=== PATIENT | female | born 1955 | race African-American/Black ===

== ENCOUNTER 2017-05-16 13:17 | Inpatient (IN) | payer OTHER ==
[~2017-05-16] VITALS: Ht 160 cm; Wt 98.9 kg
[~2017-05-16 13:17] MED LIST: GLUCOTROL 5 MG T5 MG PO; HYZAAR 100-25 T1 TAB PO; LASIX20 MG; METHOTREXATE2.5 MG PO; PERCOCET 7.5/321 TAB PO; PROTONIX40 MG PO; TENORMIN50 MG PO; ZOCOR40 MG PO; ZYLOPRIM100 MG PO
[2017-05-16] MEDS ORDERED: CALAN SR240 MG PO (15:43)
[2017-05-16] MEDS ORDERED: POTASSIUM CHLORIDE (15:44)
[2017-05-16] MEDS ORDERED: GLIPIZIDE10 MG PO (15:44)
[2017-05-16] MEDS ORDERED: CALCIPOTRIENE60 ML TP (15:45)
[2017-05-16] MEDS ORDERED: BD ULTRA-FINE PEN ND (15:45)
[2017-05-16 15:48] VITALS: BP 143/79; BMI 42.2
[2017-05-16 16:00] VITALS: BP 143/79
--- NOTE | 2017-05-16 17:46 | NUR ---
PT REFUSED JAMES CATH
--- NOTE | 2017-05-16 19:29 | NUR ---
RECEIVED REPORT, WILL ASSUME CARE OF PT, PT TALKING ON PHONE, PLACE [place] HAT IN COMMODE, EXPLAIN HOW IMPORTANT IT IS TO KEEP UP WITH I & O, PT REFUSED A JAMES, BED IS LOW, SRX2, CALL LIGHT IN REACH, FAMILY AT BED SIDE, WILL CONTINUE PLAN OF CARE
[2017-05-16 20:00] VITALS: BP 114/63
--- NOTE | 2017-05-17 02:15 | NUR ---
ASSESSMENT COMPLETE, SEE FLOW SHEET, BED IS LOW, SRX2, CALL LIGHT IN REACH, FAMILY AT BED SIDE, WILL CONTINUE PLAN OF CARE
[2017-05-17 04:20] VITALS: BP 168/96
[2017-05-17 06:03] LABS: BASOPHILS 0.2 % (0-2); EOSINOPHILS 1.4 % (0-7); HEMATOCRIT 32.4 % (36.0-48.0); HEMOGLOBIN 10.4 g/dL (12-16); IMMATURE GRANULOCYTES 0.2 % (0-5); LYMPHOCYTES 19.1 % (15-50); MCH 27.9 pg (26.0-34.0); MCHC 32.1 g/dL (31.0-37.0); MCV 86.9 fL (80.0-100.0); MEAN PLATELET VOLUME 9.9 fL (7.4-10.4); MONOCYTES 11.2 % (2-11); NEUTROPHILS 67.9 % (40-80); PLATELET COUNT 243 10x3/uL (130-400); RBC 3.73 10x6/uL (4.00-5.40); RDW 15.4 % (11.5-14.5); WBC 11.9 10x3/uL (4.8-10.8)
[2017-05-17 07:05] LABS: ANION GAP 11.7 mmol/L (8-16); CALCIUM 8.2 mg/dL (8.5-10.1); CARBON DIOXIDE 30.9 mmol/L (21.0-32.0); CREATININE - SERUM 5.1 mg/dL (0.6-1.3); PHOSPHOROUS 4.3 mg/dL (2.5-4.9); POTASSIUM - SERUM 4.6 mmol/L (3.5-5.1)
[2017-05-17 08:00] VITALS: BP 167/93
--- NOTE | 2017-05-17 10:00 | NUR ---
NEW ORDER FOR US OF LEFT AND RIGHT VEIN MAPPING.
--- NOTE | 2017-05-17 12:00 | NUR ---
GLUCOSE LEVEL 159. TWO UNITS OF S/S INSULIN GIVEN
[2017-05-17 12:30] VITALS: BP 143/78
--- NOTE | 2017-05-17 12:46 | NUR ---
RESTING QUIETLY IN BED. NO DISTRESS. WILL CONTINUE TO MONITOR.
[2017-05-17 13:27] VITALS: Ht 160 cm; Wt 98.9 kg
--- NOTE | 2017-05-17 15:24 | NUR ---
PRN PERCOCET GIVEN FOR LEFT SIDE RIB PAIN/DISC
[2017-05-17 15:38] VITALS: BP 134/64
[2017-05-17 19:00] VITALS: BP 172/93
--- NOTE | 2017-05-17 19:37 | NUR ---
RECEIVED REPORT, WILL ASSUME CARE OF PT, PT TALKING ON PHONE, DENIES ANY NEEDS AT THIS TIME, BED IS LOW, SRX2, CALL LIGHT IN REACH, WILL CONTINUE PLAN OF CARE
--- NOTE | 2017-05-17 19:55 | NUR ---
ASSEMBLER 1ST SHIFT AT BEDSIDE TO OBTAIN VITALS, CALL LIGHT IN REACH. WILL CONTINUE WITH PLAN OF CARE.
[2017-05-18] VITALS: BP 168/80
--- NOTE | 2017-05-18 01:51 | NUR ---
ASSESSMENT COMPLETE, SEE FLOW SHEET, PT SLEEPING, BED IS LOW, SRX2, CALL LIGHT IN REACH, AT BED SIDE WILL CONTINUE PLAN OF CARE
[2017-05-18 04:00] VITALS: BP 178/102
[2017-05-18 06:06] LABS: ANION GAP 9.7 mmol/L (8-16); CALCIUM 8.4 mg/dL (8.5-10.1); CARBON DIOXIDE 33.2 mmol/L (21.0-32.0); CREATININE - SERUM 5.6 mg/dL (0.6-1.3)
[2017-05-18 06:08] LABS: BASOPHILS 0.2 % (0-2); EOSINOPHILS 2.4 % (0-7); HEMATOCRIT 33.5 % (36.0-48.0); HEMOGLOBIN 10.9 g/dL (12-16); IMMATURE GRANULOCYTES 0.3 % (0-5); LYMPHOCYTES 21.5 % (15-50); MCH 27.9 pg (26.0-34.0); MCHC 32.5 g/dL (31.0-37.0); MCV 85.9 fL (80.0-100.0); MEAN PLATELET VOLUME 9.4 fL (7.4-10.4); MONOCYTES 12.3 % (2-11); NEUTROPHILS 63.3 % (40-80); PLATELET COUNT 253 10x3/uL (130-400); RDW 15.2 % (11.5-14.5); WBC 10.1 10x3/uL (4.8-10.8)
[2017-05-18 06:10] LABS: POTASSIUM - SERUM 3.9 mmol/L (3.5-5.1)
--- NOTE | 2017-05-18 07:57 | NUR ---
PT IN BED AWAKE AND ALERT. PROVIDED PAIN MEDICATION ORDERED. DENIES FURTHER NEEDS AT THIS TIME. WILL CONTIUE TO MONITOR
[2017-05-18 08:01] VITALS: BP 169/84
--- NOTE | 2017-05-18 09:47 | NUR ---
PT SITTING UP IN BED WATCHING TV IV BUMEX DRIP INFUSING TO R HAND WITH NO PROBLEM, DENIES NEEDS WILL CONT TO MONITOR
[2017-05-18 11:52] VITALS: BP 167/83
[2017-05-18 16:07] VITALS: BP 153/76
--- NOTE | 2017-05-18 18:54 | NUR ---
PT SITTING UP IN BED WATCHING TV. AKUA COHN LPN OBTAINED CONSENTS FOR PROCEDURE TOMORROW. BUMEX DRIP STILL INFUSING TO R HAND W/O ANY ISSUES. PT DENIES ANY NEEDS
[2017-05-18 19:00] VITALS: BP 166/94
--- NOTE | 2017-05-18 19:30 | NUR ---
ALERT/AWAKE TALKING TO VISITORS. REQUESTED APPLEJUICE. RR EVEN U/L WITH 02 AT 3L/NC. IV IN R HAND WITH BUMEX INFUSING AT 10ML/HR. TELEMETRY SHOWS 66 SR ON MONITOR. ORIENTED TO CALL LIGHT FOR ANY NEEDS.
--- NOTE | 2017-05-18 23:30 | NUR ---
ADMIN PERCOCET 5/325 MG PER REQUEST FOR C/O HIP/LEG PAIN LEVEL 7 ON NUMBER SCALE. DESCRIBED ACHING/THROBBING.
[2017-05-19 04:00] VITALS: BP 176/98
--- NOTE | 2017-05-19 05:25 | NUR ---
TAKING SHOWER WITH HIBICLENS. IV CAME OUT.
--- NOTE | 2017-05-19 06:25 | NUR ---
RESITED IV IN LEFT FA 22 GUAGE. DAVID BLOOD FROM CATHETER FOR TRACTOR MECHANIC.
[2017-05-19 06:39] LABS: BASOPHILS 0.3 % (0-2); EOSINOPHILS 2.6 % (0-7); HEMATOCRIT 34.5 % (36.0-48.0); HEMOGLOBIN 11.2 g/dL (12-16); IMMATURE GRANULOCYTES 0.3 % (0-5); LYMPHOCYTES 24.7 % (15-50); MCH 28.1 pg (26.0-34.0); MCHC 32.5 g/dL (31.0-37.0); MCV 86.7 fL (80.0-100.0); MEAN PLATELET VOLUME 9.8 fL (7.4-10.4); MONOCYTES 11.7 % (2-11); NEUTROPHILS 60.4 % (40-80); PLATELET COUNT 292 10x3/uL (130-400); RBC 3.98 10x6/uL (4.00-5.40); RDW 15.3 % (11.5-14.5); WBC 11.1 10x3/uL (4.8-10.8)
[2017-05-19 06:47] LABS: ANION GAP 8.2 mmol/L (8-16); CALCIUM 8.5 mg/dL (8.5-10.1); CARBON DIOXIDE 33.4 mmol/L (21.0-32.0); CREATININE - SERUM 5.8 mg/dL (0.6-1.3); POTASSIUM - SERUM 3.6 mmol/L (3.5-5.1)
--- NOTE | 2017-05-19 07:30 | NUR ---
RECEIVED REPORT. ASSUMED CARE OF PATIENT. PATIENT NPO FOR SURGICAL PROCEDURE THIS AM. PATIETN ALERT/ORIENTED. RESP EVEN AND UNLABORED. AT BEDSIDE. CALL LIGHT WITHIN REACH. NO DISTRESS.
[2017-05-19 08:00] VITALS: BP 170/96
--- NOTE | 2017-05-19 08:03 | NUR ---
SURGERY LEFT WITH PATIENT VIA BED AT 0800. PATIENT LEFT UNIT IN NO DISTRESS.
--- NOTE | 2017-05-19 08:40 | NUR ---
SURGERY CALLED AT 0830 DUE TO PATIENT STATES SHE TOLD THE SURGERY NURSES THAT SHE HAD NOT BEEN PREOP'T. INFORMED SURGERY NURSE THAT THIS COLORIST FORMULATOR HAD NOT BEEN CALLED TO PREOP PATIENT AND SURGERY NURSE STATES THAT SHE WAS ON UNIT AND TOLD THE PATIENTS NURSE AND EVEN PULLED ALL PREOP ORDERS IN THE COMPUTER, UP WITH PATIENTS NURSE. SURGERY NURSE STATES THAT THE PATIENT NURSE STATED SHE WOULD GIVE THE PREOP MEDS AT THAT TIME. AFTER SURGERY NURSE DESCRIBED THE PATIENT NURSE THAT THIS TOOK PLACE WITH, THIS COLORIST FORMULATOR ACKNOLWEDGED WHOM SHE WAS DESCRIBING. APOLOGIZED TO SURGERY NURSE FOR MEDS NOT BEING ADMINISTERED. MEDS TAKEN TO SURGERY AT 0830 FOR ADMINISTRATION.
[2017-05-19 12:03] VITALS: BP 150/76
--- NOTE | 2017-05-19 12:05 | NUR ---
RECEIVED PATIENT FROM RECOVERY AT THIS TIME. EYES CLOSED, EASILY AROUSED. RESP EVEN AND UNLABORED. BP 150/76. AT BEDSIDE. PATIENT REQUESTING ICE CHIPS FOR SORE THROAT FROM INTUBATION. LEFT ARM ELEVATED ON PILLOW. 2 SITES WITH DRESSINGS CLEAN DRY AND INTACT. RIGHT CHEST HEMESPLIT. BIOPATCH VISIBLE. NO DISTRESS. DENIES ANY PAIN. CALL LIGHT WITHIN REACH.
--- NOTE | 2017-05-19 14:26 | NUR ---
JUICE TO FLOOR AT THIS TIME FOR PATIENT.
[2017-05-19 16:00] VITALS: BP 175/76
--- NOTE | 2017-05-19 16:42 | NUR ---
FSBS 153. 2 UNITS HUMULIN R ADMINISTERED PER SLIDING SCALE.
--- NOTE | 2017-05-19 18:00 | NUR ---
MEDICATED FOR PAIN AT THIS TIME. NO DISTRESS.
--- NOTE | 2017-05-19 18:07 | NUR ---
EXTRA PILLOWS PROVIDED. ELEVATED LEFT ARM. ICE PACK APPLIED. PATIENT RESTING WITH EYES CLOSED. FAMILY AT BEDSIDE. NO DISTRESS.
--- NOTE | 2017-05-19 19:17 | NUR ---
PT LYING IN BED WITH LT ARM ELEVATED ON PILLOW ITH ICE PACK ON TOP OF SITE. PT STATED ARM IS THROBBING, PT CAN HAVE ANOTHER PAIN MEDICATION AT 2200. USE DISTRACTION METHOD TO DIVERT PAIN. BED IS IN LOW POSITION, CALL LIGHT IN REACH
[2017-05-19 20:00] VITALS: BP 143/67
--- NOTE | 2017-05-19 20:16 | NUR ---
PT DAUGHTER CAME TO NURSES STATION REQUESTIONG COMPLETE BED CHANGE,PT FOUND BUG IN LINENS AND DAUGHTER KILLED IT. PT ALSO REQUESTED BATH AT THIS TIME, BROUGHT PATIENT BUCKET OF BATH SUPPLIES BUT DAUGHTER WANTED TO GIVE PT BATH, BED IN LOW PSOITION CALL LIGHT IS IN REACH.
[2017-05-20] VITALS: BP 146/81
[2017-05-20 04:00] VITALS: BP 150/77
[2017-05-20 06:07] LABS: BASOPHILS 0.3 % (0-2); EOSINOPHILS 2.3 % (0-7); HEMATOCRIT 31.9 % (36.0-48.0); HEMOGLOBIN 10.3 g/dL (12-16); IMMATURE GRANULOCYTES 0.3 % (0-5); LYMPHOCYTES 24.3 % (15-50); MCH 28.1 pg (26.0-34.0); MCHC 32.3 g/dL (31.0-37.0); MCV 87.2 fL (80.0-100.0); MEAN PLATELET VOLUME 9.8 fL (7.4-10.4); MONOCYTES 12.5 % (2-11); NEUTROPHILS 60.3 % (40-80); PLATELET COUNT 235 10x3/uL (130-400); RBC 3.66 10x6/uL (4.00-5.40); RDW 15.3 % (11.5-14.5); WBC 10.4 10x3/uL (4.8-10.8)
[2017-05-20 06:51] LABS: ANION GAP 9.7 mmol/L (8-16); CALCIUM 8.1 mg/dL (8.5-10.1); POTASSIUM - SERUM 3.7 mmol/L (3.5-5.1)
--- NOTE | 2017-05-20 07:10 | NUR ---
RECEIVED REPORT. ASSUMED CARE OF PATIENT. PATIENT RESTING WITH EYES CLOSED, LYING ON LEFT LATERAL SIDE WITH LEFT ARM ELEVATED ON PILLOWS EXTENDED AWAY FROM BODY. PATIENT WITH FAMILY AT BEDSIDE WITH EYES CLOSED WELL. PATIENT IS EASILY AROUSED. RESP EVEN AND UNLABORED. LEFT ARM WITH BRUISING NOTED. CALL LIGHT WITHIN REACH. NO DISTRESS.
[2017-05-20 08:34] VITALS: BP 161/70
--- NOTE | 2017-05-20 10:28 | NUR ---
MEDICATED FOR PAIN AT THIS TIME. NO DISTRESS.
--- NOTE | 2017-05-20 11:23 | NUR ---
FSBS 106. NO INSULIN REQUIRED PER SLIDING SCALE.
[2017-05-20 12:04] VITALS: BP 153/77
[2017-05-20 16:00] VITALS: BP 122/55
--- NOTE | 2017-05-20 16:32 | NUR ---
FSBS 92. NO INSULIN ADMINISTERED PER SLIDING SCALE.
--- NOTE | 2017-05-20 18:55 | NUR ---
SITTING IN BED, FAMILY AT BEDSIDE. CALL LIGHT WITHIN REACH. NO DISTRESS. DENIES NEEDS.
[2017-05-20 21:40] VITALS: BP 138/67
[2017-05-21 06:05] LABS: BASOPHILS 0.3 % (0-2); EOSINOPHILS 2.2 % (0-7); HEMATOCRIT 30.5 % (36.0-48.0); HEMOGLOBIN 9.7 g/dL (12-16); IMMATURE GRANULOCYTES 0.2 % (0-5); LYMPHOCYTES 20.2 % (15-50); MCH 27.7 pg (26.0-34.0); MCHC 31.8 g/dL (31.0-37.0); MCV 87.1 fL (80.0-100.0); MEAN PLATELET VOLUME 8.6 fL (7.4-10.4); MONOCYTES 13.9 % (2-11); NEUTROPHILS 63.2 % (40-80); RDW 15.2 % (11.5-14.5); WBC 9.6 10x3/uL (4.8-10.8)
[2017-05-21 06:09] LABS: PLATELET COUNT 178 10x3/uL (130-400)
[2017-05-21 06:24] LABS: ANION GAP 9.9 mmol/L (8-16); CALCIUM 7.9 mg/dL (8.5-10.1); CARBON DIOXIDE 32.5 mmol/L (21.0-32.0); CREATININE - SERUM 5.7 mg/dL (0.6-1.3); POTASSIUM - SERUM 3.4 mmol/L (3.5-5.1)
[2017-05-21 07:34] VITALS: BP 156/72
--- NOTE | 2017-05-21 08:26 | NUR ---
PATIENT IS SITTING UP IN BED. PATIENT IS AWAKE, ALERT, AND ORIENTED X4. DAUGHTER AT PATIENT'S BEDSIDE. PATIENT COMPLAINS OF PAIN IN HER LEFT LEG. PATIENT REPORTS HER PAIN LEVEL AN "8" ON A 0-10 SCALE. PRN PERCOCET GIVEN TO PATIENT FOR PAIN. PATIENT DENIES ANY FURTHER NEEDS AT PRESENT TIME. CALL LIGHT IN PATIENT'S REACH. WILL MONITOR PATIENT.
[2017-05-21 11:50] VITALS: BP 173/81
--- NOTE | 2017-05-21 12:55 | NUR ---
PATIENT TRANSFERRED VIA WHEELCHAIR TO DIALYSIS.
--- NOTE | 2017-05-21 13:37 | NUR ---
Nutrition follow-up: Diet: Renal ADA consistent CHO PO intake 100% of meals Labs reviewed no BM charted Wt: 230# -> down 9# from admit. Started dialysis today. RDN following.
--- NOTE | 2017-05-21 15:41 | NUR ---
PATIENT TRANSFERRED BACK TO HER ROOM VIA WHEELCHAIR FROM DIALYSIS.
--- NOTE | 2017-05-21 17:09 | NUR ---
Patient Name: KISHA NIELSEN Admission Status: Urgent Accout number: [id number] Admission Date: 05-16-2017 : 1955 Admission Diagnosis:TYPE 2 DIABETES MELLITUS WITH DIABETIC NEPHROPATHY Attending: HUNTER Current LOS: 5 Anticipated DC Date: 05-24-2017 Planned Disposition: Home Primary Insurance: [employer] PPO Discharge Planning Comments: * Is the patient Alert and Oriented? Yes 0 * How many steps to enter\exit or inside your home? 4-O/4-I 0 * PCP DR. CARLITO VILLATORO, [place] 0 * Pharmacy [facility] 0 * Preadmission Environment Home with Family 0 * ADLs Independent 0 * Equipment Cane 0 * Other Equipment NO MEDICAL EQUIPMENT PROVIDER PREFERECE 0 * List name and contact numbers for known caregivers / representatives who currently or will assist patient after discharge: ANDERS NIELSEN, SPOUSE, 0 * Community resources currently utilized None 0 * Please name any agencies selected above. NONE 0 * Additional services required to return to the preadmission environment? Yes * Can the patient safely return to the preadmission environment? Yes 0 * Has this patient been hospitalized within the prior 30 days at any hospital? No 0 CM MET WITH PT IN ROOM TO DISCUSS DISCHARGE PLANNING AND NEEDS. PT REPORTS LIVING AT HOME INDEPENDENTLY WITH HER SPOUSE. PT HAS A CANE WITH NO MEDICAL EQUIPMENT PROVIDER PREFERENCE. PT HAS NO OUTSIDE SERVICES ASSISTING IN THE HOME. CM DISCUSSED AVAILABILITY OF HOME HEALTH, REHAB SERVICES AND MEDICAL EQUIPMENT. PT REPORTS SHE WILL NEED OUTPATIENT DIALYSIS AND THE DOCTOR TOLD HER THAT IT WILL BE ARRANGED IN [place] THREE DAYS PER WEEK. PT REPORTS FAMILY WILL ASSIST WITH TRANSPORTATION TO DIALYSIS. PT REPORTS HER SPOUSE OR DAUGHTER WILL PICK HER UP FOR DISCHARGE HOME. CM TO FOLLOW UP WITH PHYSICIAN FOR ORDER TO ARRANGE OUTPATIENT HEMODIALYSIS AND ALSO WITH MANOJ HOLDER, PATIENT PATHWAYS COORDINATOR TO ARRANGE OUTPATIENT DIALYSIS CLINIC FOR DISCHARGE HOME. Cylinder Head Assembler: Humphrey Lorenzana
--- NOTE | 2017-05-21 19:30 | NUR ---
FRIEND/FAMILY IN BEDSIDE TALK TO PT.
[2017-05-21 20:59] VITALS: BP 123/69
[2017-05-22 01:20] VITALS: BP 135/77
--- NOTE | 2017-05-22 01:52 | NUR ---
REST IN BED, EYE CLOSE, BED LOW, CALL LIGHT WITHIN REACH.
[2017-05-22 05:04] VITALS: BP 124/61
[2017-05-22 05:27] LABS: BASOPHILS 0.2 % (0-2); EOSINOPHILS 1.2 % (0-7); HEMATOCRIT 33.2 % (36.0-48.0); HEMOGLOBIN 10.6 g/dL (12-16); IMMATURE GRANULOCYTES 0.3 % (0-5); LYMPHOCYTES 21.4 % (15-50); MCHC 31.9 g/dL (31.0-37.0); MCV 87.6 fL (80.0-100.0); MEAN PLATELET VOLUME 9.1 fL (7.4-10.4); MONOCYTES 18.2 % (2-11); NEUTROPHILS 58.7 % (40-80); PLATELET COUNT 208 10x3/uL (130-400); RBC 3.79 10x6/uL (4.00-5.40); RDW 15.3 % (11.5-14.5)
[2017-05-22 05:33] LABS: WBC 12.6 10x3/uL (4.8-10.8)
[2017-05-22 05:37] LABS: ANION GAP 9.1 mmol/L (8-16); CALCIUM 8.3 mg/dL (8.5-10.1); CARBON DIOXIDE 34.6 mmol/L (21.0-32.0); CREATININE - SERUM 5.5 mg/dL (0.6-1.3); POTASSIUM - SERUM 3.7 mmol/L (3.5-5.1)
--- NOTE | 2017-05-22 05:51 | NUR ---
PT BLOOD SUGAR IS 67, APPLE JUICE AND GRAHAMS CRACKER GIVEN.
--- NOTE | 2017-05-22 06:40 | NUR ---
RECHECK PT BLOOD SUGAR IS 103.
[2017-05-22 08:12] VITALS: BP 138/69
--- NOTE | 2017-05-22 08:15 | NUR ---
INTRODUCED MYSELF TO PT PRIMARY RN FOR TODAYS SHIFT. SHIFT ASSESSMENT COMPLETED. PT A&O SITTING UP IN BED RESTING QUIETLY. PT C/O L.ARM PAIN AND THAT SHE DOESNT GET RELIEF FROM CURRENT PAIN MANAGEMENT, WILL TALK TO DOCTOR ABOUT IT. PTS LEFT ARM HAS DRSG CDI TO L.FA FROM SX OF FISTULA PLACEMENT. PT HAS R.WRIST PIV IN PLACE WITH DRSG CDI AND SWAB CAPS IN USE. PROVIDED PT WITH AN ICE PACK AND ELEVATED L.ARM TO HELP WITH SWELLING AND PAIN. PT VOICED THANKS. PT HAS MULTIPLE FAMILY MEMBERS IN ROOM AND DENIES ANY FURTHER NEEDS AT THIS TIME. CL IN REACH, BED IN LOWEST, SIDE RAILS X2. WILL CPOC.
--- NOTE | 2017-05-22 10:20 | NUR ---
CHANGED PTS R.CHEST HEMESPLIT DRSG R/T IT BEING SOILED AND DRSG PEELING OFF. STERILE TECHNIQUE USED. BIOPATCH IN PLACE, CAPS IN USE, DRSG CDI, DATED AND INITIALED. PT RESTING IN BED WITH FAMILY AT BEDSIDE NO FURTHER NEEDS AT THIS TIME. CL IN REACH, BED IN LOWEST, SIDE RAILS X2. WILL CPOC.
[2017-05-22 10:41] VITALS: BP 117/63
[2017-05-22 11:47] VITALS: BP 122/63
--- NOTE | 2017-05-22 11:56 | NUR ---
FSBS 90. PT SITTING UP IN BED ABOUT TO EAT LUNCH. NO S/S INSULIN REQUIRED. PT C/O HER L.ARM STILL HURTING THROBBING, REQUESTED AND WAS PROVIDED WITH PRN PAIN MEDICATION. AT BEDSIDE. NO FURTHER NEEDS AT THIS TIME. WILL CPOC.
--- NOTE | 2017-05-22 12:22 | OP ---
PATIENT NAME: KISHA NIELSEN MEDICAL RECORD: [id number] :[birth year] LOCATION:D. D.2140 ADMISSION DATE:05/16/17 SURGEON: DAYLIN CARRANZA MD DATE OF OPERATION: 05/19/2017 REFERRED BY: Geovanni Castillo MD PREOPERATIVE DIAGNOSES: Diabetic nephropathy and end-stage renal disease needing dialysis and nephrotic syndrome. POSTOPERATIVE DIAGNOSES: Diabetic nephropathy and end-stage renal disease needing dialysis and nephrotic syndrome. OPERATION PERFORMED: 1. Implantation of a left forearm loop PTFE AV graft utilizing 6-mm diameter standard wall thickness straight [place] Propaten PTFE graft. 2. Insertion of a right internal jugular HemoSplit tunneled dialysis catheter using ultrasound as well as fluoroscopic guidance. SURGEON: Daylin Carranza MD ANESTHESIA: General with an LMA per FLOOR NURSE. PREOPERATIVE NOTE: Ms. Nielsen is a 61-year-old female from [facility] who has diabetes and has been known to have diabetic nephropathy and chronic kidney disease for some time. She is seeing Dr. Melo Coles in [place]. Over the last 6 months, she has suffered a significant decline in renal function and was admitted to the hospital with nephrotic syndrome, fluid overload, hypoxia, and near uremia. She has responded well to diuresis yet shows diminished creatinine clearance and Dr. Castillo wants to go ahead and start dialysis, so she is brought to the operating room at this time for insertion of a tunneled dialysis catheter and also either creation of an AV fistula or implantation of an AV graft in the left arm. She is right handed. PROCEDURE IN DETAIL: With the patient under general anesthesia with an LMA by FLOOR NURSE in the supine position, she was prepped and draped in a sterile manner. The left arm was examined with ultrasound after application of topical nitroglycerin paste and the use of a Leslie drain as a proximal venous tourniquet. The patient had fairly small veins, cephalic veins in particular, but adequate median cubital vein draining to the cephalic vein in the upper arm and a good brachial artery. She could be a candidate for a translocated basilic vein fistula and possibly could mature a cephalic vein fistula in the upper arm; however, she needs to start dialysis now and I thought it was best if she had a graft implanted and so I chose to implant a forearm loop graft. I made a transverse incision and exposed the median cubital vein and brachial artery. Branches and tributaries were controlled with Silastic loops or ligated with Vicryl ties or clips and the vessels controlled with Silastic loops. A counter incision was made on the radial aspect of the forearm distally, just above the wrist and I took the 6-mm standard wall thickness Propaten PTFE graft and placed it in subcutaneous tunnels with the arterial limb medial and the venous limb lateral. The graft was shortened and beveled on each end. The vein was occluded and opened and then flushed proximally and distally with heparinized saline and an end-to-side graft to vein anastomosis approximately 12 mm in length was made with running 6-0 Prolene. The suture line was treated with Evicel and after a proper elapsed time, the graft was gently flushed with OPERATIVE REPORT [id number] KISHA NIELSEN heparinized saline and the suture line found to be hemostatic. The loops were released on the vein and a vascular clamp applied to the PTFE graft. It was then pulled through the tunnel to prepare for the arterial anastomosis. The artery was occluded with Silastic loops, opened for a distance of about 5 mm. It was flushed proximally and distally with heparinized saline and a graft to artery end-to-side anastomosis was then done with running 6-0 Prolene. The suture line was treated with Evicel and after suitable time had elapsed, the clamps and loops were released and excellent flow was established in the fistula and in the digital arteries. The patient's wounds were irrigated with Ancef/gentamicin solution, infiltrated with 0.25% Marcaine without epinephrine and closed with interrupted inverted 3-0 Vicryl and running intracuticular 4-0 Monocryl and Dermabond glue. They were dressed with Maxorb Ag, Tegaderm, and Cavilon skin prep. The right neck was then approached. I used ultrasound to locate the right internal jugular vein. It was of normal caliber and collapsible without any sonographic abnormality. I made an incision at the base of the neck and then with ultrasound guidance, inserted a needle from that incision into the internal jugular vein. Under fluoroscopy, a guidewire was advanced into the right atrium and serial dilators passed over the wire and lastly, a dilator peel-away introducer sheath. I chose a 19-cm HemoSplit catheter, made an entry site for just beneath the clavicle and placed the catheter in a subcutaneous tunnel bringing it up to the cervical incision where it was then inserted through the peel-away introducer. The catheter tip was positioned appropriately deep in the right atrium. There were no complications, kinks or other problems seen on x-ray. Both lumens of the catheter aspirated blood easily. They were then flushed easily with saline and lastly heparin locked, clamped and capped. The catheter was sutured to the skin near the entry site with 2-0 silk. The cervical incision closed with interrupted inverted 3-0 Vicryl. That incision and the entry site were closed and sealed further with Dermabond glue and dressed with Maxorb Ag. A chlorhexidine containing disc was applied also to the catheter at the exit site and then both sites were dressed with Cavilon and Tegaderm. The patient then in stable condition was awakened and taken to the recovery room. Blood loss during the operation was insignificant and unreplaced. All sponges, instruments and needles were accounted for. No drain was used. No surgical specimen was submitted for histopathology. The patient should be able to have dialysis today via her new tunneled dialysis catheter and should be able to go home, then whenever okay with Dr. Castillo. I will plan to see her back in my office in about 2 weeks to check her incisions and the forearm loop graft, etc. TRANSINT:[id number] Voice Confirmation ID: [id number] DOCUMENT ID: [id number] DAYLIN CARRANZA MD at 1222 CC: GEOVANNI CASTILLO MD [id number] DICTATION DATE: 05/19/17 1152 MEASUREMENT DEPARTMENT CHIEF CLERK: 05/19/[address] [facility] [address] [id number]
--- NOTE | 2017-05-22 12:53 | NUR ---
Patient Name: KISHA NIELSEN Encounter No: [id number] : 1955 Primary Insurance: AET[employer] PPO Anticipated DC Date: 05-24-2017 Planned Disposition: Home DCP follow-up note: CM SPOKE TO RENAL NURSE JACKELIN, RECEIVED ORDER FOR ARRANGEMENT OF OUTPATIENT DIALYSIS CLINIC PLACEMENT FOR PATIENT. CM SPOKE TO MANOJ HOLDER, PATIENT PATHWAYS COORDINATOR WHO WILL ARRANGE OUTPATIENT DIALYSIS CLINIC FOR DISCHARGE HOME. CM SPOKE TO LINDSAY [employer] 'S INSURANCE, , WHO WAS ABLE TO INFORM CM THAT [facility] IN [place] IS IN NETWORK WITH INSURANCE. CM WAITING ARRANGEMENT OF OUTPATIENT DIALYSIS CLINIC. CM TO FOLLOW AND ASSIST NEEDED. Paper Maker: Humphrey Lorenzana
--- NOTE | 2017-05-22 14:07 | NUR ---
PT GOING DOWN STAIRS FOR DIALYSIS. NO CURRENT NEEDS. WILL CTM.
--- NOTE | 2017-05-22 17:59 | NUR ---
PT STARTED VOMITING UP HER DINNER THAT SHE WAS EATING. CALLED AND REC'D ORDER FOR IV ZOFRAN AND WILL PROVIDE TO PT. PT ALSO IN SEVERE PAIN TO L.ARM AND LOW BACK WILL ALSO PROVIDE PRN PAIN MEDICATION. REFILLED PTS ICE PACKS AND PROVIDED COLD RAG. PT VOICED THANKS AND IS GOING TO TRY AND GET SOME REST. CL IN REACH, BED IN LOWEST, SIDE RAILS X2 AND DAUGHTER AT BEDSIDE. WILL CPOC.
[2017-05-22 20:39] VITALS: BP 123/58
--- NOTE | 2017-05-22 20:55 | NUR ---
C/O LEFT ARM PAIN LEVEL 8 ON NUMBER SCALE. ADMIN PERCOCET PO 2 TABS. CHECKED BS AT 103. REQUESTED ICE PACK REFILLED FOR HER ARM. ELEVATED ON PILLOWS. NO OTHER NEEDS REQUESTED.
[2017-05-23 00:07] VITALS: BP 163/80
--- NOTE | 2017-05-23 03:40 | NUR ---
PATIENT FINANCIAL COUNSELOR TAKING VS. PATIENT DENIES ANY NEEDS OR DISCOMFORTS.
[2017-05-23 05:12] VITALS: BP 145/71
[2017-05-23 05:26] LABS: BASOPHILS 0.3 % (0-2); HEMATOCRIT 32.4 % (36.0-48.0); HEMOGLOBIN 10.5 g/dL (12-16); IMMATURE GRANULOCYTES 0.3 % (0-5); LYMPHOCYTES 21.4 % (15-50); MCH 28.5 pg (26.0-34.0); MCHC 32.4 g/dL (31.0-37.0); MCV 87.8 fL (80.0-100.0); MEAN PLATELET VOLUME 9.5 fL (7.4-10.4); MONOCYTES 15.6 % (2-11); NEUTROPHILS 61.4 % (40-80); PLATELET COUNT 201 10x3/uL (130-400); RBC 3.69 10x6/uL (4.00-5.40); RDW 15.3 % (11.5-14.5); WBC 10.9 10x3/uL (4.8-10.8)
[2017-05-23 05:57] LABS: ANION GAP 12.5 mmol/L (8-16); CALCIUM 8.6 mg/dL (8.5-10.1); CARBON DIOXIDE 30.3 mmol/L (21.0-32.0); CREATININE - SERUM 4.8 mg/dL (0.6-1.3); PHOSPHOROUS 5.3 mg/dL (2.5-4.9); POTASSIUM - SERUM 3.8 mmol/L (3.5-5.1)
--- NOTE | 2017-05-23 07:30 | NUR ---
AM ROUNDS COMPLETED. PT LYING BACK IN BED WITH EYES CLOSED. RR NONLABORED ON RA. SON AT BEDSIDE. NO S/S OF DISTRESS OR NEEDS AT THIS TIME. CL IN REACH, BED IN LOWEST, SIDE RAILS X2. WILL CPOC.
[2017-05-23 09:40] VITALS: BP 105/83
--- NOTE | 2017-05-23 11:00 | NUR ---
PT BEING TRANSFERRED TO DIALYSIS FOR TREATMENT. NO FURTHER NEEDS AT THIS TIME.
--- NOTE | 2017-05-23 14:43 | NUR ---
PT BACK FROM DIALYSIS AND STARTING THROWING UP. CLEAR LIQUID. CLEANED PT UP AND PROVIDED HER WITH PRN ZOFRAN. PT ALSO STATES HER LEFT ARM PAIN IS STILL SEVERELY THROBBING. PROVIDED HER WITH HER PRN PAIN MEDICATION WELL. PT NOW RESTING IN BED WITH SON AT BEDSIDE AND DENIES ANY FURTHER NEEDS AT THIS TIME. WILL CPOC.
--- NOTE | 2017-05-23 16:31 | NUR ---
FSBS 189 DID NOT TREAT PER PT REQUEST. PT BEEN RUNNING LOW LATELY AND HASNT BEEN EATING. PT WAS EATING FRUIT WHEN I HAD CHECKED IT AND IS THINKING IT WAS JUST HIGH R/T THAT. NO FURTHER NEEDS AT THIS TIME. WILL CTM.
--- NOTE | 2017-05-23 16:57 | NUR ---
Patient Name: KISHA NIELSEN Encounter No: [id number] : 1955 Primary Insurance: AET[employer] PPO Anticipated DC Date: 05-24-2017 Planned Disposition: Home DCP follow-up note: CM RECEIVED CALL FROM MANOJ HOLDER, PATIENT PATHWAYS COORDINATOR WHO IS WORKING TO ARRANGE OUTPATIENT DIALYSIS CLINIC FOR PT'S DISCHARGE HOME. THE LAB TESTS THAT ARE REQUIRED FOR CLINIC ARRANGEMENT WERE NOT ORDERED UNTIL TODAY AND THEY ARE SEND OUT LABS. RESULTS MAY BE BACK TOMORROW, AT THE EARLIEST. PLANNED CLINIC SCHEDULE, PENDING PT ACCEPTANCE AT CLINIC IS: [facility] IN [place], T//, 1100AM. CM SPOKE TO RENAL NURSE EMRE WHO REPORTS THAT SHE IS AWARE THAT PT CANNOT START NEW CLINIC ON SUNDAY AND IF THE HEP PANEL IS RETURNED AND CLINIC ACCEPTS, PLANNED DISCHARGE WILL BE SUNDAY AFTER DIALYSIS AT THE HOSPITAL FOR PT TO ADMIT TO OUTPATIENT CLINIC IN [place] ON NEXT SUNDAY. CM WAITING LAB RESULTS AND ARRANGEMENT OF OUTPATIENT DIALYSIS CLINIC. CM TO FOLLOW AND ASSIST NEEDED. Test Engineering Manager: Humphrey Lorenzana
[2017-05-23 19:00] VITALS: BP 107/71
--- NOTE | 2017-05-23 20:15 | NUR ---
ALERT/AWAKE TALKING ON PHONE. ADMIN BUPRENEX 1.5MG IV PER REQUEST FOR C/O LT ARM PAIN LEVEL 7 ON NUMBER SCALE. DESCRIBED THROBBING. CHECKED BS AT 226, REQUESTED 2 UNITS HUMULIN R INSULIN GIVEN INSTEAD OF 4 UNITS, DUE TO HAD JUST HAD FRUIT AND JUICE.
--- NOTE | 2017-05-24 04:07 | NUR ---
RESTING WITH EYES CLOSED. RR EVEN U/L. ON 02 AT 3L. FAMILY MEMBER PRESENT IN ROOM.
[2017-05-24 05:39] LABS: ANION GAP 13.5 mmol/L (8-16); CALCIUM 8.9 mg/dL (8.5-10.1); CARBON DIOXIDE 31.6 mmol/L (21.0-32.0); CREATININE - SERUM 5.9 mg/dL (0.6-1.3); POTASSIUM - SERUM 4.1 mmol/L (3.5-5.1)
[2017-05-24 05:42] LABS: BASOPHILS 0.3 % (0-2); EOSINOPHILS 0.5 % (0-7); HEMATOCRIT 34.3 % (36.0-48.0); HEMOGLOBIN 10.9 g/dL (12-16); IMMATURE GRANULOCYTES 0.2 % (0-5); LYMPHOCYTES 21.4 % (15-50); MCH 27.9 pg (26.0-34.0); MCHC 31.8 g/dL (31.0-37.0); MCV 87.9 fL (80.0-100.0); MEAN PLATELET VOLUME 9.4 fL (7.4-10.4); MONOCYTES 16.1 % (2-11); NEUTROPHILS 61.5 % (40-80); PLATELET COUNT 246 10x3/uL (130-400); WBC 12.6 10x3/uL (4.8-10.8)
--- NOTE | 2017-05-24 05:50 | NUR ---
ADMIN BUPRENEX 0.15MG IV PER REQUEST FOR C/O LEFT ARM PAIN LEVEL 7 ON NUMBER SCALE. ADMIN SCHED MEDS AND 2 UNITS HUMULIN R INSULIN FOR BS 190. NO OTHER NEEDS VOICED.
[2017-05-24 06:22] VITALS: BP 125/67
--- NOTE | 2017-05-24 07:36 | NUR ---
AM ROUNDING- RECEIVED REPORT FROM CERTIFIED NURSE OPERATING ROOM NURSE KISHA. PT IS CURRENLTY LAYING IN BED ON BACK WITH EYES OPEN RESTING. PT DENIES ANY PAIN AT CURRENT TIME. ON 02 AT 3L VIA NC. NO MONITOR. IV SEEN TO RIGHT WRIST THAT IS CURRENTLY SALINE LOCKED. RESERVE LEFT ARM FOR AVF. LEFT CHEST HEMOSPLIT SEEN FOR DIALYSIS. GAVE PT GRAPE JUICE REQUESTED. NO OTHER NEED AT CURRENT TIME. WILL CONTINUE TO MONITOR AND CONTINUE WITH PLAN OF CARE.
[2017-05-24 08:27] VITALS: BP 110/50
[2017-05-24 09:15] LABS: HEPATITIS C ANTIBODY <0.1 (0.0-0.9)
[2017-05-24 12:05] VITALS: BP 121/59
--- NOTE | 2017-05-24 13:14 | NUR ---
YANCY BENÍTEZ NP REGARDING PTS DAUGHTERS CONCERNS FOR PT NOT BEING D/C YET. WILL AWAIT CALLBACK AND CONTINUE TO MONITOR.
--- NOTE | 2017-05-24 13:44 | NUR ---
RECEIVED CALLBACK FROM JACKELIN ARCOS. I INFORMED MARGARITA BENÍTEZ OF PTS DAUGHTERS CONCERNS REGARDING PT BEING D/C TODAY. MARGARITA BENÍTEZ STATES WHAT THEY ARE WAITING ON IS PTS HEP PROFILE RESULTS TO COME BACK DUE TO [facility] [place] NEEDING RESULTS. WILL CALL PTS DAUGHTER AND INFORM HER OF THIS.
--- NOTE | 2017-05-24 14:10 | NUR ---
Nutrition Follow Up: Pt was in HD at the time of RD visit. Interview deferred at this time. Pt is eating 58% meal avg on a renal ADA diet. Wt loss since admit noted - likely r/t fluid. No BM since admit. Labs reviewed. Meds noted. Rec continue current diet. RD following.
--- NOTE | 2017-05-24 14:51 | NUR ---
Visyis Coordinator: Patient Pathways: Patient has been accepted at [facility] on a Sunday//Sunday @ 11:15am. This clinic doesn't start patient's on Sunday's so the patient can start in-center on May 25 @ 6:30am. Welcome Letter given to CM for patient. MAURICIO STARK.
--- NOTE | 2017-05-24 15:09 | NUR ---
CALLED PTS DAUGHTER AND INFORMED HER OF WHAT MARGARITA BENÍTEZ STATES ABOUT PT D/C HOME TODAY. DAUGHTER THANKED ME FOR CALLING HER AND INFORMING HER.
--- NOTE | 2017-05-24 15:56 | NUR ---
Patient Name: KISHA NIELSEN Encounter No: [id number] : 1955 Primary Insurance: [employer] PPO Anticipated DC Date: 05-24-2017 Planned Disposition: Home DCP follow-up note: CM RECEIVED CALL FROM MANOJ HOLDER OF [facility], CLINIC HAS ACCEPTED PT FOR DIALYSIS TOMORROW MORNING FOR ADMIT AT 0630; PT WILL HAVE DIALYSIS ON SUNDAY AT 1115 AM. CM RECEIVED WELCOME LETTER, COPY IN CHART, CM MET WITH PT AND SON IN ROOM, PROVIDED WELCOME LETTER, PT ALREADY HAD [facility] NAVIGATOR. PT REPORTS SHE WILL RETURN HOME TO [place] FOR DIALYSIS THERE AND WILL MAKE ARRANGEMENTS WITH THE [facility] FOR UNIT ARRANGEMENTS WHERE HER SON LIVES PRIOR TO GOING TO VISIT; PT ASSURES CM THAT SHE KNOWS THIS NEEDS TO BE DONE AHEAD OF TIME. PT REPORTS FAMILY TO ASSIST WITH TRANSPORT TO AND FROM DIALYSIS AT HOME IN [place]. PT'S SON HERE FOR DISCHARGE TRANSPORT HOME TODAY. CM DISCUSSED REHAB, HOME HEALTH AND MEDICAL EQUIPMENT AVAILABILITY; PT DENIES DISCHARGE NEEDS. CM CALLED RENAL NURSE JACKELIN AND INFORMED OF ARRANGEMENTS, PT WILL DISCHARGE SHORTLY. CM NOTIFIED LOGISTICS ANALYST NURSE. Humphrey Lorenzana, CASE MANAGEMENT
--- NOTE | 2017-05-24 16:09 | NUR ---
D/C INSTRUCTIONS EXPLAINED TO PT. D/C INSTRUCTIONS SIGNED BY PTS SON ( REQUESTED BY PT) AND PLACED IN CHART. IV TO RIGHT WRIST REMOVED WITH CATH TIP INTACT. COVERED SITE WITH 2X2 GAUZE PADS AND SECURED WITH TAPE. HEART MONITOR REMOVED AND RETURNED TO [facility] IN TELEMETRY. AWAITING PT TO GET BELONGINGS TOGETHER. WILL D/C VIA WHEELCHAIR.
--- NOTE | 2017-05-24 16:21 | NUR ---
PT D/C VIA WHEELCHAIR.
== END 2017-05-24 16:22 | disposition home or self-care (01) | DRG 673 ==
LOC: D.M2 13:17
PROVIDERS: Surgery; ADMIT Internal Medicine
PROC: 05HM33Z Insertion of Infusion Device into Right Internal Jugular Vein, Percutaneous Approach (ICD-10-PCS; 2017-05-19)
PROC: B5131ZA Fluoroscopy of Right Jugular Veins using Low Osmolar Contrast, Guidance (ICD-10-PCS; 2017-05-19)
PROC: B543ZZA Ultrasonography of Right Jugular Veins, Guidance (ICD-10-PCS; 2017-05-19)
PROC: 5A1D60Z (ICD-10-PCS; 2017-05-19)
PROC: 03180KF Bypass Left Brachial Artery to Lower Arm Vein with Nonautologous Tissue Substitute, Open Approach (ICD-10-PCS; principal; 2017-05-19 08:00)
DX: I12.0 Hypertensive chronic kidney disease with stage 5 chronic kidney disease or end stage renal disease (principal); N18.6 End stage renal disease; E11.21 Type 2 diabetes mellitus with diabetic nephropathy; E11.22 Type 2 diabetes mellitus with diabetic chronic kidney disease; E11.40 Type 2 diabetes mellitus with diabetic neuropathy, unspecified

== ENCOUNTER 2018-01-29 05:20 | Day surgery (SDC) | payer BC, MEDICARE ==
[2018-01-28 15:40] LABS: BASOPHILS 0.3 % (0-2); EOSINOPHILS 1.6 % (0-7); HEMATOCRIT 30.6 % (36.0-48.0); HEMOGLOBIN 9.7 g/dL (12-16); IMMATURE GRANULOCYTES 0.2 % (0-5); LYMPHOCYTES 18.8 % (15-50); MCH 27.7 pg (26.0-34.0); MCHC 31.7 g/dL (31.0-37.0); MCV 87.4 fL (80.0-100.0); MEAN PLATELET VOLUME 8.4 fL (7.4-10.4); MONOCYTES 11.5 % (2-11); NEUTROPHILS 67.6 % (40-80); PLATELET COUNT 242 10x3/uL (130-400); RDW 15.6 % (11.5-14.5); WBC 8.7 10x3/uL (4.8-10.8)
[2018-01-28 15:53] LABS: APTT 34.2 SECONDS (22.8-39.4); INR 1.19 (0.85-1.17); PROTIME 14.7 SECONDS (11.6-15.0)
[2018-01-28 16:36] LABS: ANION GAP 13.7 mmol/L (8-16); CALCIUM 8.3 mg/dL (8.5-10.1); CARBON DIOXIDE 29.1 mmol/L (21.0-32.0); POTASSIUM - SERUM 3.8 mmol/L (3.5-5.1)
[~2018-01-29] VITALS: Ht 160 cm; Wt 94.3 kg
--- NOTE | ~2018-01-29 | OP ---
PATIENT NAME: KISHA NIELSEN MEDICAL RECORD: [id number] :[birth year] LOCATION:[facility] ADMISSION DATE: SURGEON: DAYLIN CARRANZA MD DATE OF OPERATION: 01/29/2018 PREOPERATIVE DIAGNOSES: 1. End-stage renal disease and dependence on renal dialysis. 2. Minimally tender firm 2-cm diameter subcutaneous nodule over the right lateral chest wall just above the costal margin. POSTOPERATIVE DIAGNOSES: 1. End-stage renal disease and dependence on renal dialysis. 2. Minimally tender firm 2-cm diameter subcutaneous nodule over the right lateral chest wall just above the costal margin. OPERATION PERFORMED: Laparoscopic implantation of peritoneal dialysis catheter with omentectomy and attachment to subcutaneous or presternal extension and then an additional portion of the operation, excision of subcutaneous lesion from the right lateral chest wall. SURGEON: Daylin Carranza MD REFERRING PHYSICIAN: Pee Coles MD PREOPERATIVE NOTE: Ms. Nielsen is a very nice 62-year-old -[place] female from [place]. She has end-stage renal disease and is on chronic hemodialysis. Her dialysis access graft has been problematic and required several interventions, and she is hoping that she can change to peritoneal dialysis. She does have an obese, protuberant abdomen and I recommended laparoscopic PD catheter placement to include a subcutaneous tubing extension to place a more remote exit site in the upper abdomen or lower chest. The patient brought to my attention a subcutaneous nodule, which is quite firm, somewhat irregular in its margins, and located in the right lateral chest wall near the costal margin, is to be excised today also. DESCRIPTION OF PROCEDURE: Under general endotracheal anesthesia, the patient was prepped and draped in a sterile manner. I decided that I would place her catheter on the right side using a Merit PD catheter system. I used templates to sabina the sites for incision. The first template measured the distance between the top of the pubic symphysis and the site in the right rectus sheath where the new catheter should enter. A vertical incision was made there to facilitate placement of the catheter. Using the stencils, I then identified where I prefer the exit site, which was in the right upper quadrant below her subcostal cholecystectomy scar and I marked sites for incision there and made an incision about an inch and a half in length. Both incisions were carried down to the rectus sheath. Her tissues were noted to be extremely hard and tough and difficult to cut and Bovie through and difficult to bluntly dissect as well. I created a tunnel between the 2 incisions in preparation for a catheter. I then inserted a 5-mm XCEL Optiview port with a 5-mm 30-degree angled scope within it. This was inserted through a stab wound in the left upper quadrant. Pneumoperitoneum was established with carbon dioxide. A second 5-mm port was placed in the left lower quadrant. On viewing the abdomen, I noted that there was a relatively thin, but quite mobile omental apron down in the pelvis and I thought an omentopexy would be advisable. There was a great deal of omentum adherent in the right upper quadrant in the region of the old cholecystectomy OPERATIVE REPORT [id number] KISHA NIELSEN subcostal incision, but the omentum descending from the left side was still quite significant. At this point, I went ahead and did the omentopexy. I lifted the omentum carefully from the pelvis and left lower quadrant and elevated it upward onto the anterior abdominal wall in the hypochondrium. I made a small incision there in the skin and used a Kavin-Anjel suture passer to insert a 0 Vicryl through the anterior abdominal wall and pass through a lappet of omentum. Then, I picked up the stitch on other side and pulled it back through the abdominal wall at a slightly different spot and tied the suture pulling the omentum up to the abdominal wall thereby accomplishing the omentopexy. The colon and other viscera were safely visualized. I then inserted a needle and guidewire through the anterior rectus sheath through the lower incision. I tunneled the guidewire in the substance of the rectus muscle as far inferiorly as possible before popping through into the peritoneal space. I passed a dilator peel-away sheath over the guidewire and then took the coiled Merit catheter and inserted it through the peel-away sheath as it was removed. The coiled catheter reached down just behind the pubic symphysis in the pelvis. I buried the Dacron felt cuff beneath the anterior rectus sheath and the substance of the rectus muscle and there placed a pursestring 0 Vicryl suture to snug the rectus sheath up around the catheter. I made the incision in the upper abdomen and I then created a subcutaneous tunnel just anterior to the rectus sheath. I then desufflated the abdomen and measured the distance from one incision to the other through that subcutaneous tunnel just anterior to the rectus sheath and it was 18 cm from the marker below to where I planned to position the marker above. Both catheters, the intra-abdominal catheter and the subcutaneous extension catheter were both shortened and then attached to each other end-to-end with a titanium connector. This was also secured with 2-0 Prolene ties. The catheter was then pulled through the subcutaneous tunnel up to the upper incision, where it came out just right. It was then placed in upwards and laterally directed subcutaneous tunnel to the right and then inferiorly and out through the skin. This tunnel was very tight around the catheter and the lower portion of the catheter was definitely directed inferiorly as desired. The superficial Dacron felt cuff was less than a couple of centimeters up in the subcutaneous tissue above the skin exit site. The catheter was then accessed and flushed easily with about 200 cc of saline. It was then heparin locked, clamped and capped. The wounds were irrigated with Ancef-gentamicin solution and infiltrated with 0.25% Marcaine without epinephrine. The abdomen was then reinsufflated and another look obtained, which revealed no injury to any of the adjacent organs or other complications visible. The instrumentation and ports were removed. Those incisions were then infiltrated with 0.25% Marcaine and skin closure performed with interrupted inverted 3-0 Vicryl and Dermabond glue. All the incisions were sealed with glue and dressed with Maxorb Ag, Tegaderm, and Cavilon skin prep. The catheter was further fixed to the skin at the exit site with Mastisol and quarter-inch Steri-Strips. A Biopatch chlorhexidine ring was applied and over that a Tegaderm and then the catheter was coiled and all were covered with a 4 x 4 Medipore dressing. Next, the subcutaneous mass was palpated. I made a transverse incision over it and noted it to be fixed to the overlying skin like an inclusion cyst. I carefully the mass from the overlying skin and then dissected it from the surrounding fatty tissue. There was no real good border there. The tissue was ecchymotic and inflamed around the lesion. I did not encounter any fluid or pus. Bleeding was controlled with very discrete use of electrocautery. The wound was infiltrated with Marcaine with epinephrine and closed with interrupted OPERATIVE REPORT [id number] KISHA NIELSEN inverted 3-0 Vicryl and then running intracuticular 4-0 Monocryl and Dermabond glue. That site was then also dressed with Maxorb Ag, Tegaderm, and Cavilon skin prep. At that point, the patient was awakened from her anesthetic and extubated and taken to the recovery room. In the recovery room, she was very stable, awake, and comfortable. The accounting analyst reported to me that when she was moved from the table, she was noted to have passed a small bloody gelatinous stool. When the patient was alert enough, I inquired she had been passing any bloody stools and she said yes she had. She just had colonoscopy yesterday and says she was told to expect that she would be passing some bloody mucinous stools as indeed she had been. This placed my mind at rest, though I did order an abdominal x-ray with a radiologic marker at the site of the omentopexy on the abdominal wall. I think it is very unlikely that there was any colonic or intestinal injury during the entire procedure. The patient will be discharged later today assuming her abdomen remains nontender and nondistended. She should be able to go home and resume her renal diet and all of her home medications, though I would ask her not to resume Plavix before probably Sunday this weekend. She has been on Lovenox since having stopped the Plavix and she should continue that daily until Sunday morning and then discontinue it. She is to see [facility] peritoneal dialysis nurse specialist later this week or next week to have her catheter flushed and the dressing changed, and she is to see me in my office next week. I plan to remove all the rest of her dressings at that time. Today, blood loss was about 10 cc and unreplaced. All sponges, instruments, and needles were accounted for. No drain was used. The surgical specimens consisted of the excised subcutaneous lesion from the right lateral chest wall. TRANSINT:[id number] Voice Confirmation ID: [id number] DOCUMENT ID: [id number] DAYLIN CARRANZA MD at 2012 CC: PEE COLES [id number] DICTATION DATE: 01/29/18 1432 TRAFFIC WORKFORCE REPRESENTATIVE: 01/29/18 1615 [facility] 01/29/[address] [place] [address]
[~2018-01-29 05:20] MED LIST changes: +ASPIRIN EC81 M1 PO; +BD ULTRA-FINE PEN ND; +CALAN SR240 MG PO; +CALCIPOTRIENE60 ML TP; +GLIPIZIDE10 MG PO; +LOVENOX40 MG/0.4 SC; +POTASSIUM CHLORIDE; +TOUJEO SOL300 UNIT/1 SC; +XARELTO15 MG PO
[2018-01-29 06:47] VITALS: Ht 160 cm; Wt 94.3 kg
[2018-01-29] MEDS ORDERED: HYDROCODON-ACE1 EAC7 PO (14:01)
== END 2018-01-29 16:25 | disposition home or self-care (01) ==
LOC: D.OPS 05:20 → D.PAN 08:00 → D.OPS 08:00
PROVIDERS: Anesthesiology
DX: E11.22 Type 2 diabetes mellitus with diabetic chronic kidney disease (principal); I12.0 Hypertensive chronic kidney disease with stage 5 chronic kidney disease or end stage renal disease; N18.6 End stage renal disease; Z99.2 Dependence on renal dialysis; Z01.812 Encounter for preprocedural laboratory examination

== ENCOUNTER → 2018-03-11 13:35 | Outpatient (CLI) | payer BC, MEDICARE ==
[2018-01-29 06:47] VITALS: BMI 36.9
--- NOTE | ~2018-03-11 | HEMODYNAMI ---
PATIENT:KISHA NIELSEN MEDICAL RECORD: [id number] : 59 LOCATION:SU[facility]IR ADMISSION DATE: 03/11/18 Generatedon:03/11/201815:24 Patient name: KISHA NIELSEN Patient #: [id number] SSN: DO B: 1955 Date of study: 03/11/2018 Page: Of Hemodynamic Procedure Report Patient Data Patient Demographics Procedure consent was obtained First Name: KISHA Gender: Female Last Name: GIA : 1955 Patient #: [id number] Age: 62 year(s) Race: Black Additional ID: [id number] Contact details Address: [facility] [address] State: [place] City: [place] Zip code: [address] Admission Admission Data Admission Date: 03/11/2018 Admission Time: 13:35 Procedure Procedure Types Cath Procedure Peripheral Cath Diagnostic Procedure Cath Peripheral Miscellaneous Peritoneogram Procedure Description Procedure Date Procedure Date: 03/11/2018 Procedure Start Time: 15:18 Procedure Staff Name Function Jean Santiago MD Performing Physician Sharri Rojas RT Senior Partner Sharri Rojas RT Monitor Elvira Corado RN Nurse Scotty Weber RT Scrub Procedure Data Cath Procedure Fluoroscopy Diagnostic fluoroscopy Total fluoroscopy Time: 0 time: 0 min min Diagnostic fluoroscopy Total fluoroscopy dose: 29 dose: 29 mGy mGy Contrast Material Contrast Material Type Amount (ml) Isovue 300 15 Hemodynamics Rest Pre Cath Intra NCS Post Cath Procedure Log Time Note 15:10:50 Time tracking: Regular hours (M-F 7:00 - 5:00) 15:11:45 Signed procedure consent form obtained from patient. 15:11:50 Family in waiting room. 15:12:01 Use device set IR Diagnostic 15:12:04 Sterile Angiographic Pack opened to sterile field. 15:12:05 Bag Decanter (2002) opened to sterile field. 15:12:35 - 15:15:34 Physician arrived 15:17:46 --------ALL STOP TIME OUT------ 15:17:47 Final Timeout: patient, procedure, and site verified with staff and physician. All members of the team are in agreement. 15:18:00 Procedure started. 15:18:00 Full Disclosure recording started 15:19:14 [facility] .035 260 glide wire ([id number]) opened to sterile field. 15:21:59 pd cath repositioned and functioning properly 15:22:12 Tegaderm 6 x 8 (1628) opened to sterile field. 15:22:21 Procedure ended.(Physican Out) 15:22:37 Contrast amount:Isovue 300 15ml. 15:22:42 Fluoroscopy time 00.00 minutes. 15:22:47 Fluoroscopy dose: 29 mGy 15:22:47 Flurop Dose total: 29 15:23:21 Procedure and supply charges have been captured, reviewed, submitted an d are correct. Device Usage Item Name Manufacture Quantity Catalog Hospital Part Current Minimal Lot# / Number Charge Number Stock Stock Serial# Code Sterile Cardinal 1 [id number] 5 Angiographic Health Pack Bag Decanter Microtek 1 [id number] 5 () [employer] Inc[employer] [facility] 1 [id number] [id number] 5 [id number] .035 260 glide wire ([id number]) Tegaderm 6 x 3M 1 1628 [id number] 5 8 (1628) Signature Audit [place] Stage Time Signature Unsigned Intra-Procedure 03/11/2018 Sharri Rojas 3:24:33 PM RT(R) Signatures Monitor : Sharri Rojas RT Signature : Date : Time : [facility] [address] [id number]
[~2018-03-11 13:35] MED LIST changes: +HYDROCODON-ACE1 EAC7 PO
== END | disposition home or self-care (01) ==
LOC: D.RAD 13:35
DX: N18.6 End stage renal disease (principal); T82.41XA Breakdown (mechanical) of vascular dialysis catheter, initial encounter

== ENCOUNTER 2018-04-12 06:07 | Day surgery (SDC) | payer BC, MEDICARE ==
[~2018-04-12] VITALS: Ht 162.6 cm; Wt 92.3 kg
[2018-04-12 06:34] LABS: BASOPHILS 0.4 % (0-2); EOSINOPHILS 2.6 % (0-7); HEMATOCRIT 33.2 % (36.0-48.0); HEMOGLOBIN 10.4 g/dL (12-16); IMMATURE GRANULOCYTES 0.2 % (0-5); LYMPHOCYTES 21.6 % (15-50); MCH 27.1 pg (26.0-34.0); MCHC 31.3 g/dL (31.0-37.0); MCV 86.5 fL (80.0-100.0); MEAN PLATELET VOLUME 8.6 fL (7.4-10.4); MONOCYTES 12.6 % (2-11); NEUTROPHILS 62.6 % (40-80); PLATELET COUNT 220 10x3/uL (130-400); RBC 3.84 10x6/uL (4.00-5.40); RDW 15.5 % (11.5-14.5); WBC 8.2 10x3/uL (4.8-10.8)
[2018-04-12 06:36] LABS: CALCIUM 8.9 mg/dL (8.5-10.1); CARBON DIOXIDE 28.2 mmol/L (21.0-32.0); CREATININE - SERUM 5.5 mg/dL (0.6-1.3); POTASSIUM - SERUM 4.2 mmol/L (3.5-5.1)
[2018-04-12 06:38] LABS: APTT 41.7 SECONDS (22.8-39.4); INR 3.18 (0.85-1.17); PROTIME 31.9 SECONDS (11.6-15.0)
[2018-04-12] MEDS ORDERED: FUROSEMIDE40 MG PO (07:33)
[2018-04-12] MEDS ORDERED: OMEPRAZOLE CAP 20M (07:33)
[2018-04-12] MEDS ORDERED: GLYCOLAX527 GM PO (07:34)
[2018-04-12 07:35] VITALS: BP 120/68; Ht 162.6 cm; Wt 92.3 kg
== END 2018-04-12 09:50 | disposition home or self-care (01) ==
LOC: D.OPS 06:07
PROVIDERS: Surgery
DX: N18.6 End stage renal disease (principal); Z53.9 Procedure and treatment not carried out, unspecified reason

== ENCOUNTER 2018-05-14 08:30 | Day surgery (SDC) | payer BC, MEDICARE ==
[~2018-05-14] VITALS: Ht 162.6 cm; Wt 92.1 kg
--- NOTE | ~2018-05-14 | OP ---
PATIENT NAME: KISHA NIELSEN MEDICAL RECORD: [id number] :[birth year] LOCATION:D.OPS ADMISSION DATE: SURGEON: DAYLIN CARRANZA MD DATE OF OPERATION: 05/14/2018 She was an outpatient. Referred by Dr. Pee Coles. PREOPERATIVE DIAGNOSES: Mechanical complication or malfunction of peritoneal dialysis catheter, also end-stage renal disease and dependence on renal hemodialysis on renal dialysis. POSTOPERATIVE DIAGNOSIS: ANESTHESIA: General endotracheal per CERTIFIED PHARMACY TECH. REFERRING PHYSICIAN: Pee Coles MD SURGEON: Daylin Carranza MD PREOPERATIVE NOTE: Ms. Nielsen is a very nice 62-year-old -Cypriot female with end-stage renal disease who had a peritoneal dialysis catheter laparoscopically implanted earlier this year. It had functioned well until just recently when it stopped draining freely. She is returned to the operating room now outside of her global period to have a repeat laparoscopy and revision. DESCRIPTION OF THE PROCEDURE: Under general endotracheal anesthesia, the patient was placed in supine position, prepped and draped in sterile manner. The abdomen was entered through a small incision in the left upper quadrant using a 5 mm 0-degree laparoscope within a 0-degree 5-mm Optiview Xcel port. Pneumoperitoneum was established and the patient was placed in Trendelenburg position. We immediately found that the coiled dialysis catheter was entrapped in adhesions to the fimbriated structures of the right fallopian tube. I introduced instruments through 2 other 5-mm ports and continued to perform the operation using the 0-degree 5-mm diameter port. No other abnormalities were identified. I the fallopian tube from the coiled catheter and then flushed and aspirated the catheter and demonstrated that it functioned well. The fallopian tube was freed from the few other adhesions, which were present and it was then removed and divided with a Harmonic scalpel leaving the ovary and a portion of the tube present. The excised salpinx was removed then along with the instrumentation through one of the 5-mm port sites. Irrigation with saline was performed and there was no bleeding. Again, further inspection revealed no sign of injury to any surrounding structures. The instrumentation was removed and the carbon dioxide pneumoperitoneum allowed to escape. The catheter was heparin locked and the incision sites infiltrated with 0.25% Marcaine and closed with interrupted inverted 3-0 Vicryl and then Dermabond glue. The sites were dressed with Maxorb Ag, Tegaderm, and Cavilon skin prep. The patient was awakened from her anesthetic and in stable condition taken to the recovery room. OPERATIVE REPORT [id number] KISHA NIELSEN PLAN: The patient will go home today. She can resume dialysis exchanges as per her [facility] peritoneal nurse specialist and Dr. Pee Coles. Note, the patient is chronically anticoagulated with Xarelto, which she had discontinued for a few days prior to this procedure. She may resume her Xarelto on Sunday of this week. She will come back to see me if there are any problems. She is given no new prescriptions. She is to continue her usual renal diet and home medications, etc. TRANSINT:[id number] Voice Confirmation ID: [id number] DOCUMENT ID: [id number] DAYLIN CARRANZA MD at 2205 CC: PEE COLES [id number] DICTATION DATE: 05/27/181904 TRIM CARPENTER: 05/28/18 0241 [facility] 05/14/18 [address] [place] [address]
[~2018-05-14 08:30] MED LIST changes: +FUROSEMIDE40 MG PO; +GLYCOLAX527 GM PO; +OMEPRAZOLE CAP 20M
[2018-05-14 08:52] LABS: BASOPHILS 0.4 % (0-2); HEMATOCRIT 34.2 % (36.0-48.0); HEMOGLOBIN 10.8 g/dL (12-16); IMMATURE GRANULOCYTES 0.1 % (0-5); LYMPHOCYTES 21.5 % (15-50); MCH 26.7 pg (26.0-34.0); MCHC 31.6 g/dL (31.0-37.0); MCV 84.4 fL (80.0-100.0); MEAN PLATELET VOLUME 8.6 fL (7.4-10.4); RBC 4.05 10x6/uL (4.00-5.40); RDW 15.4 % (11.5-14.5); WBC 8.4 10x3/uL (4.8-10.8)
[2018-05-14 08:54] LABS: PLATELET COUNT 268 10x3/uL (130-400)
[2018-05-14 08:58] LABS: ANION GAP 12.4 mmol/L (8-16); APTT 29.7 SECONDS (22.8-39.4); CALCIUM 8.6 mg/dL (8.5-10.1); CARBON DIOXIDE 31.3 mmol/L (21.0-32.0); INR 1.1 (0.85-1.17); POTASSIUM - SERUM 4.7 mmol/L (3.5-5.1); PROTIME 13.8 SECONDS (11.6-15.0)
[2018-05-14 09:31] VITALS: BP 150/82; Ht 162.6 cm; Wt 92.1 kg
[2018-05-14] MEDS ORDERED: ULTRAM50 MG PO (17:22)
== END 2018-05-14 19:45 | disposition home or self-care (01) ==
LOC: D.OPS 08:30
PROVIDERS: Surgery
DX: T85.691A Other mechanical complication of intraperitoneal dialysis catheter, initial encounter (principal); K66.0 Peritoneal adhesions (postprocedural) (postinfection); N18.6 End stage renal disease; Z99.2 Dependence on renal dialysis; Z01.812 Encounter for preprocedural laboratory examination

== ENCOUNTER 2019-07-04 07:16 | Day surgery (SDC) | payer BC, MEDICARE, MEDICAID ==
[~2019-07-04] VITALS: Ht 162.6 cm; Wt 93.4 kg
[~2019-07-04 07:16] MED LIST changes: +ULTRAM50 MG PO
[2019-07-04 07:54] LABS: BASOPHILS 0.4 % (0-2); EOSINOPHILS 1.7 % (0-7); HEMATOCRIT 33.7 % (36.0-48.0); HEMOGLOBIN 11.4 g/dL (12-16); IMMATURE GRANULOCYTES 1.9 % (0-5); LYMPHOCYTES 8.7 % (15-50); MCH 28.1 pg (26.0-34.0); MCHC 33.8 g/dL (31.0-37.0); MCV 83.2 fL (80.0-100.0); MEAN PLATELET VOLUME 9.1 fL (7.4-10.4); MONOCYTES 12.7 % (2-11); NEUTROPHILS 74.6 % (40-80); PLATELET COUNT 253 10x3/uL (130-400); RBC 4.05 10x6/uL (4.00-5.40); RDW 16.4 % (11.5-14.5); WBC 11.2 10x3/uL (4.8-10.8)
[2019-07-04 08:01] LABS: INR 1.18 (0.85-1.17); PROTIME 14.5 SECONDS (11.6-15.0)
[2019-07-04 08:11] LABS: ANION GAP 8.4 mmol/L (8-16); CARBON DIOXIDE 31.3 mmol/L (21.0-32.0); CREATININE - SERUM 4.2 mg/dL (0.6-1.3); POTASSIUM - SERUM 3.7 mmol/L (3.5-5.1)
[2019-07-04 08:16] LABS: CALCIUM 6.8 mg/dL (8.5-10.1)
--- NOTE | 2019-07-04 08:18 | NUR ---
MELINDA MAO APN PAGED REGARDING CRITICAL LOW CALCIUM LEVEL
--- NOTE | 2019-07-04 08:30 | NUR ---
MELINDA MAO SENIOR APPLICATIONS ARCHITECT RETURNS CALL REGARDING LOW CALCIUM LEVEL, ORDER RECEIVED FOR CALCIUM GLUCONATE 1 AMP IV
[2019-07-04] MEDS ORDERED: ASPIRIN325 MG PO (08:59)
[2019-07-04] MEDS ORDERED: OMEPRAZOLE20 M1 PO (09:00)
[2019-07-04] MEDS ORDERED: TOPROL XL50 MG PO (09:01)
[2019-07-04] MEDS ORDERED: LISINOPRIL20 MG PO (09:01)
[2019-07-04] MEDS ORDERED: POT CHLORIDE TAB 8ME (09:02)
[2019-07-04] MEDS ORDERED: ZYLOPRIM100 MG PO (09:03)
[2019-07-04 09:04] VITALS: Ht 162.6 cm; Wt 93.4 kg
--- NOTE | 2019-07-04 10:08 | NUR ---
Patients infusion is complete at 10AM. MV
--- NOTE | 2019-07-04 12:24 | NUR ---
PD CATH PREPPED INTO FIELD/ REMOVED PER DR CARRANZA
--- NOTE | 2019-07-04 12:29 | NUR ---
OLD PD CATHETER DISPOSED OF PER DR MCKEON REQUEST-SH
[2019-07-04] MEDS ORDERED: HYDROCODON-ACE1 EAC7 PO (12:50)
--- NOTE | 2019-07-04 13:27 | NUR ---
PATIENT HAS A FULL LIQUID TRAY AND IT TOLERATING IT WITH NO N/V. MV
--- NOTE | 2019-07-11 10:07 | OP ---
PATIENT NAME: KISHA NIELSEN MEDICAL RECORD: [id number] :[birth year] LOCATION:D.OPS ADMISSION DATE: SURGEON: DAYLIN CARRANZA MD DATE OF OPERATION: 07/04/2019 REFERRING PHYSICIAN: Pee Coles MD PREOPERATIVE DIAGNOSIS: Infected peritoneal dialysis catheter. POSTOPERATIVE DIAGNOSIS: Infected peritoneal dialysis catheter. OPERATION PERFORMED: Removal. SURGEON: Daylin Carranza MD ANESTHESIA: General with LMA per HOGSHEAD LINER. PREOPERATIVE NOTE: Ms. Nielsen is a 63-year-old -Congolese female with end-stage renal disease and dependence on dialysis, who has failed peritoneal dialysis due to recurring infections and I have been asked to remove the catheter. This is a Merit catheter with a subcutaneous extension to an exit site high in the right upper quadrant. DESCRIPTION OF PROCEDURE: Under anesthesia in supine position, the patient was prepped and draped in a sterile manner. An incision was made over the palpable catheter just beneath the costal margin, and the catheter and the superficial cuff were exposed and dissected from the surrounding tissues. The catheter was transected external to the exit site and the catheter then pulled through and gentle traction applied, which demonstrated a solid fixation of the rest of the catheter. I then opened the incision, which was below and to the right of the umbilicus and exposed the catheter and with electrocautery, dissected the deep cuff from its position within the rectus sheath. The catheter was then easily removed by traction. The abdominal wall defect there was closed with a few interrupted [id number] 0 Vicryl sutures. With gentle traction, the entire catheter was freed and both segments with the titanium connector were then removed intact. I saw no evidence of any leak or any other tube malfunction or problem with the junction at the connector. The catheter was discarded. The wounds were irrigated with antibiotic solution and infiltrated with 0.25% Marcaine and closed with interrupted inverted 3-0 Vicryl and running intracuticular 4-0 Stratafix. The incisions were sealed with Dermabond glue and dressed with Maxorb Ag, Tegaderm, and Cavilon skin prep. The patient was then awakened and taken to the recovery room. There was minimal blood loss during the procedure, perhaps 5 cc. Sponges, instruments, and needles were accounted for. No drain was used and no surgical specimen submitted. I plan for the patient to go home today and follow up with me in my office in about 2 weeks. I did give her a prescription for 19 tablets of [place] 5/325 to take 1 or 2 p.o. q.4 hours p.r.n. for pain. TRANSINT:[id number] Voice Confirmation ID: [id number] DOCUMENT ID: [id number] OPERATIVE REPORT [id number] KISHA NIELSEN JAMES MD at 1007 CC: PEE COLES [id number] DICTATION DATE: 07/09/19 155 ENVIRONMENTAL ENGINEERING MANAGER: 07/09/19 1827 [facility] 07/04/19 [address] [place] [address]
== END 2019-07-04 14:45 | disposition home or self-care (01) ==
LOC: D.OPS 07:16
PROVIDERS: Surgery; ATTEND Internal Medicine Nephrology
DX: T85.71XA Infection and inflammatory reaction due to peritoneal dialysis catheter, initial encounter (principal); Y83.9 Surgical procedure, unspecified as the cause of abnormal reaction of the patient, or of later complication, without mention of misadventure at the time of the procedure; E11.22 Type 2 diabetes mellitus with diabetic chronic kidney disease; N18.6 End stage renal disease; Z99.2 Dependence on renal dialysis

== ENCOUNTER 2020-04-16 17:22 | Inpatient (IN) | payer BC, MEDICARE, MEDICAID ==
[~2020-04-16] VITALS: Ht 162.6 cm; Wt 94.9 kg
[~2020-04-16 17:22] MED LIST changes: +ASPIRIN325 MG PO; +LISINOPRIL20 MG PO; +OMEPRAZOLE20 M1 PO; +POT CHLORIDE TAB 8ME; +TOPROL XL50 MG PO
[2020-04-16 18:18] LABS: BASOPHILS 0.2 % (0-2); EOSINOPHILS 0 % (0-7); HEMATOCRIT 32.5 % (36.0-48.0); HEMOGLOBIN 10.6 g/dL (12-16); IMMATURE GRANULOCYTES 0.3 % (0-5); LYMPHOCYTES 2.8 % (15-50); MCH 28.8 pg (26.0-34.0); MCHC 32.6 g/dL (31.0-37.0); MCV 88.3 fL (80.0-100.0); MEAN PLATELET VOLUME 10.7 fL (7.4-10.4); MONOCYTES 0.6 % (2-11); NEUTROPHILS 96.1 % (40-80); RBC 3.68 10x6/uL (4.00-5.40); RDW 15.5 % (11.5-14.5); WBC 11.5 10x3/uL (4.8-10.8)
[2020-04-16 18:28] LABS: PLATELET COUNT 189 10x3/uL (130-400)
--- NOTE | 2020-04-16 19:46 | NUR ---
CALL TO ICU. NURSE BUSY WILL CALL BACK FOR REPORT.
--- NOTE | 2020-04-16 20:25 | NUR ---
PT ARRIVED VIA STRETHER FROM ER IN STABLE CONDITION. IS A&OX4. PERFORMED ADMISSION ASSESSMENT AT THIS TIME AND WILL DOC IN FLOW SHEET.
--- NOTE | 2020-04-16 20:26 | NUR ---
REPORT CALLED TO [facility] ICU. LAB NOTIFIED LAB DRAW IS STAT.
[2020-04-16 20:57] LABS: ANION GAP 21.4 mmol/L (8-16); CALCIUM 7.8 mg/dL (8.5-10.1); CARBON DIOXIDE 22.5 mmol/L (21.0-32.0); CREATININE - SERUM 17.9 mg/dL (0.6-1.3); POTASSIUM - SERUM 5.9 mmol/L (3.5-5.1)
[2020-04-16 21:00] VITALS: BP 142/102
[2020-04-16 21:03] LABS: ALBUMIN 2.7 g/dL (3.4-5.0); BILIRUBIN - TOTAL 0.6 mg/dL (0.2-1.3); PROTEIN - SERUM 7.6 g/dL (6.4-8.2)
--- NOTE | 2020-04-16 21:07 | NUR ---
PT IS JUST NOW STARTING DIAYLSIS AND PER DIAYLSIS NURSE SHE SAYS THEY WILL GIVE THE VANC WHILE DOING DIAYSIS BUT THEY WOULD WAIT FOR ME TO GIVE THE ZOYCIN UNTILL AFTER.
[2020-04-16 21:50] LABS: ERYTHROCYTE SEDIMENTATION RATE 58 mm/hr (0-30)
[2020-04-16 22:00] VITALS: BP 130/76
--- NOTE | 2020-04-16 23:11 | NUR ---
PT IS AWAKE A&OX4 STILL GITTING DIALYSIS AT THIS TIME. VSS. PT VOICED"I NEED TO BE CLEANED UP AGAIN". PT HAS GOTTEN KAYEXALATE IN ER. PT HAD LARGE LIQUID BROWN BM IN BED. SHE VOICED"IT JUST COMES OUT WITH NO WARNING". CLEANED HER WAND DID FULL BED CHANGE. PT ROLLED SELF AND TOLERATED WELL. STILL WAITING FOR DIAYSIS TO GET DONE TO GIVE ANTIBITOICS THAT ARE ORDERED. RE-ASSESSMENT ALSO DONE AT THIS TIME AND WILL DOC IN FLOW SHEET. BED IS LEFT LOW,SIDE RAISLX2,CALL LIGTH WITHIN REACH. WILL CONINTUE TO MONITOR
[2020-04-16] MEDS ORDERED: HYDRALAZINE20 MG/ML PO (23:37)
[2020-04-16 23:38] VITALS: BP 128/68; BMI 35.4
[2020-04-17] VITALS (16 sets, daily range): BP systolic 105–190; BP diastolic 60–107; Ht 162.6 cm; Wt 94.9 kg
--- NOTE | 2020-04-17 00:42 | NUR ---
DIALYSIS IS NOW DONE. VSS. PT IS RESTING WITH EYES CLOSED. BED IS LOW,SIDE RAISLX2,CALL LIGTH WITHIN REACH. BED ALARM IS ON
--- NOTE | 2020-04-17 00:47 | NUR ---
PT USED CALL LIGHT TO ASK"CAN I HAVE ANOTHER PAIN PILL". IT IS TIME TO GIVE ONE. DOCUMENTED ON DEC. PT HAS CHRONIC PAIN IN HER LEFT FOOT. VSS. NO OTHER NEEDS OR C/O VOICED. BED IS LEFT LOW,SIDE RAISLX2,CALL LIGHT WITHIN REACH. WILL CONINTUE TO MONITOR
--- NOTE | 2020-04-17 00:58 | NUR ---
DIAYSIS IS LEAVING AT THIS TIME.
--- NOTE | 2020-04-17 01:42 | NUR ---
PT USED CALL LIGHT AND VOICED"I THINK I POOPED AGAIN". WHEN CHECKING SHE HAD ANOTHER MEDICUM LIQUID BROWN BM. HELPED CLEAN HER UP BY HER ROLLING BACK AND FORTH AND CHANGED MOISTURE WICKING CHUCKS PADS. VSS. SHE VOICE"MY PAIN HAS DECREASED SOME". HELPED HER COVER UP AND BED LEFT LOW,SIDE RAISLX2,CALL LGIHT WITHIN REACH. WILL CONINTUE TO MONITOR
--- NOTE | 2020-04-17 03:07 | NUR ---
PT IS RESTING IN BED WITH EYES CLOSED. AWAKES EASILY. VSS. RE-ASSESSMENT DONE AND WILL DOC IN FLOW SHEET. PT VOICES NO NEEDS OR C/O AT THIS TIME. BED IS LOW,SIDE RAISLX2,CALL LIGHT WITHIN REACH. WILL CONITNUE TO MONITOR
--- NOTE | 2020-04-17 04:45 | NUR ---
PT IS RESTING IN BED WITH EYES CLOSED. AWAKES EASILY. WHEN ASKED IF SHE HAS ANY PAIN SHE VOICES "O YES, MY FOOT IS HURTING". WILL PROVIDE PT WITH PAIN MED ORDEREED PRN FOR PAIN. VSS. NO OTHER NEEDS OR C/O VOICED. BED IS LOW,SIDE RAISLX2,CALL LIGHT WITHIN REACH. BED IS LOW,SIDE RAISLX2,CALL LIGHT WIHTIN REACH. BED ALARM IS ON. WILL CONINTUE TO MONITOR
--- NOTE | 2020-04-17 06:15 | NUR ---
PT IS RESTING IN BED WITH EYES CLOSED. VSS. BED IS LOW,SIDE RAISLX2,CALL LIGHT WITHIN REACH. BED ALARM IS ON
[2020-04-17 06:39] LABS: BASOPHILS 0.2 % (0-2); EOSINOPHILS 1.2 % (0-7); HEMATOCRIT 31.2 % (36.0-48.0); HEMOGLOBIN 10.2 g/dL (12-16); IMMATURE GRANULOCYTES 0.3 % (0-5); LYMPHOCYTES 6.5 % (15-50); MCH 28.8 pg (26.0-34.0); MCHC 32.7 g/dL (31.0-37.0); MCV 88.1 fL (80.0-100.0); MEAN PLATELET VOLUME 9.1 fL (7.4-10.4); MONOCYTES 12.8 % (2-11); PLATELET COUNT 160 10x3/uL (130-400); RBC 3.54 10x6/uL (4.00-5.40); RDW 15.3 % (11.5-14.5); WBC 9.9 10x3/uL (4.8-10.8)
[2020-04-17 06:58] LABS: ALBUMIN 2.5 g/dL (3.4-5.0); ANION GAP 15.6 mmol/L (8-16); BILIRUBIN - TOTAL 0.52 mg/dL (0.2-1.3); CALCIUM 7.7 mg/dL (8.5-10.1); PROTEIN - SERUM 7.3 g/dL (6.4-8.2)
[2020-04-17 06:59] LABS: CREATININE - SERUM 10.7 mg/dL (0.6-1.3); POTASSIUM - SERUM 4.6 mmol/L (3.5-5.1)
--- NOTE | 2020-04-17 07:50 | NUR ---
pt asst with bed demarco. voids 200cc cloudy yellow urine.
--- NOTE | 2020-04-17 14:20 | NUR ---
DR BARBOSA HERE. OK TO DC TO FLOOR OUT OF ICU ORDERED. PT C/O PAIN TO L FOOT. PO PAIN MEDS GIVEN.
--- NOTE | 2020-04-17 20:45 | NUR ---
PT IS OOB TO BATHROOM AFTER SETUP FOR BATH. BATHED SELF AND CHANGED GOWN INDEPENDENTLY.
[2020-04-18] VITALS (8 sets, daily range): BP systolic 104–137; BP diastolic 52–71
[2020-04-18 06:49] LABS: HEMATOCRIT 31.3 % (36.0-48.0); HEMOGLOBIN 9.9 g/dL (12-16); MCH 28.2 pg (26.0-34.0); MCHC 31.6 g/dL (31.0-37.0); MCV 89.2 fL (80.0-100.0); MEAN PLATELET VOLUME 9.5 fL (7.4-10.4); PLATELET COUNT 166 10x3/uL (130-400); RBC 3.51 10x6/uL (4.00-5.40); RDW 15.6 % (11.5-14.5); WBC 8.9 10x3/uL (4.8-10.8)
[2020-04-18 07:09] LABS: ANION GAP 18.3 mmol/L (8-16); CALCIUM 7.1 mg/dL (8.5-10.1); CARBON DIOXIDE 24.6 mmol/L (21.0-32.0); CREATININE - SERUM 12.5 mg/dL (0.6-1.3); EOSINOPHILS 1 % (0-7); LYMPHOCYTES 26 % (15-50); MONOCYTES 2 % (2-11); NEUTROPHILS 70 % (40-80); PLATELET ESTIMATE NORMAL; POTASSIUM - SERUM 4.9 mmol/L (3.5-5.1)
[2020-04-18 07:10] LABS: TARGET CELLS OCC
--- NOTE | 2020-04-18 08:00 | NUR ---
AWAKES EASILY SKIN WARM AND DRY. IV RIGHT FOREARM SALINE LOCK. NO REDNESS OR SWELLING NOTED. MONITOR SR. AMBULATING IN ROOM, WITH SOME UNSTEADY GAIT. DENIES PAIN OR DISCOMFORT. STATES SHE DOES MAKE URINE. BREAKFAST TRAY SERVED FAIR APPETITE.
--- NOTE | 2020-04-18 11:00 | NUR ---
RESTING IN BED WITH EYES CLOSED. AT BEDSIDE. RESP RATE DEEP AND REGULAR. NO DISTRESS.
--- NOTE | 2020-04-18 13:00 | NUR ---
AWAKE FOR LUNCH. ASSIST PATIENT WITH TRAY. APPETITE FAIR. NO DISTRESS. MOST PATIENT PAIN IS HER HEELS. HEEL PROTECTORS PROVIDED.
--- NOTE | 2020-04-18 16:47 | NUR ---
AMBULATING IN ROOM. STATES SHE MADE ALOT OF URINE TODAY. DINNER TRAY SERVED. AT BEDSIDE. NO DISTRESS.
--- NOTE | 2020-04-18 19:00 | NUR ---
REPORT RECEIVED. PT RESTING IN BED, C/O PAIN IN HEELS. ASSESSMENT COMPLETED, SEE FLOWSHEET. PIV IN RIGHT WRIST TO SALINE LOCK. WILL CONTINUE TO MONITOR.
--- NOTE | 2020-04-18 21:00 | NUR ---
PT RESTING IN BED, PM MEDS GIVEN WITHOUT DIFFICULTY.
--- NOTE | 2020-04-18 23:00 | NUR ---
NO CHANGES IN PATIENT STATUS. WILL CONTINUE TO MONITOR.
[2020-04-19] VITALS (8 sets, daily range): BP systolic 146–155; BP diastolic 69–88
--- NOTE | 2020-04-19 01:00 | NUR ---
DCED OLD PIV. NEW PIV PLACED IN RIGHT FOREARM. OLD CATH TIP INTACT.
--- NOTE | 2020-04-19 03:00 | NUR ---
PT RESTING IN BED, NO ACUTE DISTRESS NOTED.
--- NOTE | 2020-04-19 05:00 | NUR ---
PT RESTING IN BED, WILL CONTINUE TO MONITOR.
[2020-04-19 05:10] LABS: BASOPHILS 0.3 % (0-2); EOSINOPHILS 4.6 % (0-7); HEMATOCRIT 31.4 % (36.0-48.0); HEMOGLOBIN 10.2 g/dL (12-16); IMMATURE GRANULOCYTES 0.7 % (0-5); LYMPHOCYTES 22.9 % (15-50); MCH 28.7 pg (26.0-34.0); MCHC 32.5 g/dL (31.0-37.0); MCV 88.2 fL (80.0-100.0); MEAN PLATELET VOLUME 8.6 fL (7.4-10.4); MONOCYTES 18.3 % (2-11); NEUTROPHILS 53.2 % (40-80); PLATELET COUNT 149 10x3/uL (130-400); RBC 3.56 10x6/uL (4.00-5.40); RDW 15.2 % (11.5-14.5); WBC 7.1 10x3/uL (4.8-10.8)
[2020-04-19 05:29] LABS: ANION GAP 16.7 mmol/L (8-16); CARBON DIOXIDE 25.1 mmol/L (21.0-32.0); CREATININE - SERUM 13.8 mg/dL (0.6-1.3); POTASSIUM - SERUM 4.8 mmol/L (3.5-5.1)
[2020-04-19 05:47] LABS: CALCIUM 6.6 mg/dL (8.5-10.1)
--- NOTE | 2020-04-19 06:27 | NUR ---
DR BARBOSA SPOKEN WITH REGARDING CRITICAL CALCIUM THIS AM.
--- NOTE | 2020-04-19 07:20 | NUR ---
SHIFT REPORT RECEIVED. PT ALERT AND ORIENTED. RESTING IN BED. VSS. REPORTS PAIN 7/10 TO BILATERAL FEET. NO FEVER NOTED. ON ROOM AIR. HAS 20G PIV TO RFA S.L. CALL LIGHT IN REACH. SAFETY MEASURES IN PLACE. WILL CONTINUE TO MONITOR.
--- NOTE | 2020-04-19 08:00 | NUR ---
MEAL TRAY DELIVERED AND SET UP. NO FURTHER NEEDS AT THIS TIME.
--- NOTE | 2020-04-19 11:16 | NUR ---
BATH SET UP. COMPLETE LINEN CHANGE PROVIDED. PT BATHES SELF.
--- NOTE | 2020-04-19 11:22 | NUR ---
Nutrition Follow-up: Pt sleeping soundly at time of visit this AM. RD did not disturb. Chart reviewed. Noted pt with fair appetite and plans for HD tomorrow. Diet: Renal Wt: 206.8# (04/18); 206# (04/16) Labs noted: K+ 4.8, Ca 6.6, Alb 2.4 Meds reviewed -Encourage PO intake and honor food preferences within diet restrictions. -Monitor wt. -RD following.
--- NOTE | 2020-04-19 16:26 | NUR ---
NOT IN ROOM AT THIS TIME. WENT TO CT.
--- NOTE | 2020-04-19 19:20 | NUR ---
PT RECEIVED WITH EYES OPEN. NO NEEDS MADE KNOWN AT THIS TIME. PT UP TO BATHROOM AND BACK TO BED.
--- NOTE | 2020-04-19 23:01 | NUR ---
SPOKE TO ONCALL RENAL PHYSICIAN TO REPORT NAUSEA AND B/P. HAD GIVEN PRN APRESSOLINE PRIOR TO VOMITING, AND TREMOR NOTED TO RIGHT ARM. RECEIVED ORDER TO D/C APRESSOLINE AND START LABETALOL 10MG Q2H FOR B/P >160 AND 20MG Q2H FOR B/P >190 WITH PULSE >60, AND ZOFRAN FOR NAUSEA.
--- NOTE | 2020-04-19 23:28 | NUR ---
REPORT GIVEN TO RECEIVING NURSE. ROOM BEING CLEANED AT THIS TIME.
--- NOTE | 2020-04-19 23:51 | NUR ---
PT TRANSFERRED VIA WHEELCHAIR TO RM 2138. TOLERATED WELL. CHART AND PERSONAL BELONGINGS WITH PT.
--- NOTE | 2020-04-19 23:56 | NUR ---
PT RECIEVED FROM ICU TO ROOM 2137 VIA WC PROPELLED BY STAFF. PT IS ALERT AND ORIENTED X 3. DENIES ANY PAIN OR DISCOMFORT AT THIS TIME. SHE TRANSFERRED HERSELF TO THE BED. EXTRA WARM BLANKET PROVIDED PER HER REQUEST. VSS. PT REQUESTED NOT TO BE AWOKEN A LOT TONIGHT. SR'S ARE UP X 2 IN BED. CALL LIGHT AND BEDSIDE TABLE ARE WITHIN EASY REACH.
[2020-04-20 00:06] VITALS: BP 123/72
--- NOTE | 2020-04-20 02:20 | NUR ---
PT VOICED COMPLAINT OF BACK PAIN LEVEL OF 7. MEDICATED PER MAR.
[2020-04-20 04:11] VITALS: BP 121/67
--- NOTE | 2020-04-20 04:33 | NUR ---
PT IS RESTING IN BED WITH EYES CLOSED. NO DISTRESS NOTED.
[2020-04-20 06:32] LABS: BASOPHILS 0.5 % (0-2); EOSINOPHILS 3.8 % (0-7); HEMATOCRIT 31.5 % (36.0-48.0); HEMOGLOBIN 10.3 g/dL (12-16); IMMATURE GRANULOCYTES 0.5 % (0-5); LYMPHOCYTES 20.5 % (15-50); MCH 28.7 pg (26.0-34.0); MCHC 32.7 g/dL (31.0-37.0); MCV 87.7 fL (80.0-100.0); MEAN PLATELET VOLUME 8.5 fL (7.4-10.4); MONOCYTES 7.1 % (2-11); NEUTROPHILS 67.6 % (40-80); PLATELET COUNT 149 10x3/uL (130-400); RBC 3.59 10x6/uL (4.00-5.40); RDW 15.2 % (11.5-14.5); WBC 8.4 10x3/uL (4.8-10.8)
[2020-04-20 06:52] LABS: ANION GAP 20.5 mmol/L (8-16); CARBON DIOXIDE 23.5 mmol/L (21.0-32.0)
[2020-04-20 07:03] LABS: CALCIUM 6.8 mg/dL (8.5-10.1)
--- NOTE | 2020-04-20 07:50 | NUR ---
REPORT RECIEVED. PT LYING ON RIGHT SIDE. SHE HAS A R FA PIV THAT IS SL. PT IS A L ARM RESERVE FOR AN UPPER ARM FISTULA. BED LOCKED AND IN LOWEST POSITION, CALL LIGHT WITHIN REACH. WILL CTM
[2020-04-20 08:00] VITALS: BP 155/71
[2020-04-20] MEDS ORDERED: PLAVIX75 MG PO (10:06)
[2020-04-20] MEDS ORDERED: LIPITOR20 MG PO (10:07)
[2020-04-20] MEDS ORDERED: ASPIRIN325 MG PO (10:08)
--- NOTE | 2020-04-20 14:14 | NUR ---
Nutrition Follow-up: Ate ~50% of breakfast this AM but reports N/V; states N/V has been going on for a couple of mos with wt fluctuation (~10-15#). Agreed to try Nepro. Diet: Renal Wt: 208.8# (04/20); 206# (04/16) Last BM: 04/16 per pt Labs noted: Ca 6.8 Meds noted: Calcitriol, Tums -Encourage PO intake and honor food preferences within diet restrictions. -Nepro sent with lunch today for pt trial. -Monitor wt; noted daily wts ordered. -RD following.
--- NOTE | 2020-04-20 15:12 | NUR ---
DC PAPERWORK GONE OVER AND SIGNED WITH PT, ALL QUESTIONS ANSWERED. PIV REMOVED CATH TIP FULLY INTACT. ALL VALUBLES REMOVED FROM ROOM, PT WHEELED TO FRONT ENTRANCE.
== END 2020-04-20 15:13 | disposition home or self-care (01) | DRG 640 ==
LOC: D.ER 17:22 → D.ICU 17:35 → D.M2 17:35 → D.CVICU 17:35 → D.ICU 17:36 → D.CVICU 04-17 19:37 → D.M2 04-19 23:50
PROVIDERS: Family Medicine; ADMIT Internal Medicine Nephrology; ATTEND Internal Medicine Nephrology
PROC: 5A1D70Z Performance of Urinary Filtration, Intermittent, Less than 6 Hours Per Day (ICD-10-PCS; principal; 2020-04-16)
DX: E87.5 Hyperkalemia (principal); N18.6 End stage renal disease; N04.9 Nephrotic syndrome with unspecified morphologic changes; I13.2 Hypertensive heart and chronic kidney disease with heart failure and with stage 5 chronic kidney disease, or end stage renal disease; L97.422 Non-pressure chronic ulcer of left heel and midfoot with fat layer exposed; N25.81 Secondary hyperparathyroidism of renal origin; S91.309A Unspecified open wound, unspecified foot, initial encounter; E11.22 Type 2 diabetes mellitus with diabetic chronic kidney disease; Z99.2 Dependence on renal dialysis; I50.9 Heart failure, unspecified; E11.621 Type 2 diabetes mellitus with foot ulcer

== ENCOUNTER 2021-02-15 09:13 | Inpatient (IN) | payer MEDICARE, BC, MEDICAID ==
[~2021-02-15] VITALS: Ht 162.6 cm; Wt 94.8 kg
[~2021-02-15 09:13] MED LIST changes: +HYDRALAZINE20 MG/ML PO; +LIPITOR20 MG PO; +PERCOCET 10-321 EAC1 PO; -PERCOCET 7.5/321 TAB PO; +PLAVIX75 MG PO
[2021-02-15] MEDS ORDERED: RELPAX40 MG PO (09:20)
[2021-02-15 09:52] LABS: BASOPHILS 0.6 % (0-2); EOSINOPHILS 2.2 % (0-7); HEMATOCRIT 39.4 % (36.0-48.0); HEMOGLOBIN 12.5 g/dL (12-16); IMMATURE GRANULOCYTES 1.4 % (0-5); LYMPHOCYTE ABS# 2.16 10x3/uL (1.18-3.74); LYMPHOCYTES 19.5 % (15-50); MCH 28.2 pg (26.0-34.0); MCHC 31.7 g/dL (31.0-37.0); MCV 88.9 fL (80.0-100.0); MEAN PLATELET VOLUME 8.6 fL (7.4-10.4); MONOCYTES 12.4 % (2-11); NEUTROPHIL ABS# 7.06 10x3/uL (1.56-6.13); NEUTROPHILS 63.9 % (40-80); RBC 4.43 10x6/uL (4.00-5.40); RDW 15.5 % (11.5-14.5); WBC 11.1 10x3/uL (4.8-10.8)
[2021-02-15 09:57] LABS: PLATELET COUNT 283 10x3/uL (130-400)
[2021-02-15 10:01] LABS: ANION GAP 11.9 mmol/L (8-16); CALCIUM 8.9 mg/dL (8.5-10.1); CARBON DIOXIDE 30.3 mmol/L (21.0-32.0); CREATININE - SERUM 7.2 mg/dL (0.6-1.3); POTASSIUM - SERUM 4.2 mmol/L (3.5-5.1)
[2021-02-15 10:15] LABS: ALBUMIN 2.6 g/dL (3.4-5.0); BILIRUBIN - TOTAL 0.35 mg/dL (0.2-1.3); C-REACTIVE PROTEIN 4.2 mg/dL (0.0-0.9); PROTEIN - SERUM 9.3 g/dL (6.4-8.2)
[2021-02-15 11:06] VITALS: BP 157/96
[2021-02-15 12:06] VITALS: BP 178/90
--- NOTE | 2021-02-15 12:14 | NUR ---
ARRIVED TO UNIT PER W/C. IV TO RIGHT A/C FLUSHES WELL AND CAPPED WITH ORANGE CAP. DAUGHTER REPORT PATIENT HAS PSORIASIS. SMALL SORE TO RIGHT LAST TOE, CALLOUSED SCABBED AND APPEARS TO BE HEALING. SUNDAY STENT WAS PLACED IN RIGHT FEMORAL DRESSING REMOVED. LEFT FOOT GREAT TOE NECROTIC WITH ODOR, TOP OF TOE BY NAIL DRAINING WRAPPED WITH 2X2 AND GUAZE. 2ND TO LAST AND LAST TOE WITH CALLOUSED SCABBED AREAS. BEHIND LEFT CALF CLOSE TO ANKLE 2 BLISTERS CLOSED REDNESS TO AREA, TIGHT WITH SLIGHT SWELLING. JEWERLY GIVEN TO DAUGHTER TO TAKE HOME.
[2021-02-15 12:44] VITALS: BP 178/90; BMI 35.9
--- NOTE | 2021-02-15 15:36 | NUR ---
SHOOK MACHINE OPERATOR CALLS [facility] TO GET RECORDS ON PATIENT. HOSPITAL STATES PATIENT HAS NEVER BEEN A PATIENT AT THIS [facility].
[2021-02-15 16:00] VITALS: BP 144/87
[2021-02-15 18:07] LABS: ERYTHROCYTE SEDIMENTATION RATE 66 mm/hr (0-30)
--- NOTE | 2021-02-15 19:30 | NUR ---
PT IN BED, AAO X 4, RESP EVEN AND UNLABORED, NO DISTRESS NOTED, PT C/O PAIN TO RIGHT FOOT, TOES BLACK TO RIGHT FOOT, PAIN MED TO BED GIVEN, CL IN REACH, SR UP X 2.
[2021-02-15 20:00] VITALS: BP 124/72
[2021-02-16] VITALS: BP 113/53
[2021-02-16 04:00] VITALS: BP 127/69
[2021-02-16 06:16] LABS: BASOPHILS 0.6 % (0-2); EOSINOPHILS 2.3 % (0-7); HEMATOCRIT 37.6 % (36.0-48.0); HEMOGLOBIN 11.9 g/dL (12-16); LYMPHOCYTE ABS# 1.52 10x3/uL (1.18-3.74); LYMPHOCYTES 19.5 % (15-50); MCH 28.3 pg (26.0-34.0); MCHC 31.6 g/dL (31.0-37.0); MCV 89.5 fL (80.0-100.0); MEAN PLATELET VOLUME 8.6 fL (7.4-10.4); MONOCYTES 11.8 % (2-11); NEUTROPHIL ABS# 5.04 10x3/uL (1.56-6.13); NEUTROPHILS 64.8 % (40-80); PLATELET COUNT 287 10x3/uL (130-400); RDW 15.8 % (11.5-14.5)
[2021-02-16 06:36] LABS: WBC 7.8 10x3/uL (4.8-10.8)
[2021-02-16 06:37] LABS: ALBUMIN 2.2 g/dL (3.4-5.0); ANION GAP 16.3 mmol/L (8-16); BILIRUBIN - TOTAL 0.35 mg/dL (0.2-1.3); CALCIUM 8.4 mg/dL (8.5-10.1); CARBON DIOXIDE 25.8 mmol/L (21.0-32.0); CREATININE - SERUM 8.5 mg/dL (0.6-1.3); POTASSIUM - SERUM 4.1 mmol/L (3.5-5.1); PROTEIN - SERUM 8.2 g/dL (6.4-8.2); VANCOMYCIN - RANDOM 32.2 ug/mL (10.0-20.0)
--- NOTE | 2021-02-16 07:52 | NUR ---
NURSE PAGES SURGERY TO ASK ABOUT PLAN FOR DAY ON PATIENT.
[2021-02-16 08:53] VITALS: BP 134/77
--- NOTE | 2021-02-16 09:20 | NUR ---
PATIENT TAKEN TO XRAY
--- NOTE | 2021-02-16 10:10 | NUR ---
PATIENT BACK IN ROOM
[2021-02-16 11:56] VITALS: BP 119/84
--- NOTE | 2021-02-16 12:39 | NUR ---
PATIENT TAKEN DOWN TO DIALYSIS
[2021-02-16 14:29] VITALS: Ht 162.6 cm; Wt 94.8 kg
--- NOTE | 2021-02-16 19:00 | NUR ---
PT IN BED, PT REQUESTING PAIN MED AT THIS TIME, PT AAO X 4, RESP EVEN AND UNLABORED, NO DISTRESS NOTED, CL IN REACH, SR UP X 2.
[2021-02-16 19:46] VITALS: BP 126/94
[2021-02-16 23:14] VITALS: BP 145/83
--- NOTE | 2021-02-17 04:50 | NUR ---
I have reviewed this patient and I concur with the Shift Assessment completed by the Licensed Practical Nurse today this shift.
[2021-02-17 05:09] VITALS: BP 124/53
[2021-02-17 06:26] LABS: BASOPHILS 0.6 % (0-2); EOSINOPHILS 1.9 % (0-7); HEMATOCRIT 36.5 % (36.0-48.0); HEMOGLOBIN 11.6 g/dL (12-16); IMMATURE GRANULOCYTES 1.1 % (0-5); LYMPHOCYTE ABS# 1.55 10x3/uL (1.18-3.74); LYMPHOCYTES 18.4 % (15-50); MCH 28.4 pg (26.0-34.0); MCHC 31.8 g/dL (31.0-37.0); MCV 89.2 fL (80.0-100.0); MEAN PLATELET VOLUME 8.8 fL (7.4-10.4); MONOCYTES 8.3 % (2-11); NEUTROPHIL ABS# 5.89 10x3/uL (1.56-6.13); NEUTROPHILS 69.7 % (40-80); PLATELET COUNT 256 10x3/uL (130-400); RBC 4.09 10x6/uL (4.00-5.40); RDW 15.7 % (11.5-14.5); WBC 8.4 10x3/uL (4.8-10.8)
[2021-02-17 06:44] LABS: ANION GAP 11.7 mmol/L (8-16); BILIRUBIN - TOTAL 0.31 mg/dL (0.2-1.3); CARBON DIOXIDE 29.5 mmol/L (21.0-32.0); POTASSIUM - SERUM 4.2 mmol/L (3.5-5.1); PROTEIN - SERUM 7.3 g/dL (6.4-8.2); VANCOMYCIN - RANDOM 24.7 ug/mL (10.0-20.0)
[2021-02-17 08:17] VITALS: BP 111/67
[2021-02-17 11:36] VITALS: BP 113/61
[2021-02-17 15:58] VITALS: BP 149/80
[2021-02-17 19:28] VITALS: BP 110/68
[2021-02-18 00:45] VITALS: BP 116/50
[2021-02-18 06:33] LABS: BASOPHILS 0.2 % (0-2); EOSINOPHILS 0.1 % (0-7); HEMATOCRIT 33.9 % (36.0-48.0); HEMOGLOBIN 10.9 g/dL (12-16); IMMATURE GRANULOCYTES 0.4 % (0-5); LYMPHOCYTE ABS# 1.33 10x3/uL (1.18-3.74); LYMPHOCYTES 8.9 % (15-50); MCH 28.3 pg (26.0-34.0); MCHC 32.2 g/dL (31.0-37.0); MCV 88.1 fL (80.0-100.0); MEAN PLATELET VOLUME 8.9 fL (7.4-10.4); MONOCYTES 5.8 % (2-11); NEUTROPHIL ABS# 12.63 10x3/uL (1.56-6.13); NEUTROPHILS 84.6 % (40-80); PLATELET COUNT 276 10x3/uL (130-400); RBC 3.85 10x6/uL (4.00-5.40); RDW 15.6 % (11.5-14.5)
[2021-02-18 06:35] LABS: WBC 14.9 10x3/uL (4.8-10.8)
--- NOTE | 2021-02-18 07:10 | NUR ---
Sitting up in bed, awake/alert/oriented, T/R self ad aleah, cont of B/B with BRPs per self ad aleah, c/o throbbing pain to left great toe rated 9/10, medicated as ordered (see MAR), call light/phone/water within reach, no s/s of acute distress observed.
[2021-02-18 07:21] LABS: ALBUMIN 2.1 g/dL (3.4-5.0); ANION GAP 17.3 mmol/L (8-16); BILIRUBIN - TOTAL 0.31 mg/dL (0.2-1.3); CALCIUM 8.1 mg/dL (8.5-10.1); CARBON DIOXIDE 25.5 mmol/L (21.0-32.0); POTASSIUM - SERUM 4.8 mmol/L (3.5-5.1)
[2021-02-18 08:51] VITALS: BP 142/63
[2021-02-18 13:06] VITALS: BP 143/53
--- NOTE | 2021-02-18 13:39 | NUR ---
Nutrition Follow-up: POD 1 L hallux amputation. Eating well. Diet: Renal PO intake: 100% x 3 meals No new wt; last wt: 209# (02/16) Labs noted: Na 134, K+ 4.8, Glu 183, Ca 8.1, Alb 2.1 Meds noted: Lasix -Change to renal carb consistent diet. -RD will follow up within 5-7 days if pt still admitted.
[2021-02-18 15:51] VITALS: BP 187/79
[2021-02-18 20:19] VITALS: BP 143/75
[2021-02-19 00:59] VITALS: BP 96/60
[2021-02-19 05:47] VITALS: BP 124/61
--- NOTE | 2021-02-19 07:10 | NUR ---
Lying in bed, awake/alert/oriented, T/R self ad aleah, cont of B/B with BRPs per self ad aleah, c/o sharp aching left leg pain rated 9/10, medicated as ordered (see MAR), call light/phone/water within reach, no s/s of acute distress observed.
[2021-02-19 07:28] LABS: ALBUMIN 2.2 g/dL (3.4-5.0); ANION GAP 13.5 mmol/L (8-16); BILIRUBIN - TOTAL 0.3 mg/dL (0.2-1.3); CALCIUM 8.1 mg/dL (8.5-10.1); CARBON DIOXIDE 28.9 mmol/L (21.0-32.0); CREATININE - SERUM 7.1 mg/dL (0.6-1.3); POTASSIUM - SERUM 4.4 mmol/L (3.5-5.1); VANCOMYCIN - RANDOM 32.9 ug/mL (10.0-20.0)
[2021-02-19 07:48] LABS: BASOPHILS 0.6 % (0-2); EOSINOPHILS 2.4 % (0-7); HEMOGLOBIN 10.5 g/dL (12-16); IMMATURE GRANULOCYTES 0.7 % (0-5); LYMPHOCYTE ABS# 1.86 10x3/uL (1.18-3.74); LYMPHOCYTES 17.8 % (15-50); MCH 28.3 pg (26.0-34.0); MCHC 31.8 g/dL (31.0-37.0); MCV 88.9 fL (80.0-100.0); MEAN PLATELET VOLUME 8.7 fL (7.4-10.4); MONOCYTES 10.9 % (2-11); NEUTROPHIL ABS# 7.08 10x3/uL (1.56-6.13); NEUTROPHILS 67.6 % (40-80); PLATELET COUNT 251 10x3/uL (130-400); RBC 3.71 10x6/uL (4.00-5.40); RDW 16.1 % (11.5-14.5); WBC 10.5 10x3/uL (4.8-10.8)
[2021-02-19 08:26] VITALS: BP 119/53
[2021-02-19 15:20] VITALS: BP 117/59
--- NOTE | 2021-02-19 19:00 | NUR ---
REPORT RECEIVED AND CARE OF PT ASSUMED. PT LYING IN SUPINE POSITION WITH EYES CLOSED AND EASY RESPIRATIONS. IV TO RIGHT AC SALINE LOCKED. LEFT FISTULA HEP LOCKED. DRESSING ON LEFT FOOT CLEAN AND DRY. WILL MONITOR FOR NEEDS.
[2021-02-19 21:01] VITALS: BP 148/45
--- NOTE | 2021-02-19 21:35 | NUR ---
HS MEDICATIONS GIVEN TO INCLUDE MORPHINE PER REQUEST FOR PAIN.
--- NOTE | 2021-02-19 22:41 | NUR ---
GAVE PERCOCET PO PER REQUEST FOR CONTINUED SEVERE PAIN IN LEFT FOOT. WILL MONITOR FOR EFFECTIVENESS.
--- NOTE | 2021-02-20 07:20 | NUR ---
RECIEVE REPORT. ALERT AND ORIENTED X4. SITTING UP IN BED. DENIES ANY NEEDS. CONTINUE PLAN OF CARE AND SAFETY PRECAUTIONS.
[2021-02-20 07:28] LABS: BASOPHILS 0.9 % (0-2); HEMATOCRIT 35.6 % (36.0-48.0); HEMOGLOBIN 11.3 g/dL (12-16); IMMATURE GRANULOCYTES 0.8 % (0-5); LYMPHOCYTES 23.9 % (15-50); MCH 28.7 pg (26.0-34.0); MCHC 31.7 g/dL (31.0-37.0); MCV 90.4 fL (80.0-100.0); MEAN PLATELET VOLUME 8.8 fL (7.4-10.4); MONOCYTES 15.1 % (2-11); NEUTROPHIL ABS# 4.47 10x3/uL (1.56-6.13); NEUTROPHILS 56.3 % (40-80); PLATELET COUNT 233 10x3/uL (130-400); RBC 3.94 10x6/uL (4.00-5.40); RDW 16.2 % (11.5-14.5); WBC 7.9 10x3/uL (4.8-10.8)
[2021-02-20 08:07] LABS: ALBUMIN 2.2 g/dL (3.4-5.0); BILIRUBIN - TOTAL 0.35 mg/dL (0.2-1.3); CALCIUM 8.1 mg/dL (8.5-10.1); CARBON DIOXIDE 27.8 mmol/L (21.0-32.0); CREATININE - SERUM 8.5 mg/dL (0.6-1.3); POTASSIUM - SERUM 4.8 mmol/L (3.5-5.1); PROTEIN - SERUM 8.1 g/dL (6.4-8.2); VANCOMYCIN - RANDOM 27.9 ug/mL (10.0-20.0)
[2021-02-20 08:27] VITALS: BP 139/58
[2021-02-20 12:10] VITALS: BP 137/54
[2021-02-20] MEDS ORDERED: NEURONTIN 300300 MG PO (14:01)
[2021-02-20] MEDS ORDERED: CHRONULAC30 ML PO (14:02)
[2021-02-20] MEDS ORDERED: LEVOFLOXACIN500 MG PO ×2 (14:03→14:12)
--- NOTE | 2021-02-20 14:49 | NUR ---
RX FOR JIMUIN CALLED TO [facility] IN [place] REQUESTED BY PT.
--- NOTE | 2021-02-20 17:31 | NUR ---
ALERT AND ORIENTED X4. SITTING UP ON SIDE OF BED. SPOUSE AT BEDSIDE. DC LT AC IV TIP INTACT. DISCHARGE INSTRUCTIONS GIVEN VERBALLY AND WRITTEN. DISCHARGE PAPERS SIGNED ON CHART. ESCORT TO RIDE VIA WHEELCHAIR. REMAINS FREE FROM INJURY. DRESSING CHANGE DIRECTIONS PROVIDED. WRITTEN PRESCRIPTION PROVIDED.
--- NOTE | 2021-02-20 18:38 | MORECARE ---
CASE MANAGEMENT DISCHARGE SUMMARY PATIENT: KISHA NIELSEN UNIT: [id number] ADM DATE: 02/15/21 AGE: 65 : 57 SEX: F ROOM/BED: D.2136 AUTHOR: KODY,DOC PHYSICIAN: REFERRING PHYSICIAN: KAREN JONES MD DATE OF SERVICE: 02/20/21 Case Management Discharge Planning Summary DCP REVIEW SUMMARY ANTICIPATED D/C DATE: 02/20/2021 EXPECTED LOS : 5 CASE STATUS: DCP Complete INITIAL REVIEW: 02/15/2021 INITIAL REVIEWER: Trish Hendrix FINAL DISCHARGE DISPOSITION: 01 : Home or Self Care (Routine Discharge) FINAL REVIEWER: FINAL REVIEW DATE: DCP Focus Questions & Answers DCP Screen QUESTION: ANSWER High Risk Factors: : None Walking limitation: Patient stated self rated walking limitation present? : Yes Age: : 47 - 66 Prior living environment: : Lives with others Disability ranking: : Grade 3: Moderate disability DCP Evaluation QUESTION: ANSWER Patient's ability to cope with chronic illness : d. No chronic illness Would patient like to participate in any Care Coordination programs (if applicable): : Not applicable Mental health screen: : No mental health history DCP Re-evaluation QUESTION: ANSWER Would patient like to participate in any Care Coordination programs (if applicable): : Not applicable PATIENT: KISHA NIELSEN ENCOUNTER: [id number] MEDICAL RECORD#: [id number] ADMISSION DATE: 02/15/2021 DISCHARGE DATE: 02/20/2021 ATTENDING MD: MALIK: AGE: 65 MARITAL STATUS: M DC PLAN ID: [id number] FACILITY: [facility] PRINTED ON: 02/20/21 18:38 CT All edits/amendments must be made on the electronic document DICTATION DATE: 02/20/211836 HUMAN RESOURCE ADVISER: DM 02/20/211836 RPT#: [id number] DC DATE:02/20/21 STATUS: DIS IN [facility] [address] [place] [address] END OF REPORT
--- NOTE | 2021-02-20 18:50 | MORECARE ---
CASE MANAGEMENT DISCHARGE SUMMARY PATIENT: KISHA NIELSEN UNIT: [id number] ADM DATE: 02/15/21 AGE: 65 : 59 SEX: F ROOM/BED: D.3896 AUTHOR: KODY,DOC PHYSICIAN: REFERRING PHYSICIAN: KAREN JONES MD DATE OF SERVICE: 02/20/21 Case Management Discharge Planning Summary COMMENTS ENTERED DATE: 02/20/21 18:44 CT COMMENT TYPE: Discharge Planning REVIEWER: Trish Hendrix CM met with patient to complete DC plan and to evaluate needs. Patient lives at home with , Giorgio [phone]. Patient's stated that their home is safe and has electricity and running water. Patient stated that she has no problems paying for medications and she fills her medications at [facility] in [place]. At discharge, the patient plans to return home and feels this is a safe discharge. CM discussed availability of home health, rehab services, and medical equipment. Patient declined HHS, SNF, IPR, and DME. Patient stated that she is NWB, s/p left tow amputation and assistance with ADLs will be provided by her . Patient voiced no other needs at this time and is satisfied with DC plan. DC IMM delivered, explained, signed by the patient, and placed in chart. Signed form also left with the patient. CM will continue to follow and will assist as needed with dc plans/needs. DCP REVIEW SUMMARY ANTICIPATED D/C DATE: 02/20/2021 EXPECTED LOS : 5 CASE STATUS: DCP Complete INITIAL REVIEW: 02/15/2021 INITIAL REVIEWER: Trish Hendrix FINAL DISCHARGE DISPOSITION: 01 : Home or Self Care (Routine Discharge) FINAL REVIEWER: FINAL REVIEW DATE: DCP Focus Questions & Answers DCP Screen QUESTION: ANSWER High Risk Factors: : None Walking limitation: Patient stated self rated walking limitation present? : Yes Age: : 47 - 66 Prior living environment: : Lives with others Disability ranking: : Grade 3: Moderate disability DCP Evaluation QUESTION: ANSWER Family / Caregiver's ability to cope with chronic illness: : a. Adequate (ability to meet patient's medical needs, ensures patient attends medical appts.) Patient's ability to cope with chronic illness : a. Adequate (0-3 ED visits in 6 mos., adequate financial resources, attends scheduled appts.) Patient's current cognitive status: : *Oriented to person, place, situation, time and present Patient and/or caregiver agree upon recommended discharge plan? : Yes Physical Status: : Independent with ADL's Family / Caregiver's ability to cope with chronic illness: : a. Adequate (ability to meet patient's medical needs, ensures patient attends medical appts.) Partial Dependence, assistance required for: : Ambulation / Mobility Living Arrangements: : Home with Spouse/Significant Other Baseline cognitive status: : *Oriented to person, place, situation, time and present Patient with capacity for self-care or can be cared for in same environment as prior to hospitalization? : Yes Other Equipment comments: : walker at home - patient NWB Physical environment modification needed / anticipated for discharge: : N/A Medication Management: : Patient states can afford medications Physical environment referral comments (if applicable): : Pt's will provide assistance with ADLs during recovery Pharmacy name(s): : [facility] Planned post hospital services available for patient? : N/A Does Patient have transportation to get home and to follow-up medical appointments when discharged from the hospital? : Yes Planned post hospital services covered by insurance plan? : N/A Would patient like to participate in any Care Coordination programs (if applicable): : Not applicable Does the patient have electricity at home? : Yes Does the patient have running water in their house? : Yes Equipment in use: : Walker - Standard Other Equipment comments: : Pt states she has walker at home. Mental health screen: : No mental health history DCP Re-evaluation QUESTION: ANSWER Would patient like to participate in any Care Coordination programs (if applicable): : Not applicable PATIENT: KISHA NIELSEN ENCOUNTER: [id number] MEDICAL RECORD#: [id number] ADMISSION DATE: 02/15/2021 DISCHARGE DATE: 02/20/2021 ATTENDING MD: MALIK: AGE: 65 MARITAL STATUS: M DC PLAN ID: [id number] FACILITY: [facility] PRINTED ON: 02/20/21 18:50 CT All edits/amendments must be made on the electronic document DICTATION DATE: 02/20/211849 FILL MANAGER: ILIANA 02/20/211849 RPT#: [id number] DC DATE:02/20/21 STATUS: DIS IN [facility] [address] [place] [address] END OF REPORT
== END 2021-02-20 17:33 | disposition home or self-care (01) | DRG 255 ==
LOC: D.ER 09:13 → D.M2 09:51
PROVIDERS: Emergency Medicine; Family Medicine; Internal Medicine Nephrology; Podiatrist Foot & Ankle Surgery; ADMIT Family Medicine; ATTEND Family Medicine
PROC: 5A1D70Z Performance of Urinary Filtration, Intermittent, Less than 6 Hours Per Day (ICD-10-PCS; 2021-02-16)
PROC: 0Y6Q0Z1 Detachment at Left 1st Toe, High, Open Approach (ICD-10-PCS; principal; 2021-02-17 12:30)
DX: E11.52 Type 2 diabetes mellitus with diabetic peripheral angiopathy with gangrene (principal); N18.6 End stage renal disease; I96 Gangrene, not elsewhere classified; I12.0 Hypertensive chronic kidney disease with stage 5 chronic kidney disease or end stage renal disease; M86.172 Other acute osteomyelitis, left ankle and foot; E11.69 Type 2 diabetes mellitus with other specified complication; E11.22 Type 2 diabetes mellitus with diabetic chronic kidney disease; E11.621 Type 2 diabetes mellitus with foot ulcer; L97.522 Non-pressure chronic ulcer of other part of left foot with fat layer exposed; D63.1 Anemia in chronic kidney disease

== ENCOUNTER 2021-02-25 14:35 | Inpatient (IN) | payer MEDICARE, BC, MEDICAID ==
[~2021-02-25] VITALS: Ht 162.6 cm; Wt 93.9 kg
[~2021-02-25 14:35] MED LIST changes: +CHRONULAC30 ML PO; +LEVOFLOXACIN500 MG PO; +NEURONTIN 300300 MG PO; +RELPAX40 MG PO
[2021-02-25 16:02] LABS: BASOPHILS 0.4 % (0-2); EOSINOPHILS 0.4 % (0-7); HEMATOCRIT 40.3 % (36.0-48.0); HEMOGLOBIN 12.8 g/dL (12-16); IMMATURE GRANULOCYTES 0.6 % (0-5); LYMPHOCYTES 15.4 % (15-50); MCH 28.6 pg (26.0-34.0); MCHC 31.8 g/dL (31.0-37.0); MCV 90.2 fL (80.0-100.0); MEAN PLATELET VOLUME 9.1 fL (7.4-10.4); MONOCYTES 7.2 % (2-11); NEUTROPHIL ABS# 10.88 10x3/uL (1.56-6.13); PLATELET COUNT 254 10x3/uL (130-400); RBC 4.47 10x6/uL (4.00-5.40); RDW 16.4 % (11.5-14.5); WBC 14.3 10x3/uL (4.8-10.8)
[2021-02-25 16:24] LABS: ANION GAP 21.3 mmol/L (8-16); CALCIUM 8.5 mg/dL (8.5-10.1); CARBON DIOXIDE 24.8 mmol/L (21.0-32.0); CREATININE - SERUM 10.8 mg/dL (0.6-1.3); POTASSIUM - SERUM 5.1 mmol/L (3.5-5.1)
[2021-02-25 16:29] LABS: ALBUMIN 2.6 g/dL (3.4-5.0); BILIRUBIN - TOTAL 0.42 mg/dL (0.2-1.3); MAGNESIUM - SERUM 2.5 mg/dL (1.8-2.4); PHOSPHOROUS 7.3 mg/dL (2.5-4.9); PROTEIN - SERUM 8.8 g/dL (6.4-8.2)
--- NOTE | 2021-02-25 17:29 | NUR ---
PATIENT HAS CALMED DOWN CONSIDERABLY AND IS MUCH LESS AGITATED ALTHOUGH SHE IS STILL RESTLESS. FAMILY IS AT BEDSIDE. DR. FORMAN IS AWARE OF RESTLESSNESS AND VITAL SIGNS AT THIS TIME AND DOES NOT WANT TO GIVE ANY FURTHER MEDICATIONS. NO DISTRESS NOTED.
[2021-02-25 17:30] VITALS: BP 164/124
[2021-02-25 18:00] VITALS: BP 166/96
[2021-02-25 20:03] VITALS: BP 153/86
[2021-02-25 23:52] VITALS: BP 107/45
--- NOTE | 2021-02-26 01:05 | NUR ---
PT LETHARGIC. AWAKENS TO PAIN. PT AT BEDSIDE. PT OXYGEN SATURATION 80 ON RA PLACED ON BNC AT 6L AND INCREASED TO 98%. PT WILL NOT AWAKEN LONG ENOUGHT TO TAKE MEDICATIONS. WILL CONTINUE TO MONITOR.
[2021-02-26 03:28] VITALS: BP 108/59
[2021-02-26 08:00] VITALS: BP 103/60
[2021-02-26 10:25] VITALS: BMI 47.2
--- NOTE | 2021-02-26 10:39 | NUR ---
PATIENT LYING SUPINE EYES RESTING, VERY LETHARGIC AND EYES BARELY OPEN TO STERNUM RUB, MEDICATIONS NOT GIVEN DUE TO PATIENT NOT BEING ALERT ENOUGH TO SWALLOW, DIALYSIS NOTIFIED AND NEPHROLOGY NOTIFIED WELL FOR BOBBI ORDER, DARYA OWEN
[2021-02-26 12:00] VITALS: BP 101/63
--- NOTE | 2021-02-26 12:05 | NUR ---
DRESSING TO LEFT FOOT REMOVED BY EMRE, GREAT TOE AMPUTATION AND STITCHES IN PLACE, WOUND IS DRY AND BLACK, NEW DRESSING APPLIED AND DATED
[2021-02-26 12:39] VITALS: Ht 162.6 cm; Wt 93.9 kg
[2021-02-26 16:31] LABS: BILIRUBIN NEGATIVE (NEGATIVE); KETONE NEGATIVE (NEGATIVE); NITRITE NEGATIVE (NEGATIVE); UROBILINOGEN NORMAL mg/dL (< 2)
[2021-02-26 16:32] LABS: BACTERIA MODERATE HPF (NONE SEEN); WHITE CELLS - URINE >50 HPF (0-4)
[2021-02-26 16:33] LABS: AMORPHOUS SEDIMENT MODERATE LPF (NONE SEEN)
[2021-02-26 16:49] VITALS: BP 165/93
--- NOTE | 2021-02-26 17:00 | NUR ---
IN AND OUT CATH PERFORMED ON PATIENT WITH HELP OF RN, PATIENT TOLERATED WITH PAIN AND DISCOMFORT, PATIENT WAS GIVEN NARCAN AND HALDOL PATIENT IS FOAMING AT THE MOUTH AND HER BODY IS SHAKING, TACH 156 HR, CONSULTED CARDIOLOGY AND GENERAL DOCTOR URGENTLY, NOTIFIED DR. FIORE WELL, BED IN [facility]
--- NOTE | 2021-02-26 19:32 | NUR ---
PATIENT RESTING IN BED WITH NO S/S OF DISTRESS AND DENIES NEEDS AT THIS TIME. BED IN LOWEST POSITION AND CALL LIGHT IN REACH. ENCOURAGED PATIENT TO CALL WITH NEEDS.
[2021-02-26 19:57] VITALS: BP 128/77
[2021-02-26 19:57] LABS: BASOPHILS 0.2 % (0-2); EOSINOPHILS 0.1 % (0-7); HEMATOCRIT 39.6 % (36.0-48.0); HEMOGLOBIN 12.7 g/dL (12-16); IMMATURE GRANULOCYTES 0.4 % (0-5); LYMPHOCYTES 3.5 % (15-50); MCH 28.7 pg (26.0-34.0); MCHC 32.1 g/dL (31.0-37.0); MCV 89.6 fL (80.0-100.0); MONOCYTES 4.7 % (2-11); NEUTROPHIL ABS# 15.51 10x3/uL (1.56-6.13); NEUTROPHILS 91.1 % (40-80); PLATELET COUNT 231 10x3/uL (130-400); RBC 4.42 10x6/uL (4.00-5.40); RDW 16.3 % (11.5-14.5)
[2021-02-26 20:18] LABS: ALBUMIN 2.7 g/dL (3.4-5.0); ANION GAP 20.2 mmol/L (8-16); BILIRUBIN - TOTAL 0.52 mg/dL (0.2-1.3); CALCIUM 8.5 mg/dL (8.5-10.1); CREATININE - SERUM 9.8 mg/dL (0.6-1.3); POTASSIUM - SERUM 5.2 mmol/L (3.5-5.1); PROTEIN - SERUM 8.6 g/dL (6.4-8.2)
--- NOTE | 2021-02-26 20:34 | NUR ---
ADMINISTERED MEDS PER ORDERS. PATIENT LIZETTE WELL. ENCOURAGED PATIENT TO CALL WITH NEEDS.
[2021-02-26 21:19] LABS: ERYTHROCYTE SEDIMENTATION RATE 75 mm/hr (0-30)
[2021-02-27 01:38] VITALS: BP 167/101
[2021-02-27 05:44] VITALS: BP 168/85
--- NOTE | 2021-02-27 07:00 | NUR ---
REPORT RECEIVED. PATIENT IS LETHARGIC BUT RESPONDS TO SPEECH. NO VERBAL RESPONSES AT THIS TIME. AT BEDSIDE. NO S/S OF DISTRESS OBSERVED. RR EVEN AND UNLABORED ON 6L VIA NC. RT EJ, PATENT, SL, DRSG C/D/I. UNABLE TO SWALLOW AT THIS TIME, PO MEDS HELD. BED ALARM ON. WILL CPOC.
[2021-02-27 08:07] VITALS: BP 174/97
--- NOTE | 2021-02-27 10:53 | NUR ---
RICHARD ANDREA, DR. LOPEZ, AND RICHARD FOX AT BEDSIDE TALKING WITH PATIENTS .
--- NOTE | 2021-02-27 11:25 | NUR ---
I have reviewed this patient and I concur with the Shift Assessment completed by the Licensed Practical Nurse today this shift.
[2021-02-27 12:06] VITALS: BP 164/69
--- NOTE | 2021-02-27 15:46 | NUR ---
RECIEVED TELEPHONE ORDER FROM EMRE NIELSEN APN TO MI RODRIGUEZ
[2021-02-27 16:55] VITALS: BP 117/42
--- NOTE | 2021-02-27 16:55 | NUR ---
HELD LOPRESSOR PER ORDER FOR HR OF 73
[2021-02-27 20:00] VITALS: BP 172/84
[2021-02-28] VITALS (11 sets, daily range): BP systolic 114–164; BP diastolic 67–91
--- NOTE | 2021-02-28 03:09 | NUR ---
I have reviewed this patient and I concur with the Shift Assessment completed by the Licensed Practical Nurse today this shift.
[2021-02-28 07:09] LABS: BASOPHILS 0.4 % (0-2); EOSINOPHILS 0.6 % (0-7); HEMATOCRIT 41.2 % (36.0-48.0); IMMATURE GRANULOCYTES 0.3 % (0-5); LYMPHOCYTE ABS# 1.33 10x3/uL (1.18-3.74); LYMPHOCYTES 10.4 % (15-50); MCH 28.4 pg (26.0-34.0); MCHC 31.6 g/dL (31.0-37.0); MEAN PLATELET VOLUME 9.6 fL (7.4-10.4); MONOCYTES 7.5 % (2-11); NEUTROPHIL ABS# 10.38 10x3/uL (1.56-6.13); NEUTROPHILS 80.8 % (40-80); PLATELET COUNT 286 10x3/uL (130-400); RBC 4.58 10x6/uL (4.00-5.40); RDW 16.3 % (11.5-14.5); WBC 12.9 10x3/uL (4.8-10.8)
--- NOTE | 2021-02-28 07:13 | NUR ---
RECEIVE SHIFT REPORT. RESTING IN BED WITH EYES CLOSED. AROUSES SLIGHTLY TO VOICE. DAUGHTER AT BEDSIDE. WILL CONTINUE POC AND SAFETY PRECAUTIONS.
[2021-02-28 07:35] LABS: CALCIUM 8.4 mg/dL (8.5-10.1); CARBON DIOXIDE 23.6 mmol/L (21.0-32.0); VANCOMYCIN - RANDOM 40.2 ug/mL (10.0-20.0)
[2021-02-28 07:48] LABS: CREATININE - SERUM 12.7 mg/dL (0.6-1.3)
[2021-02-28 07:52] LABS: POTASSIUM - SERUM 6.6 mmol/L (3.5-5.1)
--- NOTE | 2021-02-28 08:00 | CN ---
PATIENT NAME:KISHA NIELSEN MEDICAL RECORD: [id number] : 59 LOCATION:D. D.2127 ADMIT DATE: 02/25/21 ACCOUNT: [id number] CONSULTING PHYSICIAN: GHADA ABRAMS MD REFERRING PHYSICIAN: ZULEMA FIORE MD DATE OF CONSULTATION: 02/27/2021 HISTORY OF PRESENT ILLNESS: A 65-year-old female with chronic renal insufficiency, on dialysis in [place], actually presented there with mental status changes with lethargy, was recently started on increased pain medication secondary to a big toe amputation, actually became quite responsive with Narcan and then became more somnolent and also had tachycardia. We are asked to see her concerning her cardiac arrhythmias. PAST MEDICAL HISTORY: Includes; 1. History of chronic renal insufficiency. 2. Hypertension. 3. Peripheral vascular disease. 4. Peripheral neuropathy. MEDICATIONS: Include lactulose 20 grams b.i.d., Lasix 40 b.i.d., Percocet 10/325 q.6 p.r.n., Neurontin 300 t.i.d., Relpax 40 mg every day, aspirin 81 every day, Plavix 75 every day. SOCIAL HISTORY: Unobtainable secondary to patient factors. REVIEW OF SYSTEMS: Unobtainable secondary to patient factors. PHYSICAL EXAMINATION: GENERAL: Lethargic, in no acute distress, appears stated age. VITAL SIGNS: Blood pressure 174/97, pulse currently 79 and regular. HEENT: Normocephalic, atraumatic. NECK: No bruits noted. HEART: Regular, II/ systolic ejection murmur. LUNGS: Limited exam. Fairly good air excursion. ABDOMEN: Soft, nontender. EXTREMITIES: Pulses are decreased. No edema. IMPRESSION: In reviewing strips, difficult to assess for something such as an AVNRT versus a sinus tachycardia, responded well to IV beta blockade and will continue this on a scheduled basis. Again, she was switched to p.o. once lethargy becaomes less of an issues. Echocardiographic study has been ordered as well. TRANSINT:[id number] Voice Confirmation ID: [id number] DOCUMENT ID: [id number] GHADA ABRAMS MD at 0800 CC: [id number] DICTATION DATE: 02/27/21 0948 MILK HOUSE WORKER: 02/27/212006 ADM IN [facility] [address] [place] [id number]
--- NOTE | 2021-02-28 09:52 | NUR ---
TALKED WITH JACKELIN BREAUX WITH RENAL REGARDING PT'S K+ 6.6 AND NO DIALYSIS ORDERS. STATES SHE WILL PLACE ORDERS AND LET THEM KNOW TO DO TODAY.
--- NOTE | 2021-02-28 15:52 | NUR ---
PATIENT IN DIALYSIS AND HYPOTENSIVE. DR. ADKINS WANTS PATIENT TRANSFERRED TO ICU FROM DIALYSIS.
--- NOTE | 2021-02-28 16:21 | NUR ---
PT ARRIVED ON UNIT VIA BED, HOOKED TO MONITORS, ON 6L NC, VSS, WILL CON'T TO MONTIOR
[2021-03-01] VITALS (38 sets, daily range): BP systolic 96–171; BP diastolic 54–96
--- NOTE | 2021-03-01 02:56 | NUR ---
I have reviewed this patient and I concur with the Shift Assessment completed by the Licensed Practical Nurse today this shift.
[2021-03-01 05:21] LABS: BASOPHILS 0.4 % (0-2); EOSINOPHILS 2.4 % (0-7); HEMATOCRIT 39.5 % (36.0-48.0); HEMOGLOBIN 12.5 g/dL (12-16); IMMATURE GRANULOCYTES 0.5 % (0-5); LYMPHOCYTE ABS# 1.82 10x3/uL (1.18-3.74); LYMPHOCYTES 12.7 % (15-50); MCH 28.5 pg (26.0-34.0); MCHC 31.6 g/dL (31.0-37.0); MEAN PLATELET VOLUME 9.9 fL (7.4-10.4); MONOCYTES 10.3 % (2-11); NEUTROPHIL ABS# 10.57 10x3/uL (1.56-6.13); NEUTROPHILS 73.7 % (40-80); PLATELET COUNT 281 10x3/uL (130-400); RBC 4.39 10x6/uL (4.00-5.40); RDW 16.3 % (11.5-14.5); WBC 14.3 10x3/uL (4.8-10.8)
[2021-03-01 05:48] LABS: ANION GAP 14.7 mmol/L (8-16); CALCIUM 8.8 mg/dL (8.5-10.1); CARBON DIOXIDE 29.5 mmol/L (21.0-32.0); VANCOMYCIN - RANDOM 32.7 ug/mL (10.0-20.0)
[2021-03-01 05:52] LABS: CREATININE - SERUM 8.8 mg/dL (0.6-1.3); POTASSIUM - SERUM 5.2 mmol/L (3.5-5.1)
--- NOTE | 2021-03-01 07:25 | NUR ---
laying in bed resting, at bedside, pt somewhat confused, denies pain at this time, call light in reach, will monitor
--- NOTE | 2021-03-01 08:00 | NUR ---
at bedside assisting with breakfast tray, tolerated well
--- NOTE | 2021-03-01 10:00 | NUR ---
Nutrition follow-up: Diet order: Renal at bedside feeding pt breakfast; pt mus be fed or she will not eat PO intake fair to good at this time. Wt: 207# labs reviewed; K still high but trending down Will continue to provide food choices and honor food preferences within diet restrictions. Follow-up on progress toward goals: 03/03/21
[2021-03-01 11:11] LABS: ANA REFLEX - ANTICHROMATIN ABS 0.2 AI (0.0-0.9); ANA REFLEX - CENTROMERE B ABS <0.2 AI (0.0-0.9); ANA REFLEX - DBL STRANDED DNA 1 IU/mL (0-9); ANA REFLEX - DIRECT Positive (Negative); ANA REFLEX - JO-1 AB <0.2 AI (0.0-0.9); ANA REFLEX - RNP ANTIBODIES 3.1 AI (0.0-0.9); ANA REFLEX - SCL-70 <0.2 AI (0.0-0.9); ANA REFLEX - SJOGRENS AB SSA <0.2 AI (0.0-0.9); ANA REFLEX - SJOGRENS AB SSB 2.7 AI (0.0-0.9); ANA REFLEX - SMITH AB <0.2 AI (0.0-0.9)
--- NOTE | 2021-03-01 11:24 | NUR ---
RESTING COMFORTABLE, AT BEDSIDE
--- NOTE | 2021-03-01 11:58 | NUR ---
at bedside assisting with lunch tray
--- NOTE | 2021-03-01 15:19 | NUR ---
pt started on dialysis at this time
--- NOTE | 2021-03-01 18:25 | NUR ---
resting comfortable, no needs voiced, family at bedside, will monitor
[2021-03-02] VITALS (24 sets, daily range): BP systolic 93–145; BP diastolic 48–128
[2021-03-02 05:23] LABS: BASOPHILS 0.5 % (0-2); EOSINOPHILS 3.5 % (0-7); HEMATOCRIT 39.3 % (36.0-48.0); HEMOGLOBIN 12.4 g/dL (12-16); IMMATURE GRANULOCYTES 0.3 % (0-5); LYMPHOCYTES 11.6 % (15-50); MCH 28.2 pg (26.0-34.0); MCHC 31.6 g/dL (31.0-37.0); MCV 89.3 fL (80.0-100.0); MEAN PLATELET VOLUME 9.9 fL (7.4-10.4); MONOCYTES 12.4 % (2-11); NEUTROPHIL ABS# 6.79 10x3/uL (1.56-6.13); NEUTROPHILS 71.7 % (40-80); PLATELET COUNT 260 10x3/uL (130-400); RDW 16.2 % (11.5-14.5)
[2021-03-02 05:40] LABS: WBC 9.5 10x3/uL (4.8-10.8)
[2021-03-02 05:53] LABS: ANION GAP 12.3 mmol/L (8-16); CALCIUM 8.6 mg/dL (8.5-10.1); CARBON DIOXIDE 28.9 mmol/L (21.0-32.0); CREATININE - SERUM 5.5 mg/dL (0.6-1.3); POTASSIUM - SERUM 4.2 mmol/L (3.5-5.1); VANCOMYCIN - RANDOM 26.1 ug/mL (10.0-20.0)
--- NOTE | 2021-03-02 07:20 | NUR ---
LAYING IN BED RESTING COMFORTABLE, NO NEEDS VOICED, WILL MONITOR
--- NOTE | 2021-03-02 08:30 | NUR ---
DAUGHTER ASSISTING PT WITH BREAKFAST TRAY, TOLERATED WELL, CALL LIGHT IN REACH, WILL MONITOR
--- NOTE | 2021-03-02 12:00 | NUR ---
DAUGHTER AT BEDSIDE, REPOSITIONED FOR COMFORT, CALL LIGHT IN REACH, WILL MONITOR
--- NOTE | 2021-03-02 12:15 | EC ---
PATIENT:KISHA NIELSEN DATE OF SERVICE: 02/25/21 SEX: F MEDICAL RECORD: [id number] DATE OF : 59 LOCATION:[facility] D230 AGE OF PATIENT: 65 ADMISSION DATE: 02/25/21 REFERRING PHYSICIAN: INTERPRETING PHYSICIAN: GHADA ABRAMS MD ECHOCARDIOGRAM REPORT ECHO CHARGES 4 ECHO COMPLETE Date: 02/28/21 CLINICAL DIAGNOSIS: SVT ECHOCARDIOGRAPHIC MEASUREMENTS (adult normal given) AC root (d.<3.7cm) 3.0 cm LV Septum d (<1.2 cm> 1.1 cm Valve Excursion 1.5 cm LV Septum (systole) 1.5 cm Left Atria (s.<4.0cm> 3.6 cm LVPW d(<1.2cm) 1.0 cm RV (d.<2.3cm) 2.5 cm LVPW (sytole) 1.1 cm LV diastole(<5.6CM) 5.1 cm MV E-F(>70mm/sec) cm LV systole 3.6 cm LVOT Diameter 1.6 cm MV exc.(>10mm) 1.6 cm Est.ejection fraction (50-75%) % DOPPLER: LVIT cm/sec A 74 cm/sec E 51 cm/sec LA cm/sec RVSP 17 mmHg LVOT 80 cm/sec AOP1/2T m/s Asc. Ao 97 cm/sec RVOT 73 cm/sec RA cm/sec PA 76 cm/sec AV Gradient Peak 3.8 mmHg AV Mean 1.8 mmHg AV Area 1.9 cm MV Gradient Peak 3.4 mmHg MV Mean 2.1 mmHg MV Area cm COMMENTS: Real Estate Firm Manager: Tracy MARTINEZ Economic Adviser: 3 Dr. Miller TAPE# Pericardial Effusion N DATE OF SERVICE: Adequate 2D, color flow imaging, spectral Doppler, and M-Mode. FINDINGS: No LVH. LV internal dimension is normal. Wall motion is normal. EF is greater than or equal to 55%. Aortic valve is tricuspid. No evidence of stenosis by Doppler interrogation. Left atrium is normal at 3.6 cm. Mitral valve shows no prolapse. Trace MR. Right side is grossly normal. Trace TR. TRANSINT:[id number] Voice Confirmation ID: [id number] DOCUMENT ID: [id number] ECHOCARDIOGRAM REPORT [id number] GIA,KISHA GHADA POOL MD at 1215 CC: [id number] DICTATION DATE: 03/01/21 1338 AUDIOLOGY TECHNICIAN: 03/01/21 1612 ADM IN [place] [id number] [place] [id number]
--- NOTE | 2021-03-02 16:50 | NUR ---
DINNER TRAY SERVED, NO NEEDS VOICED, CALL LIGHT IN REACH, WILL MONITOR
[2021-03-03] VITALS (19 sets, daily range): BP systolic 113–172; BP diastolic 73–108
[2021-03-03 04:43] LABS: BASOPHILS 0.9 % (0-2); EOSINOPHILS 6.1 % (0-7); HEMATOCRIT 38.4 % (36.0-48.0); HEMOGLOBIN 12.2 g/dL (12-16); IMMATURE GRANULOCYTES 0.6 % (0-5); LYMPHOCYTE ABS# 1.44 10x3/uL (1.18-3.74); LYMPHOCYTES 14.9 % (15-50); MCH 28.5 pg (26.0-34.0); MCHC 31.8 g/dL (31.0-37.0); MCV 89.7 fL (80.0-100.0); MEAN PLATELET VOLUME 9.3 fL (7.4-10.4); MONOCYTES 14.6 % (2-11); NEUTROPHIL ABS# 6.08 10x3/uL (1.56-6.13); NEUTROPHILS 62.9 % (40-80); PLATELET COUNT 249 10x3/uL (130-400); RBC 4.28 10x6/uL (4.00-5.40); RDW 16.3 % (11.5-14.5); WBC 9.7 10x3/uL (4.8-10.8)
[2021-03-03 05:09] LABS: ANION GAP 13.2 mmol/L (8-16); CALCIUM 8.4 mg/dL (8.5-10.1); CARBON DIOXIDE 28.3 mmol/L (21.0-32.0); POTASSIUM - SERUM 4.5 mmol/L (3.5-5.1)
[2021-03-03 05:21] LABS: CREATININE - SERUM 7.5 mg/dL (0.6-1.3); VANCOMYCIN - RANDOM 25.2 ug/mL (10.0-20.0)
--- NOTE | 2021-03-03 10:03 | NUR ---
Nutrition follow-up: Diet changed to renal puree, mechanical soft per speech pathologist PO intake 75-100% of meals if fed Labs reviewed Wt: 207# today; admit wt was 275#? Nurse reports pt is awake, alert but confused Please get a current wt to chart due to large wt descrepancy. RDN will reassess: 03/07/21
--- NOTE | 2021-03-03 17:25 | NUR ---
PATIENT RECIEVED TO [facility] AT 1645 NO CURRENT PAIN OR DISTRESS. RESIDENT SLIGHTLY CONFUSED. BUT ABLE TO BE REDIRECTED. DOES HAVE ALTERED MENTAL STATUS ON OCCASION. RESPIRATIONS EVEN AND UNLABORED ON ROOM AIR. LUNG SOUNDS CLEAR. HEART SOUNDS REGULAR RATE AND RYTHYM. TELE SR. SKING TO BACK AND BUTTOCKS FREE OF WOUNDS OR LESIONS. LEGS WITH DRY AREAS, SCALY AREA TO BILATERAL OUTER ANKLE. ELBOWS DRY AND SCALY. LEFT TOE AMPUTATION NOTED, DRESSING C/D/I. RIGHT SIDED IJ , DRESSING C/D/I. PATIENT IS ALLERGIC TO CODIENE.
--- NOTE | 2021-03-03 17:58 | NUR ---
PATIENT ATE WELL NO CURRENT PAIN OR DISTRESS NOTED. IN VERY GOOD MOOD. NO CONFUSION AT THE MOMENT. SON IN ROOM IJ TO RIGHT SIDE. FLUSHES WELL
--- NOTE | 2021-03-03 19:46 | NUR ---
REPORT RECEIVED. PT A&O, UP IN BED WITH FAMILY AT BEDSIDE. NO S/S OF DISTRESS OBSERVED. RR EVEN & UNLABOREDO ON RA. IJ TO R JUGULAR SL, SWAB CAPS IN USE. DRESSING TO L FOOT FOR L GREAT TOE AMPUTATION. PAIN 0/10 AT THIS TIME. BED LOCKED AND LOWERED, CL IN REACH. ASSESSMENT COMPLETE. WILL CONT POC.
[2021-03-04 00:02] VITALS: BP 144/81
[2021-03-04 04:59] LABS: BASOPHILS 0.7 % (0-2); HEMOGLOBIN 12.2 g/dL (12-16); IMMATURE GRANULOCYTES 0.7 % (0-5); LYMPHOCYTE ABS# 1.39 10x3/uL (1.18-3.74); LYMPHOCYTES 14.5 % (15-50); MCH 28.5 pg (26.0-34.0); MCHC 32.1 g/dL (31.0-37.0); MCV 88.8 fL (80.0-100.0); MEAN PLATELET VOLUME 8.8 fL (7.4-10.4); MONOCYTES 13.2 % (2-11); NEUTROPHILS 63.9 % (40-80); PLATELET COUNT 207 10x3/uL (130-400); RBC 4.28 10x6/uL (4.00-5.40); WBC 9.6 10x3/uL (4.8-10.8)
[2021-03-04 05:07] VITALS: BP 165/82
[2021-03-04 05:17] LABS: ANION GAP 14.8 mmol/L (8-16); CALCIUM 8.8 mg/dL (8.5-10.1); CARBON DIOXIDE 28.6 mmol/L (21.0-32.0); CREATININE - SERUM 6.7 mg/dL (0.6-1.3); POTASSIUM - SERUM 4.4 mmol/L (3.5-5.1); VANCOMYCIN - RANDOM 21.3 ug/mL (10.0-20.0)
--- NOTE | 2021-03-04 08:00 | NUR ---
RESIDENT AWAKE AND ALERT. ABLE TO MAKE NEEDS KNOWN. CONFUSION GOOD THIS MORNING. IJ DRESSING C/D/I PATENT. DRESSING TO LEFT GREAT TOE CHANGED. RESP EVEN AND UNLABORED. LUNG SOUNDS CLEAR. HEART SOUNDS REGULAR RATE AND RYTHYM. LEFT ARM FISTULA TRILL AND BRUIT NORMAL.
[2021-03-04 08:13] VITALS: BP 131/59
[2021-03-04] MEDS ORDERED: FLORINEF 0.1 M0.1 MG PO (12:40)
[2021-03-04] MEDS ORDERED: MIDODRINE HCL5 MG PO (12:41)
--- NOTE | 2021-03-04 12:44 | NUR ---
RECIEVED BEDSIDE REPORT. RESIDENT RESTING IN BED. RESP EVEN AND UNLABORED. NO CURRENT PAIN OR DISTRESS VOICED. IJ TO RIGHT. PATENT.
--- NOTE | 2021-03-04 16:35 | NUR ---
I have reviewed this patient and I concur with the Shift Assessment completed by the Licensed Practical Nurse today this shift.
--- NOTE | 2021-03-04 16:45 | NUR ---
REPORT FROM DIALYSIS, 1.5 LITERS OF FLUID TAKEN. BLOOD PRESSURE LOWERED SEVERAL TIMES. AFTER DIALYSIS B/P UP 135/64.
--- NOTE | 2021-03-04 17:16 | NUR ---
PATIENT DISCHARGED HOME WITH SON, VIA W/C AND FAMILY VEHICLE DISCHARGE PAPERWORK SIGNED AND WENT OVER FOLLOW UP AND MEDICATION LIST. PATIENT HAPPY TO BE GOING HOME.
== END 2021-03-04 17:18 | disposition home or self-care (01) | DRG 917 ==
LOC: D.ER 14:35 → D.ICU 18:17 → D.M2 18:17 → D.ICU 02-28 16:21 → D.M2 03-03 16:51
PROVIDERS: Emergency Medicine; Family Medicine; ADMIT Internal Medicine Nephrology; ATTEND Internal Medicine Nephrology
DX: T40.601A Poisoning by unspecified narcotics, accidental (unintentional), initial encounter (principal); G92 Toxic encephalopathy; N18.6 End stage renal disease; I12.0 Hypertensive chronic kidney disease with stage 5 chronic kidney disease or end stage renal disease; N25.81 Secondary hyperparathyroidism of renal origin; E11.52 Type 2 diabetes mellitus with diabetic peripheral angiopathy with gangrene; I96 Gangrene, not elsewhere classified; E11.22 Type 2 diabetes mellitus with diabetic chronic kidney disease; E11.65 Type 2 diabetes mellitus with hyperglycemia; Z99.2 Dependence on renal dialysis; D63.1 Anemia in chronic kidney disease; E87.5 Hyperkalemia

== ENCOUNTER 2021-03-26 18:02 | Inpatient (IN) | payer MEDICARE, BC, MEDICAID ==
[2021-03-26] VITALS (13 sets, daily range): BP systolic 72–160; BP diastolic 45–93
[~2021-03-26] VITALS: Ht 162.6 cm; Wt 96.1 kg
[~2021-03-26 18:02] MED LIST changes: +FLORINEF 0.1 M0.1 MG PO; +MIDODRINE HCL5 MG PO
[2021-03-26 18:58] LABS: BASOPHILS 0.3 % (0-2); EOSINOPHILS 0 % (0-7); HEMATOCRIT 34.7 % (36.0-48.0); HEMOGLOBIN 11.1 g/dL (12-16); LYMPHOCYTES 3.3 % (15-50); MCH 28.2 pg (26.0-34.0); MCV 88.1 fL (80.0-100.0); MEAN PLATELET VOLUME 7.3 fL (7.4-10.4); MONOCYTES 4.6 % (2-11); NEUTROPHILS 91.8 % (40-80); RBC 3.94 10x6/uL (4.00-5.40); RDW 16.6 % (11.5-14.5)
[2021-03-26 19:00] LABS: PLATELET COUNT 274 10x3/uL (130-400)
[2021-03-26 19:05] LABS: APTT 26.7 SECONDS (22.8-39.4); INR 1.33 (0.85-1.17); PROTIME 15.3 SECONDS (11.6-15.0)
[2021-03-26 19:07] LABS: CALC OSMOLALITY 304 mosm/kg (275-300); CALCIUM 7.7 mg/dL (8.5-10.1); CHLORIDE - SERUM 101 mmol/L (98-107); CREATININE - SERUM 11.8 mg/dL (0.6-1.3); POTASSIUM - SERUM 4.3 mmol/L (3.5-5.1); SODIUM 142 mmol/L (136-145); UREA NITROGEN 54 mg/dL (7-18); eGFR NON AFRICAN AMERICAN 3 mL/min (90-120)
[2021-03-26 19:08] LABS: GLUCOSE 227 mg/dL (74-106)
--- NOTE | 2021-03-26 19:13 | NUR ---
REPORT RECEIVED FROM [facility]. PT HAS SNORING RESPIRATIONS, AROUSABLE TO TACTILE STIMULI.
--- NOTE | 2021-03-26 19:13 | NUR ---
REPORT RECEIVED FROM [facility]. PT HAS SNORING RESPIRATIONS. ON 2L NC WITH SPO2 100%. SHE SLIGHTLY AROUSES TO TACTILE STIMULI, NOTED TO BE MOVING LOWER EXTREMETIES INDEPENDENLY. AIRWAY SUCTIONED D/T COPIOUS SECRETIONS. PT CHANGED INTO HOSPITAL GOWN. ON OVEN TENDER SINUS RHYTHM OF 80. STRAIGHT CATH URINE COLLECTED AND SENT TO LAB, PT THEN MOVED TO T4 FOR INTUBATION PER EDP ORDER.
[2021-03-26 19:27] LABS: ALBUMIN 2.8 g/dL (3.4-5.0); ALKALINE PHOSPHATASE 105 U/L (30-120); ALT (SGPT) 14 U/L (10-68); BILIRUBIN - TOTAL 0.49 mg/dL (0.2-1.3); CKMB 3.8 U/L (0.0-3.6); CREATINE KINASE 88 UL (21-215); MAGNESIUM - SERUM 2.3 mg/dL (1.8-2.4); PROTEIN - SERUM 8.1 g/dL (6.4-8.2); THYROID STIMULATING HORMONE 0.54 uIU/mL (0.36-3.74)
[2021-03-26 19:35] LABS: TROPONIN-I 1.151 ng/mL (0.000-0.060)
[2021-03-26 20:09] LABS: UDS - AMPHET NEGATIVE QUAL (NEGATIVE); UDS - BARB NEGATIVE QUAL (NEGATIVE); UDS - BENZO NEGATIVE QUAL (NEGATIVE); UDS - COCAINE NEGATIVE QUAL (NEGATIVE); UDS - OPIATE NEGATIVE QUAL (NEGATIVE); UDS - PCP NEGATIVE QUAL (NEGATIVE); UDS - THC NEGATIVE QUAL (NEGATIVE)
--- NOTE | 2021-03-26 20:09 | NUR ---
ETOMIDATE 20MG IVP ADMINISTERED SUCCINYLCHOLINE 100MG IVP ADMINISTERED PT INTUBATED WITH 7.5 ETT 23 @ LIP.
[2021-03-26 20:15] LABS: BILIRUBIN NEGATIVE (NEGATIVE); KETONE NEGATIVE (NEGATIVE); NITRITE NEGATIVE (NEGATIVE); UROBILINOGEN NORMAL mg/dL (< 2)
[2021-03-26 20:17] LABS: BACTERIA FEW HPF (NONE SEEN); SQUAMOUS EPITHELIAL 0-5 HPF (0-4)
--- NOTE | 2021-03-26 23:24 | NUR ---
PT REPOSITIONED TO LEFT SIDE, HEELS BRIDGED. NOTED BANDAGE ON LEFT FOOT. FAMILY REPORTS PT HAD AMPUTATION APPROX 3 WEEKS AGO. NOTED SMALL WOUND ON RIGHT 5TH TOE, ULCERATION NOTED THAT APPEARS DRY AND DARK COLORED. VALENTINA SANCHEZ APRN NOTIFIED OF SKIN INTEGRITY.
[2021-03-27] VITALS (44 sets, daily range): BP systolic 82–167; BP diastolic 37–89; BMI 35.9
[2021-03-27 01:03] LABS: BASOPHILS 0.1 % (0-2); EOSINOPHILS 0.1 % (0-7); HEMATOCRIT 34.5 % (36.0-48.0); HEMOGLOBIN 11.2 g/dL (12-16); IMMATURE GRANULOCYTES 0.4 % (0-5); LYMPHOCYTE ABS# 1.54 10x3/uL (1.18-3.74); MCH 28.3 pg (26.0-34.0); MCHC 32.5 g/dL (31.0-37.0); MCV 87.1 fL (80.0-100.0); MEAN PLATELET VOLUME 9.2 fL (7.4-10.4); MONOCYTES 11.2 % (2-11); NEUTROPHIL ABS# 10.84 10x3/uL (1.56-6.13); NEUTROPHILS 77.2 % (40-80); PLATELET COUNT 246 10x3/uL (130-400); RBC 3.96 10x6/uL (4.00-5.40); RDW 15.1 % (11.5-14.5); WBC 14.1 10x3/uL (4.8-10.8)
[2021-03-27 01:31] LABS: SARS-CoV-2 ANTIGEN NEGATIVE- SARS-COV-2 (NEGATIVE)
[2021-03-27 01:33] LABS: ALBUMIN 2.7 g/dL (3.4-5.0); ANION GAP 18.6 mmol/L (8-16); BILIRUBIN - TOTAL 0.42 mg/dL (0.2-1.3); CALCIUM 7.7 mg/dL (8.5-10.1); CARBON DIOXIDE 24.9 mmol/L (21.0-32.0); CREATININE - SERUM 12.1 mg/dL (0.6-1.3); MAGNESIUM - SERUM 2.4 mg/dL (1.8-2.4); POTASSIUM - SERUM 4.5 mmol/L (3.5-5.1); PROTEIN - SERUM 7.8 g/dL (6.4-8.2)
[2021-03-27 01:34] LABS: TROPONIN-I 2.188 ng/mL (0.000-0.060)
--- NOTE | 2021-03-27 02:01 | NUR ---
SPOKE WITH DR. PEPPER AT THIS TIME R/T INCREASE IN TROPONIN, DR. PEPPER BELIEVES RISE IN TROPONIN IS SECONDARY TO RENAL FAILURE.
--- NOTE | 2021-03-27 02:43 | NUR ---
PT REPOSITIONED TO RIGHT SIDE, HEELS BRIDGED. AIRWAY PATENT.
--- NOTE | 2021-03-27 05:46 | NUR ---
PT REPOSITIONED TO LEFT SIDE AT THIS TIME, HEELS BRIDGED. LEVOPHED TITRATED AND NOW TURNED OFF.
--- NOTE | 2021-03-27 07:41 | NUR ---
PATIENT RESTING QUIETLY, SEDATED AT THIS TIME. VENTILATOR IN PLACE AND RUNNING, NO ALARMS AT THIS TIME. CHEST RISE AND FALL NOTED. IV SITES DRY AND INTACT WITH MEDICATIONS INFUSING - PROPOFOL AT 20 MCG. PATIENT DRY AT THIS TIME. NO DISTRESS NOTED.
[2021-03-27 10:04] LABS: % SATURATION 56 % (15-55); IRON 70 ug/dl (35-150); TOTAL IRON BIND CAPACITY 125 ug/dl (260-445); UNSAT IRON BIND CAPACITY 55 ug/dl (150-375)
[2021-03-28] VITALS (37 sets, daily range): BP systolic 77–161; BP diastolic 40–91; BMI 36.5
[2021-03-28 04:52] LABS: BASOPHILS 1.4 % (0-2); EOSINOPHILS 3.1 % (0-7); HEMATOCRIT 33.5 % (36.0-48.0); LYMPHOCYTES 16.8 % (15-50); MCH 28.3 pg (26.0-34.0); MCHC 32.9 g/dL (31.0-37.0); MCV 86.2 fL (80.0-100.0); MEAN PLATELET VOLUME 7.4 fL (7.4-10.4); MONOCYTES 11.5 % (2-11); NEUTROPHILS 67.2 % (40-80); PLATELET COUNT 286 10x3/uL (130-400); RBC 3.89 10x6/uL (4.00-5.40); RDW 16.3 % (11.5-14.5)
[2021-03-28 05:01] LABS: WBC 9.8 10x3/uL (4.8-10.8)
[2021-03-28 05:25] LABS: ALBUMIN 2.5 g/dL (3.4-5.0); BILIRUBIN - TOTAL 0.44 mg/dL (0.2-1.3); CALCIUM 7.9 mg/dL (8.5-10.1); CARBON DIOXIDE 26.9 mmol/L (21.0-32.0); CREATININE - SERUM 11.4 mg/dL (0.6-1.3); MAGNESIUM - SERUM 2.2 mg/dL (1.8-2.4); POTASSIUM - SERUM 3.9 mmol/L (3.5-5.1); PROTEIN - SERUM 7.3 g/dL (6.4-8.2); VANCOMYCIN - RANDOM 17.4 ug/mL (10.0-20.0)
[2021-03-29] VITALS (24 sets, daily range): BP systolic 103–168; BP diastolic 54–93
[2021-03-29 04:25] LABS: BASOPHILS 0.8 % (0-2); HEMATOCRIT 32.2 % (36.0-48.0); HEMOGLOBIN 10.6 g/dL (12-16); LYMPHOCYTES 17.9 % (15-50); MCH 28.4 pg (26.0-34.0); MCHC 32.9 g/dL (31.0-37.0); MCV 86.2 fL (80.0-100.0); MEAN PLATELET VOLUME 7.3 fL (7.4-10.4); MONOCYTES 11.8 % (2-11); NEUTROPHILS 67.5 % (40-80); PLATELET COUNT 261 10x3/uL (130-400); RBC 3.74 10x6/uL (4.00-5.40); WBC 8.1 10x3/uL (4.8-10.8)
[2021-03-29 05:18] LABS: ALBUMIN 2.1 g/dL (3.4-5.0); BILIRUBIN - TOTAL 0.41 mg/dL (0.2-1.3); CALCIUM 7.9 mg/dL (8.5-10.1); CARBON DIOXIDE 28.7 mmol/L (21.0-32.0); MAGNESIUM - SERUM 2.1 mg/dL (1.8-2.4); PROTEIN - SERUM 6.7 g/dL (6.4-8.2); VANCOMYCIN - RANDOM 13.5 ug/mL (10.0-20.0)
[2021-03-29 05:23] LABS: ANION GAP 13.6 mmol/L (8-16); POTASSIUM - SERUM 3.3 mmol/L (3.5-5.1); TROPONIN-I 0.502 ng/mL (0.000-0.060)
--- NOTE | 2021-03-29 06:00 | NUR ---
I have reviewed this patient and I concur with the Shift Assessment completed by the Licensed Practical Nurse today this shift.
[2021-03-30] VITALS (23 sets, daily range): BP systolic 91–187; BP diastolic 60–103
[2021-03-30 04:49] LABS: BASOPHILS 0.7 % (0-2); EOSINOPHILS 3.4 % (0-7); HEMATOCRIT 33.4 % (36.0-48.0); HEMOGLOBIN 10.9 g/dL (12-16); LYMPHOCYTES 18.1 % (15-50); MCH 28.6 pg (26.0-34.0); MCHC 32.6 g/dL (31.0-37.0); MCV 87.5 fL (80.0-100.0); MEAN PLATELET VOLUME 7.5 fL (7.4-10.4); MONOCYTES 15.3 % (2-11); NEUTROPHILS 62.5 % (40-80); PLATELET COUNT 303 10x3/uL (130-400); RBC 3.81 10x6/uL (4.00-5.40); RDW 16.7 % (11.5-14.5); WBC 8.5 10x3/uL (4.8-10.8)
[2021-03-30 05:16] LABS: ALBUMIN 2.2 g/dL (3.4-5.0); ANION GAP 12.9 mmol/L (8-16); BILIRUBIN - TOTAL 0.34 mg/dL (0.2-1.3); CARBON DIOXIDE 28.1 mmol/L (21.0-32.0); CREATININE - SERUM 8.2 mg/dL (0.6-1.3); MAGNESIUM - SERUM 2.2 mg/dL (1.8-2.4); VANCOMYCIN - RANDOM 26.4 ug/mL (10.0-20.0)
--- NOTE | 2021-03-30 07:10 | NUR ---
REPORT RECEIVED FROM OFF GOING NURSE AND PATIENT CARE ASSUMED. PATIENT LAYING IN BED ON BACK WITH EYES CLOSED ON VENT. VSS. ALL LINES, TUBES CHECKED AND PATENT. VSS. JOYCE SOFT WRIST RESTRAINTS INTACT. WILL CONTINUE WITH PLAN OF CARE. SR UP X 2 BED IN LOW POSITION AND CALL LIGHT IN REACH.
--- NOTE | 2021-03-30 10:15 | NUR ---
DR HAYDEE ARMAS. NEW ORDERS RECEIVED. PROPOFOL TURNED OFF AND CPAP TRIAL BEGAN. SPOKE WITH WHO HAD SECURITY CODE. SPOKE ON PHONE GAVE UPDATE AND ANSWERED QUESTIONS TO SATISSEDRICK. THANKED THIS NURSE FOR CARE TODAY.
--- NOTE | 2021-03-30 12:45 | NUR ---
DR HUBBARD ON UNIT. NO NEW ORDERS RECEIVED. PATIENT IS STABLE AND VSS. WILL CONTINUE TO MONITOR. SR UP X 2 BED IN LOW POSITION AND CALL LIGHT IN REACH.
--- NOTE | 2021-03-30 13:01 | NUR ---
Nutrition follow-up: CPAP trials today; sedation off Nepro infusing @ 30 ml/hr with goal rate of 40 ml/hr Labs reviewed Wt: 212# REceiving dialysis RDN will follow-up on progress toward nutrition goals in 2-3 days.
--- NOTE | 2021-03-30 20:23 | NUR ---
SISTER CALLED, UPDATE GIVEN.
[2021-03-31] VITALS (25 sets, daily range): BP systolic 105–149; BP diastolic 37–81
[2021-03-31 04:46] LABS: BASOPHILS 0.8 % (0-2); EOSINOPHILS 2.6 % (0-7); HEMATOCRIT 33.3 % (36.0-48.0); HEMOGLOBIN 10.8 g/dL (12-16); LYMPHOCYTES 15.1 % (15-50); MCHC 32.4 g/dL (31.0-37.0); MCV 86.4 fL (80.0-100.0); MEAN PLATELET VOLUME 7.4 fL (7.4-10.4); NEUTROPHILS 65.5 % (40-80); PLATELET COUNT 329 10x3/uL (130-400); RBC 3.86 10x6/uL (4.00-5.40); RDW 16.5 % (11.5-14.5); WBC 9.1 10x3/uL (4.8-10.8)
[2021-03-31 05:05] LABS: ALBUMIN 2.4 g/dL (3.4-5.0); ANION GAP 12.6 mmol/L (8-16); BILIRUBIN - TOTAL 0.33 mg/dL (0.2-1.3); CALCIUM 8.6 mg/dL (8.5-10.1); CARBON DIOXIDE 28.2 mmol/L (21.0-32.0); CREATININE - SERUM 7.3 mg/dL (0.6-1.3); MAGNESIUM - SERUM 2.3 mg/dL (1.8-2.4); PHOSPHOROUS 4.1 mg/dL (2.5-4.9); POTASSIUM - SERUM 3.8 mmol/L (3.5-5.1); PROTEIN - SERUM 7.4 g/dL (6.4-8.2); VANCOMYCIN - RANDOM 24.2 ug/mL (10.0-20.0)
--- NOTE | 2021-03-31 05:21 | NUR ---
I have reviewed this patient and I concur with the Shift Assessment completed by the Licensed Practical Nurse today this shift.
--- NOTE | 2021-03-31 19:30 | NUR ---
REPORT REC'D AND CARE ASSUMED, REC'D PT EYES OPEN ON VENT VIA 7.5ETT TAPED @ 23CM LIPLINE, SEE FLOWSHEET FOR VENT SETTINGS, RIGHT EJ NOT DISLODGED WHEN TURNED PT'S HEAD, DIPRIVAN MOVED TO RIGHT A/C AT THIS TIME, PT'S NECK CLEANED, VSS, NS @ 1OCC/HR TO RIGHT A/C WELL, LEFT ARM FISTULA WITH PALPABLE THRILL AND BRUIT, GENERALIZED EDEMA, 3+ PITTING EDEMA TO LOWER EXTS, OGT TAPED SECURELY TO ETT, PLACEMENT VERIFIED VIA SM AIR BOLUS AUSCULTATED OVER EPIGASTRIM, NEPRO INFUSING @ 30CC/HR WITH 10CC Q2 HOUR FLUSH, BILAT SOFT WRIST RESTRAINTS INTACT, SR UP X 2, BED IN LOW POSITION.
--- NOTE | 2021-03-31 20:00 | NUR ---
AT BS, UPDATE PROVIDED AND QUESTIONS ANSWERED.
--- NOTE | 2021-03-31 20:30 | NUR ---
PT INCONTINENT OF LIQUID BROWN STOOL, PARTIAL BATH AND LINEN CHANGE PROVIDED, PT REPOSITIONED UP AND ONTO LEFT SIDE SUPPORTED WITH PILLOWS, WILL MONITOR FOR CHANGES.
[2021-04-01] VITALS (25 sets, daily range): BP systolic 94–155; BP diastolic 34–88
[2021-04-01 05:46] LABS: ALBUMIN 2.5 g/dL (3.4-5.0); BILIRUBIN - TOTAL 0.48 mg/dL (0.2-1.3); CARBON DIOXIDE 29.1 mmol/L (21.0-32.0); CREATININE - SERUM 8.7 mg/dL (0.6-1.3); MAGNESIUM - SERUM 2.6 mg/dL (1.8-2.4); PROTEIN - SERUM 7.6 g/dL (6.4-8.2); VANCOMYCIN - RANDOM 20.1 ug/mL (10.0-20.0)
[2021-04-01 05:52] LABS: ANION GAP 14.5 mmol/L (8-16); PHOSPHOROUS 5.2 mg/dL (2.5-4.9); POTASSIUM - SERUM 4.6 mmol/L (3.5-5.1)
[2021-04-01 06:05] LABS: HEMATOCRIT 34.5 % (36.0-48.0); HEMOGLOBIN 11.3 g/dL (12-16); LYMPHOCYTE ABS# 1.74 10x3/uL (1.18-3.74); MCH 28.4 pg (26.0-34.0); MCHC 32.8 g/dL (31.0-37.0); MCV 86.7 fL (80.0-100.0); MEAN PLATELET VOLUME 10.1 fL (7.4-10.4); PLATELET COUNT 266 10x3/uL (130-400); RBC 3.98 10x6/uL (4.00-5.40); RDW 15.7 % (11.5-14.5); WBC 10.1 10x3/uL (4.8-10.8)
[2021-04-01 07:50] LABS: LYMPHOCYTES 23 % (15-50); MONOCYTES 1 % (2-11); NEUTROPHILS 76 % (40-80); PLATELET ESTIMATE NORMAL
--- NOTE | 2021-04-01 10:17 | NUR ---
Nutrition follow-up: Intubated, sedated with propofol @ 20 mcg Nepro infusing @ 30 ml/hr/OGT; to increase today to goal rate of 40 ml/hr Labs reviewed Wt: 212# Liquid stool RDN will monitor patients continued progress toward nutrition goals in 3-4 days.
--- NOTE | 2021-04-01 16:15 | NUR ---
FAMILY IN EARLY AND CALLING ON PHONE AND UPDATED ON STATUS. PT ON CPAP TRIAL AT PRESENT AFTER DIALYSIS AND PROPOFOL OFF AT PRESENT. DIALYSIS REMOVED 3 LITERS OF FLUID.
--- NOTE | 2021-04-01 17:06 | NUR ---
LIQUID BM X 2 TODAY PATIENT CLEANED ORAL CARE DONE AND TURNED.
[2021-04-02] VITALS (21 sets, daily range): BP systolic 104–152; BP diastolic 39–101
[2021-04-02 04:46] LABS: BASOPHILS 0.6 % (0-2); EOSINOPHILS 1.5 % (0-7); HEMATOCRIT 34.4 % (36.0-48.0); HEMOGLOBIN 11.2 g/dL (12-16); LYMPHOCYTES 12.1 % (15-50); MCH 28.2 pg (26.0-34.0); MCHC 32.5 g/dL (31.0-37.0); MCV 86.9 fL (80.0-100.0); MEAN PLATELET VOLUME 7.6 fL (7.4-10.4); MONOCYTES 16.5 % (2-11); NEUTROPHILS 69.3 % (40-80); PLATELET COUNT 294 10x3/uL (130-400); RBC 3.96 10x6/uL (4.00-5.40); WBC 12.3 10x3/uL (4.8-10.8)
[2021-04-02 05:00] LABS: ALBUMIN 2.5 g/dL (3.4-5.0); BILIRUBIN - TOTAL 0.42 mg/dL (0.2-1.3); CARBON DIOXIDE 31.3 mmol/L (21.0-32.0); CREATININE - SERUM 6.7 mg/dL (0.6-1.3); PROTEIN - SERUM 7.8 g/dL (6.4-8.2); VANCOMYCIN - RANDOM 18.5 ug/mL (10.0-20.0)
[2021-04-02 05:03] LABS: ANION GAP 11.4 mmol/L (8-16); POTASSIUM - SERUM 3.7 mmol/L (3.5-5.1)
--- NOTE | 2021-04-02 09:22 | NUR ---
DIPROVAN OFF FOR CPAP TRIALS. RT NOTIFIED.
--- NOTE | 2021-04-02 09:46 | NUR ---
PT EXTUBATED TO 2LNC. DR HUBBARD HERE ON ROUNDS. RESTRAINTS DCD.
--- NOTE | 2021-04-02 12:18 | NUR ---
PT INC OF STOOL. PT BATHED AND LINENS CHANGED.
--- NOTE | 2021-04-02 21:05 | NUR ---
SPOKE WITH , PASSCODE PROVIDED, UPDATE GIVEN. STATES HE WILL BE HERE IN THE AM.
--- NOTE | 2021-04-02 23:59 | NUR ---
PT REFUSED BIPAP MULTIPLE TIMES. STATED SHE WANTED TO GO HOME AND SHE WASNT DOING ANYTHING ELSE TONIGHT. PERIOD!
[2021-04-03] VITALS (24 sets, daily range): BP systolic 107–152; BP diastolic 37–89
--- NOTE | 2021-04-03 04:14 | NUR ---
PT TEARFUL, REFUSING XRAY, STATES "I'M READY TO GO." ATTEMPTED TO EDUCATE PT ON NEED, UNRECEPTIVE, CONTINUES TO INSIST ON GOING HOME. XRAY OUT OF ROOM, PHLEBO IN ROOM. PT ALLOWING LAB DRAW THIS AM, NO LONGER TEARFUL, SMILING AND CONVERSING WITH PHLEBO AT BEDSIDE.
[2021-04-03 12:51] LABS: BASOPHILS 0.4 % (0-2); EOSINOPHILS 2.8 % (0-7); HEMATOCRIT 34.3 % (36.0-48.0); LYMPHOCYTE ABS# 1.26 10x3/uL (1.18-3.74); MCH 28.3 pg (26.0-34.0); MCHC 32.1 g/dL (31.0-37.0); MCV 88.2 fL (80.0-100.0); MEAN PLATELET VOLUME 9.2 fL (7.4-10.4); MONOCYTES 13.6 % (2-11); NEUTROPHIL ABS# 6.68 10x3/uL (1.56-6.13); NEUTROPHILS 69.2 % (40-80); PLATELET COUNT 273 10x3/uL (130-400); RBC 3.89 10x6/uL (4.00-5.40); RDW 15.5 % (11.5-14.5); WBC 9.7 10x3/uL (4.8-10.8)
[2021-04-03 13:05] LABS: ALBUMIN 2.6 g/dL (3.4-5.0); ANION GAP 15.1 mmol/L (8-16); BILIRUBIN - TOTAL 0.51 mg/dL (0.2-1.3); CALCIUM 9.1 mg/dL (8.5-10.1); CARBON DIOXIDE 28.7 mmol/L (21.0-32.0); POTASSIUM - SERUM 3.8 mmol/L (3.5-5.1)
[2021-04-03 13:09] LABS: CREATININE - SERUM 8.7 mg/dL (0.6-1.3)
--- NOTE | 2021-04-03 13:13 | NUR ---
PATIENT ABLE TO SWALLOW WATER AND ICE CHIPS MELTED SO PAIN MED GIVEN TO PATIENT. PATIENT GOES BETWEEN ORIENTED TO SOMETIMES NOT KNOWING WHERE SHE IS BUT EASILY REORIENTED.
--- NOTE | 2021-04-03 16:22 | NUR ---
BLOOD SUGAR 67 GVE PT SOME PUDDING WITH NO PROBLEMS.
[2021-04-04] VITALS: BP 134/63
[2021-04-04 01:00] VITALS: BP 120/60
[2021-04-04 05:15] LABS: EOSINOPHILS 3.2 % (0-7)
[2021-04-04 05:18] LABS: BASOPHILS 1.1 % (0-2); HEMATOCRIT 33.5 % (36.0-48.0); LYMPHOCYTES 13.9 % (15-50); MCH 28.7 pg (26.0-34.0); MCHC 32.7 g/dL (31.0-37.0); MCV 87.7 fL (80.0-100.0); MEAN PLATELET VOLUME 7.6 fL (7.4-10.4); MONOCYTES 12.7 % (2-11); NEUTROPHILS 69.1 % (40-80); PLATELET COUNT 266 10x3/uL (130-400); RBC 3.82 10x6/uL (4.00-5.40); RDW 16.5 % (11.5-14.5); WBC 9.4 10x3/uL (4.8-10.8)
[2021-04-04 05:46] LABS: ALBUMIN 2.6 g/dL (3.4-5.0); ANION GAP 16.1 mmol/L (8-16); BILIRUBIN - TOTAL 0.54 mg/dL (0.2-1.3); CALCIUM 8.9 mg/dL (8.5-10.1); CREATININE - SERUM 9.7 mg/dL (0.6-1.3); POTASSIUM - SERUM 4.1 mmol/L (3.5-5.1); PROTEIN - SERUM 7.8 g/dL (6.4-8.2); VANCOMYCIN - RANDOM 28.9 ug/mL (10.0-20.0)
[2021-04-04 12:00] VITALS: BP 118/72
[2021-04-04 15:33] VITALS: Ht 162.6 cm; Wt 96.1 kg
--- NOTE | 2021-04-04 20:30 | NUR ---
PT IN BED, AAO X 3, RESP EVEN AND UNLABORED, NO DISTRESS NOTED, CL IN REACH, SR UP X 2.
[2021-04-05 00:04] VITALS: BP 129/71
--- NOTE | 2021-04-05 03:53 | NUR ---
I have reviewed this patient and I concur with the Shift Assessment completed by the Licensed Practical Nurse today this shift.
[2021-04-05 05:10] VITALS: BP 144/68
[2021-04-05 08:00] VITALS: BP 153/69
[2021-04-05 09:21] LABS: BASOPHILS 1.3 % (0-2); EOSINOPHILS 2.6 % (0-7); HEMATOCRIT 33.8 % (36.0-48.0); HEMOGLOBIN 11.1 g/dL (12-16); LYMPHOCYTES 17.5 % (15-50); MCH 28.6 pg (26.0-34.0); MCHC 32.8 g/dL (31.0-37.0); MCV 87.2 fL (80.0-100.0); MEAN PLATELET VOLUME 6.9 fL (7.4-10.4); MONOCYTES 14.6 % (2-11); PLATELET COUNT 316 10x3/uL (130-400); RBC 3.87 10x6/uL (4.00-5.40); RDW 15.8 % (11.5-14.5); WBC 9.4 10x3/uL (4.8-10.8)
[2021-04-05 09:30] LABS: ANION GAP 13.8 mmol/L (8-16); CALCIUM 8.8 mg/dL (8.5-10.1); CARBON DIOXIDE 30.1 mmol/L (21.0-32.0); CREATININE - SERUM 6.5 mg/dL (0.6-1.3); POTASSIUM - SERUM 3.9 mmol/L (3.5-5.1)
[2021-04-05 09:36] LABS: ALBUMIN 2.7 g/dL (3.4-5.0); BILIRUBIN - TOTAL 0.55 mg/dL (0.2-1.3); PROTEIN - SERUM 8.2 g/dL (6.4-8.2)
--- NOTE | 2021-04-05 10:19 | NUR ---
IV RESITED TO PATIENT'S RIGHT FOREARM AFTER PATIENT PULLED HER OTHER AC. STATED THAT IT WAS IN HER VEIN AND IT HURT.
[2021-04-05 12:00] VITALS: BP 103/49
--- NOTE | 2021-04-05 13:45 | NUR ---
Nutrition Reassessment/Follow-up: Extubated 04/02. Pt reports decreased appetite. Mild nausea without vomiting. Nursing reports diabetic ulcer to L foot. Agreeable to Nepro with meals. ST following. Noted plans to d/c soon. Diet: Regular, Mech Soft No PO intake recorded Wt: 211# (04/04)Adj BW: 143# Last BM: 04/02 Labs noted: Na 134, K+ 3.9, Alb 2.7 Meds noted: Phoslo, Protonix, Zofran, electrolyte protocol Est needs: 3186-1404 kcal/day (30-35 kcal/kg adj BW) 80-100 g protein/day (1.2-1.5 g/kg adj BW) Fluid: 1000 mL + UOP Nutrition Diagnosis: -Inadequate energy intake R/T decreased appetite AEB poor PO intake reported. Nutrition Goals: -PO intake >=75% avg of meals/snacks. -Meet est fluid needs without fluid overload. -Stable dry wt. -Glu, K+, PO4 wnl. Nutrition Intervention: -Encourage PO intake and honor food preferences within diet restrictions. -+Nepro with meals. -Monitor Glu, K+, PO4. -Monitor wt. -RD will follow up within 3 days.
[2021-04-05 16:00] VITALS: BP 102/61
--- NOTE | 2021-04-05 19:24 | MORECARE ---
CASE MANAGEMENT DISCHARGE SUMMARY PATIENT: KISHA NIELSEN UNIT: [id number] ADM DATE: 03/26/21 AGE: 65 : 59 SEX: F ROOM/BED: D.2974 AUTHOR: MIKALA GATES PHYSICIAN: REFERRING PHYSICIAN: PEE GARCIA MD DATE OF SERVICE: 04/05/21 Case Management Discharge Planning Summary DCP REVIEW SUMMARY ANTICIPATED D/C DATE: EXPECTED LOS : CASE STATUS: DCP Initiated INITIAL REVIEW: 03/26/2021 INITIAL REVIEWER: Tomas Bolton FINAL DISCHARGE DISPOSITION: : FINAL REVIEWER: FINAL REVIEW DATE: DCP Focus Questions & Answers DCP Evaluation QUESTION: ANSWER Patient gives permission to discuss discharge plans with: (name, relationship and number) : spouse, Giorgio Nielsen, Patient's ability to cope with chronic illness : d. No chronic illness Patient's current cognitive status: : Intermittently confused / memory changes Family / Caregiver's ability to cope with chronic illness: : a. Adequate (ability to meet patient's medical needs, ensures patient attends medical appts.) Patient and/or caregiver agree upon recommended discharge plan? : Yes Physical Status: : Mobility impaired Physical Status: : Partial care dependence Family / Caregiver's ability to cope with chronic illness: : a. Adequate (ability to meet patient's medical needs, ensures patient attends medical appts.) Functional screen assessment: : Basic needs can adequately be met by self Does the patient have the ability to pay for or attain post discharge needs / services? : Yes Partial Dependence, assistance required for: : Ambulation / Mobility Partial Dependence, assistance required for: : Bathing Partial Dependence, assistance required for: : Dressing Partial Dependence, assistance required for: : Eating Living Arrangements: : Home with Spouse/Significant Other Is there a likelihood that the patient will require additional services to return to the preadmission environment? : Yes Baseline cognitive status: : Intermittently confused / memory changes Patient with capacity for self-care or can be cared for in same environment as prior to hospitalization? : Yes Physical environment modification needed / anticipated for discharge: : No Medication Management: : Patient states can afford medications Medication Management: : Patient states can read and understand medication labels Pharmacy name(s): : "[facility] Does Patient have transportation to get home and to follow-up medical appointments when discharged from the hospital? : Yes Would patient like to participate in any Care Coordination programs (if applicable): : Not applicable Does the patient have electricity at home? : Yes Does the patient have running water in their house? : Yes Mental health screen: : No mental health history DCP Re-evaluation QUESTION: ANSWER Would patient like to participate in any Care Coordination programs (if applicable): : Not applicable PATIENT: KISHA NIELSEN ENCOUNTER: [id number] MEDICAL RECORD#: [id number] ADMISSION DATE: 03/26/2021 DISCHARGE DATE: ATTENDING MD: REMI LUA : AGE: 65 MARITAL STATUS: M DC PLAN ID: [id number] FACILITY: [facility] PRINTED ON: 04/05/21 19:24 CT All edits/amendments must be made on the electronic document DICTATION DATE: 04/05/211922 SHIFT FOREMAN: ILIANA 04/05/211922 RPT#: [id number] DC DATE: STATUS: ADM IN [facility] [address] [place] [address] END OF REPORT
--- NOTE | 2021-04-05 19:30 | NUR ---
PT IN BED, AAO X 2, RESP EVEN AND UNLABORED, NO DISTRESS NOTED, CL IN REACH, SR UP X 2.
--- NOTE | 2021-04-05 19:34 | MORECARE ---
CASE MANAGEMENT DISCHARGE SUMMARY PATIENT: KISHA NIELSEN UNIT: [id number] ADM DATE: 03/26/21 AGE: 65 : 57 SEX: F ROOM/BED: D.1724 AUTHOR: MIKALA GATES PHYSICIAN: REFERRING PHYSICIAN: PEE GARCIA MD DATE OF SERVICE: 04/05/21 Case Management Discharge Planning Summary COMMENTS ENTERED DATE: 04/05/21 19:22 CT COMMENT TYPE: Discharge Planning REVIEWER: Tomas Bolton CM met with patient to complete DC plan and to evaluate needs. Conversation with patient was spotty or itinerant and clarification is needed from family on (1) Home Health Agency choice; (2) DME company choice, and (3) DME needs. CM attempted to clarify with patient's spouse, Giorgio Nielsen, several times but no one answered the phone. No other family contact number is available. CM ascertains per this evening's conversation that the Patient lives with her spouse and is dependent on family for ADL needs. Patient stated that she does not have a walker but her is working toward getting her a scooter. The patient stated that she does not need a walker she needs a scooter. CM was unable to pin down a DME company choice from the patient. The patient is currently utilizing oxygen and may need oxygen at [place]. Patient stated that her home is safe and has electricity and running water. Patient stated that she requires assistance to move about her home and to enter her home. Patient stated that she has no problems paying for medications and she fills her medications at [facility]. Patient stated that her primary care physician is Dr. Steele in [place]. Physician's office ([phone]) may be able to provide further information and additional family contact numbers. Patient stated that she is receiving home health services through [facility] in [place]. CM called [facility] in [place] ([phone]). [facility] stated that the patient is not current with [facility] but a referral can be made to [phone]. Clinical documents faxed. Patient declined SNF, IPR, and DME. Patient voiced no other needs at this time and is satisfied with DC plan. DC IMM delivered, explained, signed by the patient, and placed in chart. Signed form also left with the patient. CM will continue to follow and will assist as needed with dc plans/needs. DCP REVIEW SUMMARY ANTICIPATED D/C DATE: EXPECTED LOS : CASE STATUS: DCP Initiated INITIAL REVIEW: 03/26/2021 INITIAL REVIEWER: Tomas Bolton FINAL DISCHARGE DISPOSITION: : FINAL REVIEWER: FINAL REVIEW DATE: DCP Focus Questions & Answers DCP Evaluation QUESTION: ANSWER Patient gives permission to discuss discharge plans with: (name, relationship and number) : spouse, Giorgio Nielsen, Patient's ability to cope with chronic illness : d. No chronic illness Patient's current cognitive status: : Intermittently confused / memory changes Family / Caregiver's ability to cope with chronic illness: : a. Adequate (ability to meet patient's medical needs, ensures patient attends medical appts.) Patient and/or caregiver agree upon recommended discharge plan? : Yes Physical Status: : Mobility impaired Physical Status: : Partial care dependence Family / Caregiver's ability to cope with chronic illness: : a. Adequate (ability to meet patient's medical needs, ensures patient attends medical appts.) Functional screen assessment: : Basic needs can adequately be met by self Does the patient have the ability to pay for or attain post discharge needs / services? : Yes Partial Dependence, assistance required for: : Ambulation / Mobility Partial Dependence, assistance required for: : Bathing Partial Dependence, assistance required for: : Dressing Partial Dependence, assistance required for: : Eating Living Arrangements: : Home with Spouse/Significant Other Is there a likelihood that the patient will require additional services to return to the preadmission environment? : Yes Baseline cognitive status: : Intermittently confused / memory changes Patient with capacity for self-care or can be cared for in same environment as prior to hospitalization? : Yes Physical environment modification needed / anticipated for discharge: : No Medication Management: : Patient states can afford medications Medication Management: : Patient states can read and understand medication labels Pharmacy name(s): : "[facility] Does Patient have transportation to get home and to follow-up medical appointments when discharged from the hospital? : Yes Would patient like to participate in any Care Coordination programs (if applicable): : Not applicable Does the patient have electricity at home? : Yes Does the patient have running water in their house? : Yes Mental health screen: : No mental health history DCP Re-evaluation QUESTION: ANSWER Would patient like to participate in any Care Coordination programs (if applicable): : Not applicable PATIENT: KISHA NIELSEN ENCOUNTER: [id number] MEDICAL RECORD#: [id number] ADMISSION DATE: 03/26/2021 DISCHARGE DATE: ATTENDING MD: REMI LUA : AGE: 65 MARITAL STATUS: M DC PLAN ID: [id number] FACILITY: [facility] PRINTED ON: 04/05/21 19:34 CT All edits/amendments must be made on the electronic document DICTATION DATE: 04/05/211933 BOARD DESIGN ENGINEER: ILIANA 04/05/211933 RPT#: [id number] DC DATE: STATUS: ADM IN [facility] [address] [place] [address] END OF REPORT
--- NOTE | 2021-04-05 21:16 | NUR ---
OT NOTE: PT REQUIRED MIN-MOD A FOR SUPINE TO SIT. PT COMPLETED EOB SITTING WITH SBA-CGA. PT COMPLETED SIT TO STAND WITH MIN-MOD A. PT REQUIRED MOD A FOR SIT TO SUPINE TO MANAGE LE. PT COMPLETED SELF FEEDING TASKS WITH SETUP. [phone] AYLEEN CRAWFORD COTA
[2021-04-05 21:21] VITALS: BP 134/33
[2021-04-06 00:27] VITALS: BP 151/72
--- NOTE | 2021-04-06 04:58 | NUR ---
I have reviewed this patient and I concur with the Shift Assessment completed by the Licensed Practical Nurse today this shift.
[2021-04-06 06:16] VITALS: BP 109/47
[2021-04-06 08:10] VITALS: BP 144/60
[2021-04-06] MEDS ORDERED: ADOXA100 MG PO (09:14)
[2021-04-06] MEDS ORDERED: PHOSLO667 MG NG (09:14)
--- NOTE | 2021-04-06 11:28 | MORECARE ---
CASE MANAGEMENT DISCHARGE SUMMARY PATIENT: KISHA NIELSEN UNIT: [id number] ADM DATE: 03/26/21 AGE: 65 : 59 SEX: F ROOM/BED: D.4844 AUTHOR: MIKALA GATES PHYSICIAN: REFERRING PHYSICIAN: PEE GARCIA MD DATE OF SERVICE: 04/06/21 Case Management Discharge Planning Summary COMMENTS ENTERED DATE: 04/05/21 19:22 CT COMMENT TYPE: Discharge Planning REVIEWER: Tomas Bolton CM met with patient to complete DC plan and to evaluate needs. Conversation with patient was spotty or itinerant and clarification is needed from family on (1) Home Health Agency choice; (2) DME company choice, and (3) DME needs. CM attempted to clarify with patient's spouse, Giorgio Nielsen, several times but no one answered the phone. No other family contact number is available. CM ascertains per this evening's conversation that the Patient lives with her spouse and is dependent on family for ADL needs. Patient stated that she does not have a walker but her is working toward getting her a scooter. The patient stated that she does not need a walker she needs a scooter. CM was unable to pin down a DME company choice from the patient. The patient is currently utilizing oxygen and [place] need [facility] at [place]. Patient stated that her home is safe and has electricity and running water. Patient stated that she requires assistance to move about her home and to enter her home. Patient stated that she has no problems paying for medications and she fills her medications at "[facility]. Patient stated that her primary care physician is Dr. Steele in [place]. Physician's office ([phone]) may be able to provide further information and additional family contact numbers. Patient stated that she is receiving home health services through [facility] in [place]. CM called [facility] in [place] ([phone]). [facility] stated that the patient is not current with [facility] but a referral can be made to [phone]. Clinical documents faxed. Patient declined SNF, IPR, and DME. Patient voiced no other needs at this time and is satisfied with DC plan. DC IMM delivered, explained, signed by the patient, and placed in chart. Signed form also left with the patient. CM will continue to follow and will assist as needed with dc plans/needs. Appended by Jenny Garcias on 04/06/2021 11:20 CDT: addendum to note: Pt states that husbands number has changed. [phone] cell [phone] work DCP REVIEW SUMMARY ANTICIPATED D/C DATE: EXPECTED LOS : CASE STATUS: DCP Initiated INITIAL REVIEW: 03/26/2021 INITIAL REVIEWER: Tomas Bolton FINAL DISCHARGE DISPOSITION: : FINAL REVIEWER: FINAL REVIEW DATE: DCP Focus Questions & Answers DCP Evaluation QUESTION: ANSWER Patient and/or caregiver agree upon recommended discharge plan? : Yes Family / Caregiver's ability to cope with chronic illness: : a. Adequate (ability to meet patient's medical needs, ensures patient attends medical appts.) Patient's current cognitive status: : Intermittently confused / memory changes Patient's ability to cope with chronic illness : d. No chronic illness Patient gives permission to discuss discharge plans with: (name, relationship and number) : spouse, Giorgio Nielsen, Does the patient have the ability to pay for or attain post discharge needs / services? : Yes Functional screen assessment: : Basic needs can adequately be met by self Family / Caregiver's ability to cope with chronic illness: : a. Adequate (ability to meet patient's medical needs, ensures patient attends medical appts.) Physical Status: : Partial care dependence Physical Status: : Mobility impaired Is there a likelihood that the patient will require additional services to return to the preadmission environment? : Yes Living Arrangements: : Home with Spouse/Significant Other Partial Dependence, assistance required for: : Eating Partial Dependence, assistance required for: : Dressing Partial Dependence, assistance required for: : Bathing Partial Dependence, assistance required for: : Ambulation / Mobility Patient with capacity for self-care or can be cared for in same environment as prior to hospitalization? : Yes Baseline cognitive status: : Intermittently confused / memory changes Physical environment modification needed / anticipated for discharge: : No Medication Management: : Patient states can read and understand medication labels Medication Management: : Patient states can afford medications Pharmacy name(s): : "[facility] Does Patient have transportation to get home and to follow-up medical appointments when discharged from the hospital? : Yes Would patient like to participate in any Care Coordination programs (if applicable): : Not applicable Does the patient have electricity at home? : Yes Does the patient have running water in their house? : Yes Mental health screen: : No mental health history DCP Re-evaluation QUESTION: ANSWER Would patient like to participate in any Care Coordination programs (if applicable): : Not applicable PATIENT: KISHA NIELSEN ENCOUNTER: [id number] MEDICAL RECORD#: [id number] ADMISSION DATE: 03/26/2021 DISCHARGE DATE: ATTENDING MD: REMI LUA : AGE: 65 MARITAL STATUS: M DC PLAN ID: [id number] FACILITY: [facility] PRINTED ON: 04/06/21 11:27 CT All edits/amendments must be made on the electronic document DICTATION DATE: 04/06/211126 POULTICE MACHINE OPERATOR: ILIANA 04/06/211126 RPT#: [id number] DC DATE: STATUS: ADM IN [facility] [address] [place] [address] END OF REPORT
--- NOTE | 2021-04-06 11:51 | NUR ---
OT NOTRE: PT DOING BETTER WITH ADLS AND TRANSFERS TODAY.. CONTINUES TO HAVE DIFFICULTY WITH ADVANCING STEPS WITH USE OF WALKER AND ALSO WALLKER MGMT. BED MOB WITH MIN ASSIST FOR SUPINE TO SIT; TRANSFERRED FROM BED TO CHAIR WITH WALKER, MIN/MOD ASSIST, AND MOD CUES. PROVIDED BASIN AND PT WAS ABLE TO PERFORM FULL BATH WITH ONLY OCCASSIONAL ASSIST; ABLE TO RENAN GOWN WTIH MIN ASSIST AND ABLE TO DOFF SOCKS, CLEAN FEET, AND RENAN CLEAN SOCKS WITH SET UP AND EXT TIME. SIMPLE GROOMING WITH SET UP. PT REPORTING THAT SHE IS GOING HOME TODAY. I THINK SHE WOULD BENEFIT FROM REHAB, HOWEVER SHE WANTS TO GO HOME VIDA CHENG, OTR/L [phone]
--- NOTE | 2021-04-06 16:01 | NUR ---
OT NOTE: PT REQUESTED BACK TO BED. PT REQUIRED MIN A FOR SIT TO STAND. PT REQUIRED VERBAL CUES TO BRING FEET FORWARD. PT EXHIBITED DIFFICULTY WITH STEP TAKING DURING TRANSFERS. PT REQUIRED MIN A FOR TRANSFER. PT COMPLETED BED MOBILITY WITH MOD A FOR SCOOT UP IN BED. CL IN REACH. [phone] THANK YOU,MELISSA DUENAS
--- NOTE | 2021-04-06 20:15 | NUR ---
PPT DISCHARGED TO HOME VIA PERSONAL CAR, DISCHARGE INSTRUCTIONS GIVEN TO PT AND SPOUSE, PT AMBULATED TO PERSONAL VEHICLE WITH ASSISTANCE.
--- NOTE | 2021-04-07 09:58 | MORECARE ---
CASE MANAGEMENT DISCHARGE SUMMARY PATIENT: KISHA NIELSEN UNIT: [id number] ADM DATE: 03/26/21 AGE: 65 : 59 SEX: F ROOM/BED: D.3984 AUTHOR: MIKALA GATES PHYSICIAN: REFERRING PHYSICIAN: PEE GARCIA MD DATE OF SERVICE: 04/07/21 Case Management Discharge Planning Summary COMMENTS ENTERED DATE: 04/05/21 19:22 CT COMMENT TYPE: Discharge Planning REVIEWER: Tomas Bolton CM met with patient to complete DC plan and to evaluate needs. Conversation with patient was spotty or itinerant and clarification is needed from family on (1) Home Health Agency choice; (2) DME company choice, and (3) DME needs. CM attempted to clarify with patient's spouse, Giorgio Nielsen, several times but no one answered the phone. No other family contact number is available. CM ascertains per this evening's conversation that the Patient lives with her spouse and is dependent on family for ADL needs. Patient stated that she does not have a walker but her is working toward getting her a scooter. The patient stated that she does not need a walker she needs a scooter. CM was unable to pin down a DME company choice from the patient. The patient is currently utilizing oxygen and may need oxygen at [place]. Patient stated that her home is safe and has electricity and running water. Patient stated that she requires assistance to move about her home and to enter her home. Patient stated that she has no problems paying for medications and she fills her medications at "[facility]. Patient stated that her primary care physician is Dr. Steele in [place]. Physician's office ([phone]) may be able to provide further information and additional family contact numbers. Patient stated that she is receiving home health services through [facility] [place] in [place]. CM called [facility] [place] ([phone]). [facility] stated that the patient is not current with [facility] but a referral can be made to [phone]. Clinical documents faxed. Patient declined SNF, IPR, and DME. Patient voiced no other needs at this time and is satisfied with DC plan. DC IMM delivered, explained, signed by the patient, and placed in chart. Signed form also left with the patient. CM will continue to follow and will assist as needed with dc plans/needs. Appended by Jenny Garcias on 04/06/2021 11:20 CDT: addendum to note: Pt states that husbands number has changed. [phone] cell [phone] work DCP REVIEW SUMMARY ANTICIPATED D/C DATE: EXPECTED LOS : CASE STATUS: DCP Initiated INITIAL REVIEW: 03/26/2021 INITIAL REVIEWER: Tomas Bolton FINAL DISCHARGE DISPOSITION: : FINAL REVIEWER: FINAL REVIEW DATE: DCP Focus Questions & Answers DCP Evaluation QUESTION: ANSWER Patient and/or caregiver agree upon recommended discharge plan? : Yes Family / Caregiver's ability to cope with chronic illness: : a. Adequate (ability to meet patient's medical needs, ensures patient attends medical appts.) Patient's current cognitive status: : Intermittently confused / memory changes Patient's ability to cope with chronic illness : d. No chronic illness Patient gives permission to discuss discharge plans with: (name, relationship and number) : spouse, Giorgio Nielsen, Does the patient have the ability to pay for or attain post discharge needs / services? : Yes Functional screen assessment: : Basic needs can adequately be met by self Family / Caregiver's ability to cope with chronic illness: : a. Adequate (ability to meet patient's medical needs, ensures patient attends medical appts.) Physical Status: : Partial care dependence Physical Status: : Mobility impaired Is there a likelihood that the patient will require additional services to return to the preadmission environment? : Yes Living Arrangements: : Home with Spouse/Significant Other Partial Dependence, assistance required for: : Eating Partial Dependence, assistance required for: : Dressing Partial Dependence, assistance required for: : Bathing Partial Dependence, assistance required for: : Ambulation / Mobility Patient with capacity for self-care or can be cared for in same environment as prior to hospitalization? : Yes Baseline cognitive status: : Intermittently confused / memory changes Physical environment modification needed / anticipated for discharge: : No Medication Management: : Patient states can read and understand medication labels Medication Management: : Patient states can afford medications Pharmacy name(s): : "[facility] Does Patient have transportation to get home and to follow-up medical appointments when discharged from the hospital? : Yes Would patient like to participate in any Care Coordination programs (if applicable): : Not applicable Does the patient have electricity at home? : Yes Does the patient have running water in their house? : Yes Mental health screen: : No mental health history DCP Re-evaluation QUESTION: ANSWER Would patient like to participate in any Care Coordination programs (if applicable): : Not applicable PATIENT: KISHA NIELSEN ENCOUNTER: [id number] MEDICAL RECORD#: [id number] ADMISSION DATE: 03/26/2021 DISCHARGE DATE: 04/06/2021 ATTENDING MD: REMI LUA : AGE: 65 MARITAL STATUS: M DC PLAN ID: [id number] FACILITY: [facility] PRINTED ON: 04/07/21 9:57 CT All edits/amendments must be made on the electronic document DICTATION DATE: 04/07/21956 AUDITOR SUPERVISOR: ILIANA 04/07/21956 RPT#: [id number] DC DATE:04/06/21 STATUS: DIS IN [facility] [address] [place] [address] END OF REPORT
--- NOTE | 2021-04-07 20:49 | MORECARE ---
CASE MANAGEMENT DISCHARGE SUMMARY PATIENT: KISHA NIELSEN UNIT: [id number] ADM DATE: 03/26/21 AGE: 65 : 59 SEX: F ROOM/BED: D.5984 AUTHOR: MIKALA GATES PHYSICIAN: REFERRING PHYSICIAN: PEE GARCIA MD DATE OF SERVICE: 04/07/21 Case Management Discharge Planning Summary COMMENTS ENTERED DATE: 04/05/21 19:22 CT COMMENT TYPE: Discharge Planning REVIEWER: Tomas Bolton CM met with patient to complete DC plan and to evaluate needs. Conversation with patient was spotty or itinerant and clarification is needed from family on (1) Home Health Agency choice; (2) DME company choice, and (3) DME needs. CM attempted to clarify with patient's spouse, Giorgio Nielsen, several times but no one answered the phone. No other family contact number is available. CM ascertains per this evening's conversation that the Patient lives with her spouse and is dependent on family for ADL needs. Patient stated that she does not have a walker but her is working toward getting her a scooter. The patient stated that she does not need a walker she needs a scooter. CM was unable to pin down a DME company choice from the patient. The patient is currently utilizing oxygen and may need oxygen at [place]. Patient stated that her home is safe and has electricity and running water. Patient stated that she requires assistance to move about her home and to enter her home. Patient stated that she has no problems paying for medications and she fills her medications at "[facility]. Patient stated that her primary care physician is Dr. Steele in [place]. Physician's office ([phone]) may be able to provide further information and additional family contact numbers. Patient stated that she is receiving home health services through [facility] in [place]. CM called [facility] in [place] ([phone]). [facility] stated that the patient is not current with [facility] but a referral can be made to [phone]. Clinical documents faxed. Patient declined SNF, IPR, and DME. Patient voiced no other needs at this time and is satisfied with DC plan. DC IMM delivered, explained, signed by the patient, and placed in chart. Signed form also left with the patient. CM will continue to follow and will assist as needed with dc plans/needs. Appended by Jenny Garcias on 04/06/2021 11:20 CDT: addendum to note: Pt states that husbands number has changed. [phone] cell [phone] work DCP REVIEW SUMMARY ANTICIPATED D/C DATE: EXPECTED LOS : CASE STATUS: DCP Initiated INITIAL REVIEW: 03/26/2021 INITIAL REVIEWER: Tomas Bolton FINAL DISCHARGE DISPOSITION: : FINAL REVIEWER: FINAL REVIEW DATE: DCP Focus Questions & Answers DCP Evaluation QUESTION: ANSWER Patient and/or caregiver agree upon recommended discharge plan? : Yes Family / Caregiver's ability to cope with chronic illness: : a. Adequate (ability to meet patient's medical needs, ensures patient attends medical appts.) Patient's current cognitive status: : Intermittently confused / memory changes Patient's ability to cope with chronic illness : d. No chronic illness Patient gives permission to discuss discharge plans with: (name, relationship and number) : spouse, Giorgio Nielsen, Does the patient have the ability to pay for or attain post discharge needs / services? : Yes Functional screen assessment: : Basic needs can adequately be met by self Family / Caregiver's ability to cope with chronic illness: : a. Adequate (ability to meet patient's medical needs, ensures patient attends medical appts.) Physical Status: : Partial care dependence Physical Status: : Mobility impaired Is there a likelihood that the patient will require additional services to return to the preadmission environment? : Yes Living Arrangements: : Home with Spouse/Significant Other Partial Dependence, assistance required for: : Eating Partial Dependence, assistance required for: : Dressing Partial Dependence, assistance required for: : Bathing Partial Dependence, assistance required for: : Ambulation / Mobility Patient with capacity for self-care or can be cared for in same environment as prior to hospitalization? : Yes Baseline cognitive status: : Intermittently confused / memory changes Physical environment modification needed / anticipated for discharge: : No Medication Management: : Patient states can read and understand medication labels Medication Management: : Patient states can afford medications Pharmacy name(s): : "[facility] Does Patient have transportation to get home and to follow-up medical appointments when discharged from the hospital? : Yes Would patient like to participate in any Care Coordination programs (if applicable): : Not applicable Does the patient have electricity at home? : Yes Does the patient have running water in their house? : Yes Mental health screen: : No mental health history DCP Re-evaluation QUESTION: ANSWER Would patient like to participate in any Care Coordination programs (if applicable): : Not applicable PATIENT: KISHA NIELSEN ENCOUNTER: [id number] MEDICAL RECORD#: [id number] ADMISSION DATE: 03/26/2021 DISCHARGE DATE: 04/06/2021 ATTENDING MD: REMI LUA : AGE: 65 MARITAL STATUS: M DC PLAN ID: [id number] FACILITY: [facility] PRINTED ON: 04/07/21 20:49 CT All edits/amendments must be made on the electronic document DICTATION DATE: 04/07/212048 PUBLIC WORKS MANAGER: ILIANA 04/07/212048 RPT#: [id number] DC DATE:04/06/21 STATUS: DIS IN [facility] [address] [place] [address] END OF REPORT
== END 2021-04-06 20:15 | disposition home health service (06) | DRG 870 ==
LOC: D.ER 18:02 → D.EDHOLD 20:00 → D.ICU 20:00 → D.M2 04-04 06:03
PROVIDERS: Emergency Medicine; Family Medicine; Internal Medicine Pulmonary Disease; ADMIT Emergency Medicine; ATTEND Emergency Medicine
PROC: 0BH17EZ Insertion of Endotracheal Airway into Trachea, Via Natural or Artificial Opening (ICD-10-PCS; principal; 2021-03-26)
PROC: 5A1955Z Respiratory Ventilation, Greater than 96 Consecutive Hours (ICD-10-PCS; 2021-03-26)
PROC: 0HBNXZZ Excision of Left Foot Skin, External Approach (ICD-10-PCS; 2021-03-27)
DX: A41.9 Sepsis, unspecified organism (principal); J69.0 Pneumonitis due to inhalation of food and vomit; J96.00 Acute respiratory failure, unspecified whether with hypoxia or hypercapnia; G93.41 Metabolic encephalopathy; N18.6 End stage renal disease; J96.01 Acute respiratory failure with hypoxia; J15.0 Pneumonia due to Klebsiella pneumoniae; I12.0 Hypertensive chronic kidney disease with stage 5 chronic kidney disease or end stage renal disease; N25.81 Secondary hyperparathyroidism of renal origin; E11.52 Type 2 diabetes mellitus with diabetic peripheral angiopathy with gangrene; I96 Gangrene, not elsewhere classified; E11.65 Type 2 diabetes mellitus with hyperglycemia; E11.22 Type 2 diabetes mellitus with diabetic chronic kidney disease; Z99.2 Dependence on renal dialysis; D63.1 Anemia in chronic kidney disease; E11.621 Type 2 diabetes mellitus with foot ulcer; L97.529 Non-pressure chronic ulcer of other part of left foot with unspecified severity; E87.5 Hyperkalemia; F41.9 Anxiety disorder, unspecified